=== PATIENT | female | born 1935 | race Caucasian/White ===

== ENCOUNTER 2024-03-30 19:30 | Inpatient (IN) ==
--- OUTSIDE RECORDS SUMMARY | 2024-03-30 19:37 | External Medical Summary | Summary of Care ---
Author Name Unknown Organization [facility] Address [address] [facility] [place] [address] Phone [phone] Care Team Providers Care Tie Mill Operator Name Role Phone Brody Marin PA-C Primary Care Provider Encounter Details Date Type Department Care Team (Late st Contact Info) Description 12/07/2023 Result Scan Unspecified Department <No scans attached> Allergies No known active allergiesdocumented as of this encounter (statuses as of 01/09/2024) Medications Medication Sig Dispensed Refills Start Date End Date Status ASPIRIN 81 MG PO TABS one daily 0 Act rosmery CALCIUM 600 600 MG PO TABS daily 0 Active GABAPENTIN 300 MG PO CAPS one daily at bedtime 0 Active EQL PAIN RELIEF EXTRA STRENGTH 500 MG PO CAPS 2 tablets every 4-6 hours as needed for back pain 0 Active Losartan Potassium 100 MG Tablet Take 1 Tablet by mouth in the morning. In the morning.. 0 02/09/2016 Active Vit-Fe Fumarate-FA (PNV PLUS MULTIVITAMIN) 27-1 MG TABS TAKE ONE TABLET BY MOUTH DAILY AT NOON 1 04/09/2016 Active nitroglycerin (NITROSTAT) 0.[address] ONE UNDER TONGUE NEEDED FOR CHEST PAIN 1 08/24/2016 Active amLODIPine (NORVASC) 2.5 MG TabletIndications:S/P AVR (aortic valve replacement),S/P CABG (coronary artery bypass graft),Systolic hypertension Take 1 Tab by mouth daily. 90 Tab 11 11/02/2016 Active glipiZIDE (GLUCOTROL) 10 MG Tablet Take 1 Tablet by mouth in the morning. 0 Active furosemide (LASIX) 20 MG Tablet Take 1 tablet every OTHER day. 30 Tab 5 02/18/2019 Active Atorvastatin Calcium 10 MG Oral Tablet (Lipitor) Take 1 Tablet by mouth in the morning. 0 08/29/2021 Active Metoprolol Succinate ER 25 MG Oral Tablet Extended Release 24 Hour (toPROL XL) Take 1 Tablet by mouth in the morning. 0 09/17/2021 Active documented as of this encounter (statuses as of 01/09/2024) Active Problems Problem Noted Date Diagnosed Date Chronic heart failure with preserved ejection fr action 12/21/2023 Dyslipidemia, goal LDL below 70 12/21/2023 S/P CABG x 3 12/21/2023 CAD (coronary artery disease) 12/24/2013 Aortic valve stenosis 12/24/2013 Postoperative anemia due to acute blood loss Thrombocytopenia 12/24/2013 HTN, goal below 140/80 12/24/2013 Diabetes mellitus type 2, controlled 12/24/2013 Left ventricular diastolic dysfunction, NYHA cla ss 1 12/24/2013 documented as of this encounter (statuses as of 01/09/2024) Immunizations Name Administration Dates Next Due Pneumococcal Conjugate Vacc, 13 Valent (Prevnar) 06/16/2017 Pneumococcal Polysaccharide PPV23 (Pneumovax) Season Influenza, Quad, PF, Adjuvanted, 65+ Yrs, IM (FLUAD) 07/07/2020 Seasonal Influenza, PF, 6 M & above, IM , (FluLaval or Fluzone) 08/20/2018,06/16/2017 documented as of this encounter Social History Tobacco Use Types Packs/Day Years Used Date Smoking Tobacco: Never Smokeless Tobacco: Never Alcohol Use Standard Drinks/Week Comments Not Asked 0 (1 standard drink = 0.6 oz pur e alcohol) Sex and Gender Information Value Date Recorded Sex Assigned at Not on file Gender Identity Not on file Sexual Orientation Not on file Job Start Date Occupation Industry Not on file Not on file Not on file documented as of this encounter Functional Status Functional Status Response Date of Assess ment Do you have serious difficul ty walking or climbing stairs? (5 years old or older) No 12/17/2013 documented as of this encounter Plan of Treatment Upcoming Encounters Date Type Department Care Team (Late st Contact Info) Description 12/26/2024 9:30 AM EDT Office Visit Cardiology [address] [place] [address] Aurea Corado PA-C [address] [place] [address] Health Maintenance Due Date Last Done Comments Depression Screening 1947 Diabetic Eye Exam 1953 Diabetic Foot Exam 1953 DTaP,Tdap,and Td Vaccines (1 - Tdap) 1954 Zoster Vaccines (1 of 2) 1985 DXA Scan 09/22/2018 09/22/2011 COVID-19 Vaccine (3 - season) 2023 01/05/2021, 12/15/2020 HbA1c 05/26/2023 11/23/2022, 09/05, 09/12/2018, Additional history exists Albumin/Creatinine Ratio 11/24/2023 023, 09/28/2021, 09/12/2018, Additional history exists Influenza Vaccine (FLU shot) (Season Ended) 2024 07/07/2020, 08/20/2018, 06/16/2017 Pneumococcal Vaccine: 65+ Years Completed 12/20/2022, 06/16/2017, 04/17/2014 GARDASIL-HPV IMMUNIZATION SERIES Aged Out No longer eligible based on patient's age to complete this topic Hepatitis B Aged Out No longer eligi ble based on patient's age to complete this topic MENINGOCOCCAL (MENACTRA/MENVEO) Aged Out No longer eligible based on patient's age to complete this topic documented as of this encounter Medical Devices Implanted Type Area Test Puller Device Identifier Shelf Expiration Date Model / Serial / Lot Valve Aor Tamayo Ii 23mm T505 - [id number] Implanted:Qty : 1 on 12/17/2013 at OR [facility] [place] Tissue - Non Human N/A: Heart [employer] : CARDIAC SURGERY 10/27/2016 23-T505 / [id number] / Marker Coronary [facility] - [id number] Implanted:Qty : 2 on 12/17/2013 at OR [facility] N/A: Heart [employer] 10/04/2016 [facility] / / [id number] Sut Steel 6 M654g - [id number] Implanted:Qty : 6 on 12/17/2013 at OR [facility] N/A: Chest JNJ : [employer] 10/04/2018 [id number] / / [id number] documented as of this encounter Procedures Procedure Name Priority Date/Time Associated Diagnosis Comments EKG SCANNED RESULT 12/07/2023 documented in this encounter Results * EKG SCANNED RESULT (12/07/2023) 12/07/2023 No Physician Data Unknown EKG documented in this encounter Advance Directives Latest Code Status on File Code Status Date Activated Date Inactivated Comments Full Code 12/17/2013 1:45 PM 12/24/2013 3:32 PM This order reflects the patients wishes and were consensually agreed upon. Care Teams Tie Mill Operator Relationship Specialty Start Date End Date Brody Marin PA-C [address] [place] [id number] PCP - General Physician Software Engineer Sales 10/19/21 documented as of this encounter
--- OUTSIDE RECORDS SUMMARY | 2024-03-30 19:37 | External Medical Summary | Summary of Care ---
Author Name Unknown Organization [facility] Address [address] [facility] [address] Phone [phone] Care Team Providers Care Supervisor Sewer System Name Role Phone Brody Marin PA-C Primary Care Provider Encounter Details Date Type Department Care Team (Late st Contact Info) Description 11/04/2023 Result Scan Unspecified Department <No scans attached> [...] 12/26/2024 9:30 AM EDT Office Visit Cardiology [address] [place] [address] Aurea Corado PA-C [address] [place] [address] Health Maintenance Due Date Last Done Comments [...] this encounter Medical Devices Implanted Type Area Glass Or Mirror Inspector Device Identifier Shelf Expiration Date Model / Serial / Lot Valve Aor Tamayo Ii 23mm T505 - [id number] Implanted:Qty : 1 on 12/17/2013 at OR [facility] [place] Tissue - Non Human N/A: Heart [employer] : CARDIAC SURGERY 10/27/2016 23-T505 / [id number] / Marker Coronary [facility] - [id number] Implanted:Qty : 2 on 12/17/2013 at OR [facility] [place] [facility] N/A: Heart [employer] 10/04/2016 [facility] / / [id number] Sut Steel 6 M654g - [id number] Implanted:Qty : 6 on 12/17/2013 at OR [facility] [place] N/A: Chest JNLore : [employer] 10/04/2018 M654G / / [id number] documented as of this encounter Procedures Procedure Name Priority Date/Time Associated Diagnosis Comments ECHOCARDIOLOGY SCANNED RESULT 11/04/2023 documented in this encounter Results * ECHOCARDIOLOGY SCANNED RESULT (11/04/2023) 11/04/2023 No Physician Data Unknown ECHOCARDIOLOGY documented in this encounter Advance Directives Latest Code Status on File Code Status Date Activated Date Inactivated Comments Full Code 12/17/2013 1:45 PM 12/24/2013 3:32 PM This order reflects the patients wishes and were consensually agreed upon. Care Teams Supervisor Sewer System Relationship Specialty Start Date End Date Brody Marin PA-C [address] [place] [id number] PCP - General Physician Bariatric Coordinator 10/19/21 documented as of this encounter
--- OUTSIDE RECORDS SUMMARY | 2024-03-30 19:37 | External Medical Summary | Summary of Care ---
Author Name Unknown Organization [facility] [address] [facility] [address] Phone [phone] Care Team Providers Care Cook Candy Name Role Phone Brody Marin PA-C Primary Care Provider Reason for Visit * Reason Comments Follow Up Yearly follow up. Fl utter a couple weeks ago but drank more water and it subsided. Edema under control with diuretic. Denies chest pain, SOB and dizziness. Encounter Details Date Type Department Care Team (Late st Contact Info) Description 12/21/2023 1:00 PM EDT Office Visit Cardiology [address] [place] [phone] Aurea Corado PA-C [address] [place] [phone] S/P AVR (aortic valve replacement)*; Coronary artery disease involving [place] coronary artery of [place] heart without angina pectoris; S/P CABG x 3; HTN, goal below 140/80; Dyslipidemia, goal LDL below 70; Chronic heart failure with preserved ejection fraction (HCC) Allergies No known active allergiesdocumented as of this encounter (statuses as of 12/21/2023) Medications Medication Sig Dispensed Refills Start Date End Date Status ASPIRIN 81 MG PO TABS one daily 0 Active CALCIUM 600 600 MG PO TABS daily [...] 1 08/24/2016 Active amLODIPine (NORVASC) 2.5 MG TabletIndications:S /P AVR (aortic valve replacement),S/P CABG (coronary artery [...] mouth in the morning. 0 09/17/2021 Active Januvia 50 MG Oral Tablet Take 1 Tablet by mouth in the morning. 0 Active Jardiance 25 MG Oral Tablet Take 1 Tablet by mouth in the morning. 0 10/14/2021 12/21/2023 Discontinued (Patient preference/d iscontinuati on) Potassium Chloride ER 10 MEQ Oral Capsule Extended Release TAKE 1 CAPSULE BY MOUTH ONCE A DAY WHEN TAKING THE SECOND LASIX DOSE 0 09/14/2021 12/21/2023 Discontinued (Medication List Clean Up) documented as of this encounter (statuses as of 12/21/2023) Active Problems Problem Noted Date Diagnosed Date [...] as of this encounter (statuses as of 12/21/2023) Immunizations Name Administration Dates Next Due Pneumococcal [...] Never Alcohol Use Standard Drinks/Week Comments Not Currently 0 (1 standard drink = 0.6 oz pur e alcohol) Sex and Gender Information Value Date Recorded Sex Assigned at Not on file Gender Identity Not on file Sexual Orientation Not on file Job Start Date Occupation Industry Not on file Not on file Not on file documented as of this encounter Last Filed Vital Signs Vital Sign Reading Time Taken Comments Blood Pressure 128/66 12/21/2023 1:05 PM EDT Pulse 72 12/21/2023 1:05 PM EDT Temperature - - Respiratory Rate 16 12/21/2023 1:05 PM EDT Oxygen Saturation - - Inhaled Oxygen Concentration - - Weight - - Height - - Body Mass Index - - documented in this encounter Functional Status Functional Status Response Date of Assess ment Do you have serious difficul ty walking or climbing stairs? (5 years old or older) No 12/17/2013 documented as of this encounter Progress Notes * Aurea Corado PA-C - 12/21/2023 1:12 PM EDT Images from the original note were not included. 12/21/2023 Cardiology F/U: SUBJECTIVE: Paloma Skinner is a 88 year old female who presents today with her daughter for routine cardiology follow-up. Last clinic evaluation approximately [address] Epps. History includes: 1. Status post cardiac surgery December 2013 for severe calcific aortic disease and diffuse coronary atherosclerosis, receiving a 23 mm Tamayo bioprosthesis and coronary bypass grafting with a GARCIA graft to LAD, saphenous vein graft to the right coronary artery and saphenous vein graft to the obtuse marginal. 2. Mixed cardiomyopathy with congestive heart failure at initial presentation with return to near normal LV function post recovery. EF 50% echocardiogram 10/29/2015, stable per November 2023 3. Nonspecific intraventricular conduction delay. 4. History of iron-deficiency anemia. 5. Hypertension. 6. Bilateral carotid artery disease 7. Chronic renal insufficiency class 3 8. Labile hypertension Elan hospitalized at [facility] in November 2023 with complaints of worsening shortness of breath. She was found to have acute on chronic heart failure with preserved ejection fraction with mild pulmonaryedema on chest x-ray and small right pleural effusion. She was treated with IV Lasix initially with significant improvement. Echo revealed preserved LV systolic function with mild LVH and grade 2 diastolic dysfunction. Bioprosthetic aortic valve with normal gradients. During admission she had several episodes of nonsustained atrial tachycardia. Ongoingbeta-carlin recommended. No medication changes were made on discharge. She presents today feeling well. She saw her PCP last week who made no medication changes. She is taking furosemide 20 mg every other day. She has been weighing herself several times per week and this is stable. She notes great improvement in her shortness of breath since hospital discharge. No worsening lower extremity edema. No recent chest pain. Tolerating medications. She voices no acute cardiac concerns today. Patient and daughter questioned whether or not they need to take potassium supplementation. She hasnot been taking her potassium at home. Per review of labs from [facility], her potassium was on the upper limit of normal around 5.0. Review of Systems: See HPI for pertinent positives. All others negative, other than those noted in HPI. Patient Active Problem List Diagnosis Code CAD (coronary artery disease) I25.10 Aortic valve stenosis I35.0 Postoperative anemia due to acute blood loss D62 Thrombocytopenia ([facility]) D69.6 HTN, goal below 140/80 I10 Diabetes mellitus type 2, controlled ([facility]) E11.9 Left ventricular diastolic dysfunction, NYHA class 1 I51.89 Review of patient's allergies indicates: No Known Allergies Current Outpatient Medications Medication Sig Dispense Refill ASPIRIN 81 MG PO TABS one daily CALCIUM 600 600 MG PO TABS daily GABAPENTIN 300 MG PO CAPS one daily at bedtime EQL PAIN RELIEF EXTRA STRENGTH 500 MG PO CAPS 2 tablets every 4-6 hours as needed for back pain Losartan Potassium 100 MG Tablet Take 1 Tablet by mouth in the morning. In the morning.. 0 Vit-Fe Fumarate-FA (PNV PLUS MULTIVITAMIN) 27-1 MG TABS TAKE ONE TABLET BY MOUTH DAILY AT NOON 1 amLODIPine (NORVASC) 2.5 MG Tablet Take 1 Tab by mouth daily. 90 Tab 11 glipiZIDE (GLUCOTROL) 10 MG Tablet Take 1 Tablet by mouth in the morning. furosemide (LASIX) 20 MG Tablet Take 1 tablet every OTHER day. 30 Tab 5 Atorvastatin Calcium 10 MG Oral Tablet (Lipitor) Take 1 Tablet by mouth in the morning. Metoprolol Succinate ER 25 MG Oral Tablet Extended Release 24 Hour (toPROL XL) Take 1 Tablet by mouth in the morning. Potassium Chloride ER 10 MEQ Oral Capsule Extended Release TAKE 1 CAPSULE BY MOUTH ONCE A DAY WHEN TAKING THE SECOND LASIX DOSE nitroglycerin (NITROSTAT) 0.[address] ONE UNDER TONGUE NEEDED FOR CHEST PAIN (Patient not taking: No sig reported) 1 Januvia 50 MG Oral Tablet Take 1 Tablet by mouth in the morning. No current facility-administered medications for this visit. OBJECTIVE/PHYSICAL EXAMINATION: BP 128/66 | Pulse 72 | Resp 16 No weight performed today. General: no acute distress and stated age Head: normocephalic, no masses, lesions, tenderness or abnormalities Eyes: conjunctiva are pink and non-injected, sclera clear Throat: clear Nares: without discharge Neck: supple, no adenopathy, , normal jugular venous pulse, no hepatojugular reflux, there are bilateral carotid artery bruits Chest: normal shape and normal respiratory effort Lungs: clear to auscultation and percussion Cardiac Exam: - regular rate & rhythm, is a grade 2/6 systolic murmur with crisp valve closure sounds Pulses: 2(+) throughout Abdomen: abdomen soft, non-tender, no abnormal masses, no hepatosplenomegaly, no abdominal bruit, no femoral bruit Musculoskeletal: no gait disturbance, no joint inflammation, no deforming arthritis Extremities 1+ edema, no cyanosis, pulses intact 2+/4 Neuro: grossly normal exam Data: Echocardiogram report reviewed from [facility] dated November 04, 2023: Echo report reviewed dated Jun 2023: Interpretation Summary The qualitative LV ejection fraction is 55-59% (normal). The LV wall thickness is mildly increased (concentric). The left atrium is moderately enlarged (42-48 ml/m^2). The left ventricular diastolic function is moderately abnormal (grade II). There is an aortic valve bioprosthetic present. The aortic valve prosthesis systolic gradients are normal for this type prosthesis. Significant aortic valve prosthesis regurgitation is absent. Mild mitral regurgitation is present. Compared to prior study of 06/10/2021, there is no significant change. EKG October 19, 2021, personally reviewed Sinus rhythm at 61 beats per minute with nonspecific interventricular conduction delay Q-waves anteroseptal No significant change from prior Echocardiogram June 10, 2021 The qualitative LV ejection fraction is 45-49% (mildly reduced). There is an aortic valve bioprosthetic present. The aortic valve prosthesis systolic gradients are normal for this type prosthesis. Significant aortic valve prosthesis regurgitation is absent The septal motion is abnormal consistent with the post-operative state. The left atrium is moderately enlarged (42-48 ml/m^2). Compared to previous echo dated 12/17/17, no significant change. Labs reviewed from [facility] ASSESSMENT: 88 year old female 1. Chronic stable ischemic heart disease status post coronary bypass December 2013 grafting with class1-2 functional capacity with age limitations and no anginal symptoms 2. Aortic valve replacement December 2013 - stable echo findins 3. Chronic hypertensive heart disease: Well controlled with minimal peripheral edema. 4. Recent admission for HFpEF - iproved with IV lasix -appears euvolemic on low dose furosemide -potassium upper limit of normal. Patient has not been taking, will remove from med list PLAN: Stable cardiac symptoms BP controlled Appears euvolemic Recent hosptial records reviewed. Stable echo findings. The patient is to continue all current medications as listed above. No changes were made at today'svisit. CHF tools discussed including daily weights, salt/sodium/fluid restriction, and use of diuretic protocol. Patient is being evaluated in the cardiology office for ongoing care/risk management for AVR; CAD. I spent a total of 30 minutes on the date of service in preparation, delivery, and documentation ofthe care provided to Paloma Skinner excluding any time spent in the performance of separately billed services. The patient agrees to the above plan and will call with additional questions or concerns. ER with all emergencies advised. Follow Up: Return in about 1 year (around 12/20/2024). Aurea Corado PA-C Department of Cardiology This chart was completed in part utilizing [employer] Speech Voice Recognition Software. Grammatical errors, random word insertions, prounoun errors, and incomplete sentences are an occasional consequence of this system due to software limitations, ambient noise, and hardware issues. Any formal questions or concerns about the content, text, or information contained within the body of this dictation should be directly addressed to the provider for clarification. documented in this encounter Nursing Notes * Pio Zuñiga LPN - 12/21/2023 1:04 PM EDT Patient identified by full name and date of Chief Complaint Patient presents with Follow Up Yearly follow up. Flutter a couple weeks ago but drank more water and it subsided. Edema under control with diuretic. Denies chest pain, SOB and dizziness. Examination Room: 4 Name: Paloma Skinner Date of : (1935). Reason for Visit: Year follow up Interim Hospitalization(s): [facility] 11/25 Problems/Concerns: See chief complaint Chest Pain/SOB: Denies [facility] Discussed: Not applicable My [facility] is a way you can talk to your provider online through e-mail. Would you like to sign up? I can activate it for you? DECLINES Patient was instructed to not get up on the exam table until directed and assisted by their provider; patient is to remain seated in the chair/ wheelchair/ exam table for fall prevention and safety reasons. Patient is aware to have assistance to step down off exam table with personnel. Patient voiced full comprehension of instructions. documented in this encounter Plan of Treatment Upcoming Encounters Date Type Department Care Team (Late st Contact Info) Description 12/26/2024 9:30 AM EDT Office Visit Cardiology [address] [place] [address] Aurea Corado PA-C [address] [facility] [place] [address] Health Maintenance Due Date Last Done Comments Depression Screening 1947 Diabetic Eye Exam 1953 Diabetic Foot Exam 1953 DTaP,Tdap,and Td Vaccines (1 - Tdap) 1954 Zoster Vaccines (1 of 2) 1985 DXA Scan 09/22/2018 09/22/2011 COVID-19 Vaccine (3 - 2022- season) 2023 01/05/2021, 12/15/2020 HbA1c 05/26/2023 11/23/2022, [...] this encounter Medical Devices Implanted Type Area Rayon Coner Device Identifier Shelf Expiration Date Model / Serial / Lot Valve Aor Tamayo Ii 23mm T505 - [id number] Implanted:Qty : 1 on 12/17/2013 at [place] [facility] [place] Tissue - Non Human N/A: Heart [employer] : CARDIAC SURGERY 10/27/2016 23-T505 / [id number] / Marker Coronary [facility] - [id number] Implanted:Qty : 2 on 12/17/2013 at OR [facility] [place] N/A: Heart [employer] 10/04/2016 [facility] / / [id number] Sut Steel 6 M654g - [id number] Implanted:Qty : 6 on 12/17/2013 at OR [facility] [place] N/A: Chest JNJ : [employer] 10/04/2018 M654G / / [id number] documented as of this encounter Visit Diagnoses Diagnosis S/P AVR (aortic valve replacement)- Primary Heart valve replaced by other means Coronary artery disease involving [place] coronary artery of [place] heart without angina pectoris S/P CABG x 3 Postsurgical aortocoronary bypass status HTN, goal below 140/80 Unspecified essential hypertension Dyslipidemia, goal LDL below 70 Other and unspecified hyperlipidemia Chronic heart failure with preserved ejection fraction (HCC) documented in this encounter Advance Directives Latest Code Status on File Code Status Date Activated Date Inactivated Comments Full Code 12/17/2013 1:45 PM 12/24/2013 3:32 PM This order reflects the patients wishes and were consensually agreed upon. Care Teams Cook Candy Relationship Specialty Start Date End Date Brody Marin PA-C [address] [place] [id number] PCP - General Physician Tool Polisher 10/19/21 documented as of this encounter"
--- NOTE | 2024-03-30 19:56 | Emergency Department Note ---
History of Present Illness General Chief complaint: Shortness of Breath/Dyspnea Stated complaint: SOB, Afib, Hyperglycemia Time Seen by Provider: 03/30/24 19:44 Source: patient, family (Daughter who showed up at the bedside), RN notes reviewed and old records reviewed (11/03/23-discharge summary when she was in the hospital for CHF) Mode of arrival: EMS Limitations: no limitations History of Present Illness This patient is a 88-year-old female who comes in after being short of breath this afternoon. Denies cough or fever no chest pain no fall or trauma she says she had a similar episode in November when she was admitted. She does have history of aortic valve replacement denies that she is on any blood thinners denies any palpitations lightheadedness or dizziness no abdominal pain. She was brought in by EMS. She does not wear home oxygen. Apparently she was 88% per EMS but here she is in the low to mid 90s. Home Medications Medication Instructions Recorded Confirmed Type amlodipine 2.5 mg tablet 2.5 mg PO PM 11/03/23 03/30/24 History aspirin 81 mg tablet,delayed 81 mg PO QAM 11/03/23 03/30/24 History release atorvastatin 10 mg tablet 10 mg PO HS 11/03/23 03/30/24 History calcium carbonate 600 mg-vitamin 1 cap PO QAM 11/03/23 03/30/24 History D3 5 mcg (200 unit) capsule (Calcium 600 + D(3)) furosemide 20 mg tablet 20 mg PO DAILY PRN Edema 11/03/23 03/30/24 History gabapentin 300 mg capsule 300 mg PO HS 11/03/23 03/30/24 History gabapentin 300 mg capsule 300 mg PO QDL PRN Pain 11/03/23 03/30/24 History glipizide 10 mg tablet 20 mg PO QAM 11/03/23 03/30/24 History metoprolol succinate 25 mg 25 mg PO QAM 11/03/23 03/30/24 History tablet,extended release 24 hr vitamin with calcium 1 tab PO MOWEFR 11/03/23 03/30/24 History no.72-iron 27 mg-folic acid 1 mg tablet (M- Plus) acetaminophen 325 mg tablet 325 - 650 mg PO Q6 PRN Fever Or 03/30/24 03/30/24 History (Tylenol) Pain sitagliptin phosphate 50 mg tablet 50 mg PO QAM 03/30/24 03/30/24 History (Januvia) sodium zirconium cyclosilicate 10 10 g PO UD 03/30/24 03/30/24 History gram oral powder packet (Lokelma) Allergies Allergy/AdvReac Type Severity Reaction Status Date / Time No Known Allergies Allergy Unverified 10/12/13 18:28 Past Med/Surg History Problem List (Updated 03/31/24 @ 01:44 by Maninder Gtz MD) Lab test negative for COVID-19 virus (Acute) Hypokalemia (Acute) Acute renal failure (Acute) CHF (congestive heart failure) (Acute) Bilateral lower extremity edema (Acute) SOB (shortness of breath) (Acute) Urinary incontinence Vulvar irritation HTN, goal below 150/[address] of the abdomen Dyslipidemia Hyperkalemia Labia irritation CAD (coronary artery disease) Diabetes mellitus, type II CKD (chronic kidney disease), stage III Diastolic dysfunction Acute heart failure with preserved ejection fraction (HFpEF) TRACIE (acute kidney injury) (Acute) Dependent edema (Acute) Bilateral hydronephrosis (Acute) UTI (urinary tract infection) (Acute) Elevated troponin (Acute) Dyspnea (Acute 10/12/13) Aortic stenosis (Acute 10/16/13) Hypertension (Chronic) Diabetes (Chronic) Surgical History History of coronary artery bypass graft History of aortic valve replacement Family History Other Diabetes Heart disease Social History Smoking Status: Never smoker Hx Alcohol Use: No Hx Substance Use: No Preferred Language: Japanese Communication Ability: Effective Current Living Situation: Family Feels Safe at Home: Yes Assistive Devices: Glasses and Walker Review of Systems A total of 10 systems reviewed and were otherwise negative Physical Exam Vital Signs Vital Signs - 24 hr 03/30/24 19:39 03/30/24 19:39 03/30/24 19:39 Temperature 36.4 C Temperature Source Oral Pulse Rate 63 Pulse Rate from SpO2 Sensor Respiratory Rate 20 Respiratory Effort / Characteristics Non-Labored Spontaneous Respiratory Depth Normal Respiratory Pattern Regular Blood Pressure 154/72 H Blood Pressure Mean 99 Pulse Oximetry 94 94 Oxygen Delivery Method Room Air Room Air Room Air Sepsis Recent Fever Within 48 Hours No Sepsis New/Unexplained Change in Mental Status No Sepsis Action Taken by Nursing No Action Required 03/30/24 19:45 03/30/24 19:52 03/30/24 20:33 Temperature Temperature Source Pulse Rate 62 66 55 L Pulse Rate from SpO2 Sensor 64 56 L Respiratory Rate 20 14 Respiratory Effort / Characteristics Respiratory Depth Respiratory Pattern Blood Pressure 154/72 H 141/55 H Blood Pressure Mean 99 83 Pulse Oximetry 93 94 Oxygen Delivery Method Room Air Room Air Sepsis Recent Fever Within 48 Hours Sepsis New/Unexplained Change in Mental Status Sepsis Action Taken by Nursing 03/30/24 21:06 03/30/24 21:30 03/30/24 22:00 Temperature Temperature Source Pulse Rate 71 57 L 63 Pulse Rate from SpO2 Sensor 78 58 L 54 L Respiratory Rate 18 18 16 Respiratory Effort / Characteristics Respiratory Depth Respiratory Pattern Blood Pressure 136/65 152/72 H 143/55 H Blood Pressure Mean 88 98 84 Pulse Oximetry 90 93 92 Oxygen Delivery Method Room Air Room Air Room Air Sepsis Recent Fever Within 48 Hours Sepsis New/Unexplained Change in Mental Status Sepsis Action Taken by Nursing 03/31/24 00:46 Temperature Temperature Source Pulse Rate 62 Pulse Rate from SpO2 Sensor Respiratory Rate Respiratory Effort / Characteristics Respiratory Depth Respiratory Pattern Blood Pressure Blood Pressure Mean Pulse Oximetry Oxygen Delivery Method Sepsis Recent Fever Within 48 Hours Sepsis New/Unexplained Change in Mental Status Sepsis Action Taken by Nursing General: Well developed well nourished older female who appears in no acute distress, breathing comfortably on room air. Normal speech HEENT: Normal cephalic atraumatic. Pupils are equal round and reactive to light. Extraocular movements are intact. Oropharynx is pink with moist mucous membranes. No swelling of the mouth lips or tongue. Neck: Supple with a midline trachea. No meningeal signs or stiffness, no JVD or bruits. No Stridor. Chest: Clear to auscultation bilaterally. No wheezes or rhonchi. No increased work of breathing. Heart: Regular rate and rhythm without murmurs or gallops. Abdomen: Soft nontender, nondistended without rebound guarding or rigidity. Extremities: She does have bilateral lower extremity edema greater on the right. She says normally the right is swollen greater than the left chronically. Spine/Back. Non tender to palpation. No CVA tenderness Skin: Good turgor without rashes. Neurologic exam: Cranial nerves two through 12 are intact. Motor and sensation are intact and symmetrical throughout. Course Administered Medications Insulin Aspart (Insulin Aspart Per Unit Charge) 0 units SC ACHS MINOO Stop: 04/29/24 21:49 Last Admin: 03/30/24 22:44 Dose: 9 units Documented By: [facility] Co-signed By: JOSÉ MIGUEL Discontinued Medications Furosemide (Furosemide Inj 20 Mg/2 Ml Vial) 20 mg IV ONE ONE Stop: 03/30/24 20:24 Last Admin: 03/30/24 20:28 Dose: Not Given Documented By: SELENE Furosemide (Furosemide 40 Mg/4 Ml Vial) 40 mg IV ONE STA Stop: 03/30/24 23:10 Last Admin: 03/30/24 23:35 Dose: 40 mg Documented By: GERARD Albumin Human (Albumin 25%) 12.5 gm in 50 mls @ 50 mls/hr IV ONE STA Stop: 03/31/24 00:08 Last Infusion: 03/31/24 00:33 Dose: Infused Documented By: Admin: 03/30/24 23:35 Dose: 50 mls/hr Documented By: HB Potassium Chloride (K Jamey / Wtr) 10 meq in 100 mls @ 100 mls/hr IV Q1H MINOO Stop: 03/31/24 01:14 Last Admin: 03/31/24 01:38 Dose: 100 mls/hr Documented By: Infusion: 03/31/24 01:35 Dose: Infused Documented By: Admin: 03/31/24 00:26 Dose: 100 mls/hr Documented By: GERARD Insulin Glargine (Lantus Per Unit Charge) 5 units SQ NOW STA Stop: 03/30/24 21:47 Last Admin: 03/30/24 22:44 Dose: 5 units Documented By: [facility] Co-signed By: JOSÉ MIGUEL Potassium Chloride (Potassium Chloride Pwd 20 Meq Pack) 40 meq PO NOW STA Stop: 03/30/24 21:44 Last Admin: 03/30/24 22:40 Dose: 40 meq Documented By: [facility] Potassium Chloride (Potassium Chloride Pwd 20 Meq Pack) 40 meq PO NOW STA Stop: 03/30/24 23:05 Last Admin: 03/30/24 23:35 Dose: 40 meq Documented By: GERARD Medical Decision Making Differential Diagnosis CHF, pneumonia, COPD, cardiac disease, arrhythmia, electrolyte or metabolic abnormality, infection Medical Records Attestation: I reviewed the patient's medical records. Home Medications Current Medication List: was personally reviewed by me Laboratory Data Attestation: I reviewed the patient's lab results. 03/30/24 19:49 03/30/24 19:49 Lab Results 03/30/24 03/30/24 03/30/24 Range/Units 19:49 21:00 22:39 WBC 8.96 (4.8-10.8) K/ul RBC 3.41 L (4.20-5.40) M/uL Hgb 9.0 L (12.0-16.0) g/dl Hct 28.2 L (37.0-47.0) % MCV 82.7 (80.0-100.0) fL MCH 26.4 (25.0-34.0) pg MCHC 31.9 L (32.0-36.0) g/dL RDW Std Deviation 46.1 (36.4-46.3) fL RDW Coeff of Siomara 15.2 H (11.5-14.5) % Plt Count 257 (130-400) K/uL MPV 8.8 L (9.4-12.4) fL Immature Gran % (Auto) 0.4 % Neut % (Auto) 73.4 % Lymph % (Auto) 16.6 % [place] % (Auto) 7.1 % Eos % (Auto) 2.1 % Baso % (Auto) 0.4 % Neut # (Auto) 6.56 H (1.40-6.50) K/uL Lymph # (Auto) 1.49 (1.20-3.40) K/uL [place] # (Auto) 0.64 H (0.11-0.59) K/uL Eos # (Auto) 0.19 (0.00-0.50) K/uL Baso # (Auto) 0.04 (0.00-0.20) K/uL Immature Gran # (Auto) 0.04 (0.01-0.20) K/uL PT 10.6 (9.0-12.0) Seconds INR 1.0 (0.9-1.1) APTT 30 (21-31) Seconds PTT Ratio 1.1 Sodium 132 L (136-145) mmol/L Potassium 2.7 L (3.5-5.1) mmol/L Chloride 98 (98-107) mmol/L Carbon Dioxide 24 (21-32) mmol/L Anion Gap 10 (3-11) BUN 67 H (6-23) mg/dl Creatinine 3.57 H (0.6-1.2) mg/dl Est Cr Clr Drug Dosing 10.6 ml/min Est GFR ( Amer) 12.5 ml/min Est GFR (Non-Af Amer) 10.8 ml/min BUN/Creatinine Ratio 18.8 (10-20) Glucose 310 H* (70-99(Fasting)) mg/dl POC Glucose 314 H* (70-99) mg/dl Calcium 8.4 L (8.6-10.3) mg/dl Magnesium 3.4 H (1.7-2.4) mg/dl Total Bilirubin 0.3 (0.2-1.0) mg/dl AST 10 L (13-39) U/L ALT 7 (7-52) U/L Alkaline Phosphatase 65 (34-104) U/L Troponin I High Sens 17.1 H (0-14) pg/ml B-Natriuretic Peptide 1385 H (0-100) pg/ml Total Protein 6.7 (6.0-8.3) gm/dl Albumin 2.8 L (3.4-5.0) gm/dl Globulin 3.9 (2.5-4.0) gm/dl Albumin/Globulin Ratio 0.7 L (0.9-2) Lipase 44 (11-82) U/L Adenovirus (PCR) Not Detected (NotDetected) B. pertussis DNA (PCR) Not Detected (NotDetected) B.parapertussis DNA PCR Not Detected (NotDetected) C. pneumoniae DNA (PCR) Not Detected (NotDetected) Coronavirus OC43 (PCR) Not Detected (NotDetected) Coronavirus HKU1 (PCR) Not Detected (NotDetected) Coronavirus 229E (PCR) Not Detected (NotDetected) SARS-CoV-2 (PCR) Not Detected (NotDetected) Coronavirus NL63 (PCR) Not Detected (NotDetected) Human Metapneumovir PCR Not Detected (NotDetected) Influenza Type A (PCR) Not Detected (NotDetected) Influenza Type B (PCR) Not Detected (NotDetected) M. pneumoniae (PCR) Not Detected (NotDetected) Parainfluenza 1 (PCR) Not Detected (NotDetected) Parainfluenza 2 (PCR) Not Detected (NotDetected) Parainfluenza 3 (PCR) Not Detected (NotDetected) Parainfluenza 4 (PCR) Not Detected (NotDetected) RSV (PCR) Not Detected (NotDetected) Entero/Rhino (PCR) Not Detected (NotDetected) 03/30/24 Range/Units 22:43 WBC (4.8-10.8) K/ul RBC (4.20-5.40) M/uL Hgb (12.0-16.0) g/dl Hct (37.0-47.0) % MCV (80.0-100.0) fL MCH (25.0-34.0) pg MCHC (32.0-36.0) g/dL RDW Std Deviation (36.4-46.3) fL RDW Coeff of Siomara (11.5-14.5) % Plt Count (130-400) K/uL MPV (9.4-12.4) fL Immature Gran % (Auto) % Neut % (Auto) % Lymph % (Auto) % King[place] % (Auto) % Eos % (Auto) % Baso % (Auto) % Neut # (Auto) (1.40-6.50) K/uL Lymph # (Auto) (1.20-3.40) K/uL King[place] # (Auto) (0.11-0.59) K/uL Eos # (Auto) (0.00-0.50) K/uL Baso # (Auto) (0.00-0.20) K/uL Immature Gran # (Auto) (0.01-0.20) K/uL PT (9.0-12.0) Seconds INR (0.9-1.1) APTT (21-31) Seconds PTT Ratio Sodium (136-145) mmol/L Potassium (3.5-5.1) mmol/L Chloride (98-107) mmol/L Carbon Dioxide (21-32) mmol/L Anion Gap (3-11) BUN (6-23) mg/dl Creatinine (0.6-1.2) mg/dl Est Cr Clr Drug Dosing ml/min Est GFR ( Amer) ml/min Est GFR (Non-Af Amer) ml/min BUN/Creatinine Ratio (10-20) Glucose (70-99(Fasting)) mg/dl POC Glucose (70-99) mg/dl Calcium (8.6-10.3) mg/dl Magnesium (1.7-2.4) mg/dl Total Bilirubin (0.2-1.0) mg/dl AST (13-39) U/L ALT (7-52) U/L Alkaline Phosphatase (34-104) U/L Troponin I High Sens 18.3 H (0-14) pg/ml B-Natriuretic Peptide (0-100) pg/ml Total Protein (6.0-8.3) gm/dl Albumin (3.4-5.0) gm/dl Globulin (2.5-4.0) gm/dl Albumin/Globulin Ratio (0.9-2) Lipase (11-82) U/L Adenovirus (PCR) (NotDetected) B. pertussis DNA (PCR) (NotDetected) B.parapertussis DNA PCR (NotDetected) C. pneumoniae DNA (PCR) (NotDetected) Coronavirus OC43 (PCR) (NotDetected) Coronavirus HKU1 (PCR) (NotDetected) Coronavirus 229E (PCR) (NotDetected) SARS-CoV-2 (PCR) (NotDetected) Coronavirus NL63 (PCR) (NotDetected) Human Metapneumovir PCR (NotDetected) Influenza Type A (PCR) (NotDetected) Influenza Type B (PCR) (NotDetected) M. pneumoniae (PCR) (NotDetected) Parainfluenza 1 (PCR) (NotDetected) Parainfluenza 2 (PCR) (NotDetected) Parainfluenza 3 (PCR) (NotDetected) Parainfluenza 4 (PCR) (NotDetected) RSV (PCR) (NotDetected) Entero/Rhino (PCR) (NotDetected) Imaging Data Attestation: I personally reviewed and interpreted this imaging study as follows: My Impression: Chest x-raythere is findings consistent with CHF with some pleural lesions in the bases right greater than left ECG Data Attestation: I personally reviewed and interpreted this ECG as follows: Indication: + SOB/dyspnea Rate (beats per minute): 62 Rhythm: + normal sinus and + other (Poor baseline) ECG Intervals/blocks: + Left bundle branch block ECG [place]: + Normal ECG ST segments: + Normal ST segments ECG Findings: + PVCs; no PACs Comparison ECG Date: from (01/06/2024) Change: no significant change MDM Narrative This patient comes in as described above. She was placed on a cardiac cath lab manager room B7. she was brought in by EMS. She did not require any medication on route. She says she is feeling better than she was. her O2 sat is in the low to mid 90s here without oxygen. She does seem to have some crackles when I listen to her bases of her lungs. Looking back through her chart, she does have a history of CHF. IV access was established, blood work was obtained, chest x- ray, EKG and multiple blood testing was obtained. I Also did a bio fire. She was reassessed frequently. Bio fire was negative. Chest x-ray does show pleural effusions with some congestive changes. EKG shows no ischemic changes. Troponin was mildly elevated at 17 when it was rechecked was 18.3 so it is not significant elevated she has baseline anemia with hemoglobin at 9. Her potassium is low at 2.7 but her kidney suggest renal failure with a elevated BUN and creatinine of 67 and 3.4. Her daughters did tell me she has been on medication to lower her potassium. I do think she needs to be admitted for further treatment evaluation with her kidney function being elevated this could be related to her kidneys as well as cardiac. I have consulted Dr. Farmer to see her in the ER and admit/observe her for these measures. Continuous cardiac monitoring: Orders placed in EMR for continuous cardiac monitoring: Upon my evaluation patient was noted to be normal sinus rhythm rate of 60 Impression & Plan CHF (congestive heart failure), SOB (shortness of breath), Bilateral lower extremity edema, Acute renal failure, Hypokalemia, Lab test negative for COVID- 19 virus Discharge Plan Visit Data Chief Complaint: Shortness of Breath/Dyspnea Stated Complaint: SOB, Afib, Hyperglycemia ED Provider: Maninder Gtz Discharge Problem: CHF (congestive heart failure), SOB (shortness of breath), Bilateral lower extremity edema, Acute renal failure, Hypokalemia, Lab test negative for COVID- 19 virus Forms Stand Alone Forms: My [facility] Prescriptions Prescriptions: No Action Lokelma 10 gram powder in packet 10 g PO UD Rx Instructions: as of today finding out it lowers potassium too much...plans to hold and only restart after doctors evaluation Januvia 50 mg tablet 50 mg PO QAM acetaminophen [Tylenol] 325 mg Tablet 325 - 650 mg PO Q6 PRN (Reason: Fever Or Pain) atorvastatin 10 mg tablet 10 mg PO HS glipizide 10 mg tablet 20 mg PO QAM amlodipine 2.5 mg tablet 2.5 mg PO PM metoprolol succinate 25 mg tablet extended release 24 hr 25 mg PO QAM M-Kevin Plus 27 mg iron- 1 mg tablet 1 tab PO MOWEFR aspirin 81 mg Tablet,Delayed Release (Dr/Ec) 81 mg PO QAM Calcium 600 + D(3) 600 mg-5 mcg (200 unit) Capsule 1 cap PO QAM gabapentin 300 mg capsule 300 mg PO QDL PRN (Reason: Pain) gabapentin 300 mg capsule 300 mg PO HS furosemide 20 mg tablet 20 mg PO DAILY PRN (Reason: Edema) Rx Instructions: Prescribed daily, pt states uses prn but hasn't been using Referrals Referrals: Brody Marin PATishaC [Primary Care Provider] - Discharge Problem: CHF (congestive heart failure) Qualifiers: Heart failure type: unspecified Heart failure chronicity: acute on chronic Q ualified Code(s): I50.9 - Heart failure, unspecified Acute renal failure Qualifiers: Acute renal failure type: unspecified Qualified Code(s): N17.9 - Acute kidney failure, unspecified
[2024-03-30 20:08] LABS: Basophils # (auto) 0.04 K/uL (0.00-0.20); Basophils % (auto) 0.4 %; Eosinophils # (auto) 0.19 K/uL (0.00-0.50); Eosinophils % (auto) 2.1 %; Hematocrit (blood only) 28.2 % (37.0-47.0); Immature Granulocytes # (auto) 0.04 K/uL (0.01-0.20); Immature Granulocytes % (auto) 0.4 %; Lymphocytes # (auto) 1.49 K/uL (1.20-3.40); Lymphocytes % (auto) 16.6 %; Mean Corpuscular Hemoglobin 26.4 pg (25.0-34.0); Mean Corpuscular Hgb Conc 31.9 g/dL (32.0-36.0); Mean Corpuscular Volume 82.7 fL (80.0-100.0); Mean Platelet Volume 8.8 fL (9.4-12.4); Monocytes # (auto) 0.64 K/uL (0.11-0.59); Monocytes % (auto) 7.1 %; Neutrophils # (auto) 6.56 K/uL (1.40-6.50); Neutrophils % (auto) 73.4 %; Platelet Count 257 K/uL (130-400); RDW Coefficient of Variation 15.2 % (11.5-14.5); RDW Standard Deviation 46.1 fL (36.4-46.3); Red Blood Count 3.41 M/uL (4.20-5.40); White Blood Count 8.96 K/ul (4.8-10.8)
[2024-03-30] MEDS: FUROSEMIDE INJ 20 MG/2 ML VIAL IV ONE (20:28)
[2024-03-30 20:33] LABS: Partial Thromboplastin Ratio 1.1; Partial Thromboplastin Time 30 Seconds (21-31); Prothrombin Time 10.6 Seconds (9.0-12.0)
[2024-03-30 20:35] LABS: Albumin Globulin Ratio 0.7 (0.9-2); Albumin Level 2.8 gm/dl (3.4-5.0); BUN Creatinine Ratio 18.8 (10-20); Bilirubin,Total 0.3 mg/dl (0.2-1.0); Calcium 8.4 mg/dl (8.6-10.3); Creatinine Clr Calc Pharmacy 10.6 ml/min; Est GFR (African American) 12.5 ml/min; Est GFR (Non-African American) 10.8 ml/min; Globulin 3.9 gm/dl (2.5-4.0); Potassium 2.7 mmol/L (3.5-5.1); Total Protein 6.7 gm/dl (6.0-8.3); Troponin I High Sensitivity 17.1 pg/ml (0-14)
[2024-03-30] MEDS ORDERED: DEXTROSE 50% 50 ML SYRINGE IV PRN (21:46)
[2024-03-30] MEDS ORDERED: GLUCOSE 40% GEL 15 GM TUBE PO PRN (21:46)
[2024-03-30] MEDS ORDERED: GLUCAGON FOR INJ 1 MG VIAL SQ PRN (21:46)
[2024-03-30] MEDS ORDERED: GLUCOSE 10 TAB/TUBE PO PRN (21:46)
[2024-03-30 22:02] LABS: Adenovirus PCR Not Detected (NotDetected); Bordetella parapertussis PCR Not Detected (NotDetected); Bordetella pertussis PCR Not Detected (NotDetected); Chlamydia pneumoniae PCR Not Detected (NotDetected); Coronavirus 229E PCR Not Detected (NotDetected); Coronavirus CoV-2 (COVID19)PCR Not Detected (NotDetected); Coronavirus HKU1 PCR Not Detected (NotDetected); Coronavirus NL63 PCR Not Detected (NotDetected); Coronavirus OC43PCR Not Detected (NotDetected); Human Metapneumovirus PCR Not Detected (NotDetected); Influenza A PCR Not Detected (NotDetected); Influenza B PCR Not Detected (NotDetected); Mycoplasma pneumoniae PCR Not Detected (NotDetected); Parainfluenza Virus 1 PCR Not Detected (NotDetected); Parainfluenza Virus 2 PCR Not Detected (NotDetected); Parainfluenza Virus 3 PCR Not Detected (NotDetected); Parainfluenza Virus 4 PCR Not Detected (NotDetected); Respiratory Syncytial VirusPCR Not Detected (NotDetected); Rhinovirus/Enterovirus PCR Not Detected (NotDetected)
[2024-03-30 22:14] LABS: Magnesium 3.4 mg/dl (1.7-2.4)
[2024-03-30] MEDS: POTASSIUM CHLORIDE PWD 20 MEQ PACK PO STA ×2 (22:40→23:35)
[2024-03-30] MEDS: LANTUS PER UNIT CHARGE SQ STA (22:44)
[2024-03-30] MEDS: INSULIN ASPART PER UNIT CHARGE SC SCH (22:44)
[2024-03-30] MEDS: ALBUMIN 25% 12.5 GM/50 ML VIAL IV STA (23:35)
[2024-03-30] MEDS: FUROSEMIDE 40 MG/4 ML VIAL IV STA (23:35)
[2024-03-31] MEDS: POTASSIUM CHLORIDE / WTR 10 MEQ/100 ML PLCT IV SCH (00:26)
--- NOTE | 2024-03-31 02:02 | History & Physical Report ---
Date of Service March 31, 2024 Assessment & Plan (1) CHF (congestive heart failure): Plan: Decompensated heart failure History of diastolic dysfunction ? Secondary to new onset A-fib ? Cardiorenal syndrome, progressive kidney dysfunction rule out obstructive ur opathy given history bilateral hydronephrosis Troponin elevation secondary to illness CAD status post CABG valvular heart disease (history of bioprosthetic AVR, mild MR) hypertension, slightly elevated hyperlipidemia, on statin Rx Marked hyperglycemia, DM2 on oral medications, suboptimal control as of recent hemoglobin A1c of 8.8 last November 2023 Hypokalemia secondary to Lokelma Rx prescribed by leather staker and glipizide chronic anemia, hemoglobin at baseline Admit to PCU Lasix albumin 1 dose for now Strict I/Os, daily weights, CHF education TTE Re: New onset A-fib IV heparin for thromboembolic prophylaxis Cardiology consult Re: decompensated heart failure, new onset A-fib Baseline UA, renal ultrasound, nephrology consult Re: Worsening kidney dysfunction Replace potassium, hold Lokelma for now, obtain outpatient [facility] records (Dr. Ford) Basal bolus insulin, ISS BG goal 1 10-1 40, carb count coverage, update hemoglobin A1c DVT prophylaxis. IV heparin DNR Patient daughter requesting updates providers. Ms. Jessica Ahumada, contact #[phone]. Text document was generated using [employer] voice recognition software. It may contain grammatical or spelling errors. Kindly contact undersigned for clarification of any documentation item in question. History of Present Illness Chief Complaint: Worsening shortness of breath Primary Care Provider: Brody Marin PA-C History obtained from patient, family, and records. Medical history significant for chronic diastolic heart failure (EF 55%, TTE 2023), CAD status post CABG, valvular heart disease (history of bioprosthetic AVR, mild MR), hypertension, hyperlipidemia, CRI (baseline creatinine 1.6), history of bilateral hydronephrosis as per records, chronic anemia (baseline hemoglobin 8-9), DM2 on oral medications. Last confinement November 2023 for CHF and bilateral hydronephrosis. Hyperkalemia and kidney dysfunction also noted during confinement. Patient discharged home with Kent catheter. Kent catheter shortly removed on outpatient urology visit. Patient noted to have increased leg swelling the last week as per family. Compliant with home medications. Denies OTC NSAID intake. Increasing shortness of breath noted yesterday without cough or chest pain symptoms. Patient brought to ER for evaluation. Patient noted to be in A-fib upon arrival at the ER. BSG 300s at the ER. IV Lasix administered at the ER. Medical History as above Surgical History : CABG, BTL, bioprosthetic AVR Family History : Heart disease, DM Personal/Social history : Non-smoker, no EtOH intake, retired [employer] Allergies Allergy/AdvReac Type Severity Reaction Status Date / Time No Known Allergies Allergy Unverified 10/12/13 18:28 Home Medications Medication Instructions Recorded Confirmed Type amlodipine 2.5 mg tablet 2.5 mg PO PM 11/03/23 03/30/24 History aspirin 81 mg tablet,delayed 81 mg PO QAM 11/03/23 03/30/24 History release atorvastatin 10 mg tablet 10 mg PO HS 11/03/23 03/30/24 History calcium carbonate 600 mg-vitamin 1 cap PO QAM 11/03/23 03/30/24 History D3 5 mcg (200 unit) capsule (Calcium 600 + D(3)) furosemide 20 mg tablet 20 mg PO DAILY PRN Edema 11/03/23 03/30/24 History gabapentin 300 mg capsule 300 mg PO HS 11/03/23 03/30/24 History gabapentin 300 mg capsule 300 mg PO QDL PRN Pain 11/03/23 03/30/24 History glipizide 10 mg tablet 20 mg PO QAM 11/03/23 03/30/24 History metoprolol succinate 25 mg 25 mg PO QAM 11/03/23 03/30/24 History tablet,extended release 24 hr vitamin with calcium 1 tab PO MOWEFR 11/03/23 03/30/24 History no.72-iron 27 mg-folic acid 1 mg tablet (M- Plus) acetaminophen 325 mg tablet 325 - 650 mg PO Q6 PRN Fever Or 03/30/24 03/30/24 History (Tylenol) Pain sitagliptin phosphate 50 mg tablet 50 mg PO QAM 03/30/24 03/30/24 History (Januvia) sodium zirconium cyclosilicate 10 10 g PO UD 03/30/24 03/30/24 History gram oral powder packet (Lokelma) Past Med/Surg History Problem List (Updated 03/31/24 @ 01:44 by Maninder Gtz MD) Lab test negative for COVID-19 virus (Acute) Hypokalemia (Acute) Acute renal failure (Acute) CHF (congestive heart failure) (Acute) Bilateral lower extremity edema (Acute) SOB (shortness of breath) (Acute) Urinary incontinence Vulvar irritation HTN, goal below 150/[address] of the abdomen Dyslipidemia Hyperkalemia Labia irritation CAD (coronary artery disease) Diabetes mellitus, type II CKD (chronic kidney disease), stage III Diastolic dysfunction Acute heart failure with preserved ejection fraction (HFpEF) TRACIE (acute kidney injury) (Acute) Dependent edema (Acute) Bilateral hydronephrosis (Acute) UTI (urinary tract infection) (Acute) Elevated troponin (Acute) Dyspnea (Acute 10/12/13) Aortic stenosis (Acute 10/16/13) Hypertension (Chronic) Diabetes (Chronic) Surgical History History of coronary artery bypass graft History of aortic valve replacement Family History Other Diabetes Heart disease Social History Smoking Status: Never smoker Second Hand Exposure: No; Do You Dip or Chew Tobacco: No; Tobacco Cessation Education Requested by Patient: No Hx Alcohol Use: No Hx Substance Use: No Preferred Language: [place] Communication Ability: Effective Vice President Payer Required: No Beliefs That Will Affect Care: None Current Living Situation: Family Current Living Situation Comment: pt daughter Nadia lives with her. Feels Safe at Home: Yes Safety Concerns: Feels Safe At This Time Assistive Devices: Denture - Upper, Glasses and Walker Review of Systems Review of Systems: As per HPI, all other systems reviewed and negative Physical Exam Physical Exam: GENERAL: Comfortable, pleasant, slightly anxious, no respiratory distress SKIN: Pallor, warm HEENT: Bespectacled, pale palpebral conjunctivae, no ptosis, dry buccal mucosa NECK : Supple, no tenderness CHEST : Decreased breath sounds, no tenderness HEART : Irregular, systolic murmur ABDOMEN: Some distention, nontender EXTREMITIES : Bilateral LE swelling (right greater than left), without tenderness, no other conspicuous deformities noted NEUROLOGIC : Coherent, no facial asymmetry, no other gross focality Results & Data Results & Data Vital Signs (Past 12 Hours) Vital Signs Temp Pulse Resp BP Pulse Ox O2 Del Method 03/31/24 00:46 62 03/30/24 22:00 63 16 143/55 H 92 Room Air 03/30/24 21:30 57 L 18 152/72 H 93 Room Air 03/30/24 21:06 71 18 136/65 90 Room Air 03/30/24 20:33 55 L 14 141/55 H 94 Room Air 03/30/24 19:52 66 03/30/24 19:45 62 20 154/72 H 93 Room Air 03/30/24 19:39 94 Room Air 03/30/24 19:39 36.4 C 63 20 154/72 H 94 Room Air 03/30/24 19:39 Room Air Laboratory Results Laboratory Results WBC 8.96 K/ul (4.8-10.8) 03/30/24 19:49 RBC 3.41 M/uL (4.20-5.40) L 03/30/24 19:49 Hgb 9.0 g/dl (12.0-16.0) L 03/30/24 19:49 Hct 28.2 % (37.0-47.0) L 03/30/24 19:49 MCV 82.7 fL (80.0-100.0) 03/30/24 19:49 MCH 26.4 pg (25.0-34.0) 03/30/24 19:49 MCHC 31.9 g/dL (32.0-36.0) L 03/30/24 19:49 RDW Std Deviation 46.1 fL (36.4-46.3) 03/30/24 19:49 RDW Coeff of Siomara 15.2 % (11.5-14.5) H 03/30/24 19:49 Plt Count 257 K/uL (130-400) 03/30/24 19:49 MPV 8.8 fL (9.4-12.4) L 03/30/24 19:49 Immature Gran % (Auto) 0.4 % 03/30/24 19:49 Neut % (Auto) 73.4 % 03/30/24 19:49 Lymph % (Auto) 16.6 % 03/30/24 19:49 [place] % (Auto) 7.1 % 03/30/24 19:49 Eos % (Auto) 2.1 % 03/30/24 19:49 Baso % (Auto) 0.4 % 03/30/24 19:49 Neut # (Auto) 6.56 K/uL (1.40-6.50) H 03/30/24 19:49 Lymph # (Auto) 1.49 K/uL (1.20-3.40) 03/30/24 19:49 [place] # (Auto) 0.64 K/uL (0.11-0.59) H 03/30/24 19:49 Eos # (Auto) 0.19 K/uL (0.00-0.50) 03/30/24 19:49 Baso # (Auto) 0.04 K/uL (0.00-0.20) 03/30/24 19:49 Immature Gran # (Auto) 0.04 K/uL (0.01-0.20) 03/30/24 19:49 PT 10.6 Seconds (9.0-12.0) 03/30/24 19:49 INR 1.0 (0.9-1.1) 03/30/24 19:49 APTT 30 Seconds (21-31) 03/30/24 19:49 PTT Ratio 1.1 03/30/24 19:49 Sodium 132 mmol/L (136-145) L 03/30/24 19:49 Potassium 2.7 mmol/L (3.5-5.1) L 03/30/24 19:49 Chloride 98 mmol/L (98-107) 03/30/24 19:49 Carbon Dioxide 24 mmol/L (21-32) 03/30/24 19:49 Anion Gap 10 (3-11) 03/30/24 19:49 BUN 67 mg/dl (6-23) H 03/30/24 19:49 Creatinine 3.57 mg/dl (0.6-1.2) H 03/30/24 19:49 Est Cr Clr Drug Dosing 10.6 ml/min 03/30/24 19:49 Est GFR ( Amer) 12.5 ml/min 03/30/24 19:49 Est GFR (Non-Af Amer) 10.8 ml/min 03/30/24 19:49 BUN/Creatinine Ratio 18.8 (10-20) 03/30/24 19:49 Glucose 310 mg/dl (70-99(Fasting)) H* 03/30/24 19:49 POC Glucose 314 mg/dl (70-99) H* 03/30/24 22:39 Calcium 8.4 mg/dl (8.6-10.3) L 03/30/24 19:49 Magnesium 3.4 mg/dl (1.7-2.4) H 03/30/24 19:49 Total Bilirubin 0.3 mg/dl (0.2-1.0) 03/30/24 19:49 AST 10 U/L (13-39) L 03/30/24 19:49 ALT 7 U/L (7-52) 03/30/24 19:49 Alkaline Phosphatase 65 U/L (34-104) 03/30/24 19:49 Troponin I High Sens 18.3 pg/ml (0-14) H 03/30/24 22:43 B-Natriuretic Peptide 1385 pg/ml (0-100) H 03/30/24 19:49 Total Protein 6.7 gm/dl (6.0-8.3) 03/30/24 19:49 Albumin 2.8 gm/dl (3.4-5.0) L 03/30/24 19:49 Globulin 3.9 gm/dl (2.5-4.0) 03/30/24 19:49 Albumin/Globulin Ratio 0.7 (0.9-2) L 03/30/24 19:49 Lipase 44 U/L (11-82) 03/30/24 19:49 Adenovirus (PCR) Not Detected (NotDetected) 03/30/24 21:00 B. pertussis DNA (PCR) Not Detected (NotDetected) 03/30/24 21:00 B.parapertussis DNA PCR Not Detected (NotDetected) 03/30/24 21:00 C. pneumoniae DNA (PCR) Not Detected (NotDetected) 03/30/24 21:00 Coronavirus OC43 (PCR) Not Detected (NotDetected) 03/30/24 21:00 Coronavirus HKU1 (PCR) Not Detected (NotDetected) 03/30/24 21:00 Coronavirus 229E (PCR) Not Detected (NotDetected) 03/30/24 21:00 SARS-CoV-2 (PCR) Not Detected (NotDetected) 03/30/24 21:00 Coronavirus NL63 (PCR) Not Detected (NotDetected) 03/30/24 21:00 Human Metapneumovir PCR Not Detected (NotDetected) 03/30/24 21:00 Influenza Type A (PCR) Not Detected (NotDetected) 03/30/24 21:00 Influenza Type B (PCR) Not Detected (NotDetected) 03/30/24 21:00 M. pneumoniae (PCR) Not Detected (NotDetected) 03/30/24 21:00 Parainfluenza 1 (PCR) Not Detected (NotDetected) 03/30/24 21:00 Parainfluenza 2 (PCR) Not Detected (NotDetected) 03/30/24 21:00 Parainfluenza 3 (PCR) Not Detected (NotDetected) 03/30/24 21:00 Parainfluenza 4 (PCR) Not Detected (NotDetected) 03/30/24 21:00 RSV (PCR) Not Detected (NotDetected) 03/30/24 21:00 Entero/Rhino (PCR) Not Detected (NotDetected) 03/30/24 21:00 Diagnostic Findings Chest x-ray as per my interpretation cardiomegaly, congestion, atelectasis EKG as per my interpretation : Rate 60, A-fib, normal axis, LBBB (1) CHF (congestive heart failure) Heart failure chronicity: acute on chronic Heart failure type: unspecified Qualified Code(s): I50.9 - Heart failure, unspecified
[2024-03-31] MEDS ORDERED: Heparin IV Adult Wt-Based Standard *NO* INITIAL Bolus Protocol IV STA (02:24)
[2024-03-31] MEDS: HEPARIN SODIUM/DEXTROSE 25,000 UNITS/500 ML BAG IV SCH (03:19)
[2024-03-31 04:05] LABS: BUN Creatinine Ratio 18.4 (10-20); Calcium 8.1 mg/dl (8.6-10.3); Creatinine Clr Calc Pharmacy 10.6 ml/min; Est GFR (African American) 12.4 ml/min; Est GFR (Non-African American) 10.7 ml/min; Magnesium 3.3 mg/dl (1.7-2.4); Potassium 4.4 mmol/L (3.5-5.1)
[2024-03-31 04:20] LABS: Troponin I High Sensitivity 15.9 pg/ml (0-14)
[2024-03-31 04:31] LABS: Partial Thromboplastin Time 28 Seconds (21-31)
[2024-03-31 04:32] LABS: Basophils # (auto) 0.04 K/uL (0.00-0.20); Basophils % (auto) 0.4 %; Eosinophils # (auto) 0.23 K/uL (0.00-0.50); Eosinophils % (auto) 2.5 %; Hematocrit (blood only) 27.7 % (37.0-47.0); Hemoglobin 8.9 g/dl (12.0-16.0); Immature Granulocytes # (auto) 0.04 K/uL (0.01-0.20); Immature Granulocytes % (auto) 0.4 %; Lymphocytes # (auto) 1.14 K/uL (1.20-3.40); Lymphocytes % (auto) 12.3 %; Mean Corpuscular Hemoglobin 26.4 pg (25.0-34.0); Mean Corpuscular Hgb Conc 32.1 g/dL (32.0-36.0); Mean Corpuscular Volume 82.2 fL (80.0-100.0); Mean Platelet Volume 8.4 fL (9.4-12.4); Monocytes # (auto) 0.66 K/uL (0.11-0.59); Monocytes % (auto) 7.1 %; Neutrophils # (auto) 7.18 K/uL (1.40-6.50); Neutrophils % (auto) 77.3 %; Platelet Count 245 K/uL (130-400); RDW Coefficient of Variation 15.4 % (11.5-14.5); Red Blood Count 3.37 M/uL (4.20-5.40); White Blood Count 9.29 K/ul (4.8-10.8)
[2024-03-31] MEDS: LANTUS PER UNIT CHARGE SQ SCH (08:07)
[2024-03-31] MEDS: METOPROLOL SUCC 25MG EXT REL TAB PO SCH (08:08)
[2024-03-31] MEDS: ACETAMINOPHEN 325 MG TAB PO PRN (08:08)
[2024-03-31] MEDS: ASPIRIN 81 MG ECTAB PO SCH (08:08)
--- NOTE | 2024-03-31 08:17 | XRay Report ---
XR chest 1V portable HISTORY: 88 years-old Female Chest pain, nonspecific COMPARISON: 11/03/2023 TECHNIQUE: AP view of the chest FINDINGS: Cardiac silhouette is enlarged. Median sternotomy. Pulmonary vascular congestion with interstitial co arsening. Layering pleural effusions with bibasilar consolidation. No pneumothorax. Bones appear elvin sly intact. IMPRESSION: 1. Cardiomegaly with pulmonary edema. 2. Layering pleural effusions with bibasilar consolidation. ACT 112: Negative or not required by law. The above report was generated using voice recognition software. It may contain grammatical, syntax o r spelling errors. Electronically signed by: Gerry Rg M.D. 03/31/2024 8:15 AM
--- NOTE | 2024-03-31 08:26 | Cardiology Consultation ---
Date of Consultation March 31, 2024 Assessment & Plan (1) Acute renal failure: (2) Hypokalemia: (3) Acute heart failure with preserved ejection fraction (HFpEF): (4) History of aortic valve replacement: Plan Patient admitted after several days of weakness and SOB. Found to have ARF with creatinine of 3.6 and hypokalemia with potassium of 2.7. She has evidence of volume overload on exam as well, consistent with acute on chronic HFpEF. Treated with IV lasix in the ER. Renal function remains stable (creatinine of 3.6 this morning) Small b/l pleural effusions noted on chest xray. Currently patient is resting comfortably in bed without orthopnea, SOB or hypoxia. Will hold off on further diuretics until evaluation by nephrology. She does have edema but reports this has been a chronic issue. Nephrology consulted. Appreciate advise. hold ARB. Potassium improved this morning. In regards to questionable atrial fibrillation. Per my review, initial EKG appers to be possibly sinus wiht PAC's (low voltage P wave and long first degree AV block). Per review of telemetry, no definitively atrial fibrillation noted. She has frequent PAC's. Her HR has remained stable during admission in the 50-60's. I'm not certain she needs IV heparin if no definitive atrial fibrillation but will await further evaluation/discussion with attending senior bookkeeper. Continue metoprolol succinate 25 mg daily Continue ASA and statin Continue amlodipine for hypertension Case discussed with Dr. Daugherty I spent a total of 60 minutes on the date of service in preparation, delivery, and documentation of the care provided to this patient, excluding any time spent in the performance of separately billed services. Aurea Corado PA-C Department of Cardiology, [facility] This chart was completed in part utilizing Speech Voice Recognition Software. Grammatical errors, random word insertions, pronoun errors, and incomplete sentences are an occasional consequence of this system due to software limitations, ambient noise, and hardware issues. Any formal questions or concern s about the content, text, or information contained within the body of this dictation should be directly addressed to the provider for clarification. Supervising Physician Co-Signing Physician Notes I have reviewed the advanced practitioner's documentation on the date of service referenced in note, and I agree with, and take responsibility for the plan of care. 88-year-old with known history of heart failure with preserved ejection fraction prior aortic valve replacement presents with hypokalemia and acute renal failure concern for atrial fibrillation on EKG present EKG reviewed has a sinus rhythm PACs present no evidence of A-fib Not need anticoagulation at this time Volume overloaded diuretics are being managed by nephrology Please call with questions we will sign off I spent a total of [20] minutes coordinating, documenting, and providing care for this patient excluding time spent in the performance of separately billed services or time spent by another provider. History of Present Illness Reason for Consultation: SOB; CHF Requesting Physician: Dr. Hercules Attending Physician: Dr. Daugherty History of Present Illness Patient is an 88 year old Female known to [facility] cardiology, Dr. Epps. Admitted to [facility] with several days of worsening shortness of breath and weakness . History includes: 1. Status post cardiac surgery December 2013 for severe calcific aortic disease and diffuse coronary atherosclerosis, receiving a 23 mm Tamayo bioprosthesis and coronary bypass grafting with a GARCIA graft to LAD, saphenous vein graft to the right coronary artery and saphenous vein graft to the obtuse marginal. 2. Mixed cardiomyopathy with congestive heart failure at initial presentation with return to near normal LV function post recovery. EF 50% echocardiogram 10/29/2015, stable per November 2023 3. intraventricular conduction delay/LBBB pattern 4. History of iron-deficiency anemia. 5. Hypertension. 6. Bilateral carotid artery disease 7. Chronic renal insufficiency class 3 8. Labile hypertension Upon admission, EKG demonstrated a slightly irregular rhythm. Possible afib, vs sinus with PAC's. She was started on IV heparin for stroke prophylaxis. She was treated with IV lasix x1 dose. Labs demonstrated TRACIE with creatinine of 3.6. Nephrology consulted. Potassium significantly low initially at 2.7. Now improved. Glucose also > 300 on arrival. Chest xray with mild pulm edema and small b/l pleural effusions. Currently, patient resting in bed, feeling better since admission. Oxygen saturations good on room air. She had minimal elevation in her HS troponin ranging 17 -18-15.9, and flat. No acute ischemic changes on EKG. Chronic LBBB pattern noted. She has reported increased edema over the last few weeks. Does not weigh herself daily. Allergies Allergy/AdvReac Type Severity Reaction Status Date / Time No Known Allergies Allergy Unverified 10/12/13 18:28 Home Medications Medication Instructions Recorded Confirmed Type amlodipine 2.5 mg tablet 2.5 mg PO PM 11/03/23 03/30/24 History aspirin 81 mg tablet,delayed 81 mg PO QAM 11/03/23 03/30/24 History release atorvastatin 10 mg tablet 10 mg PO HS 11/03/23 03/30/24 History calcium carbonate 600 mg-vitamin 1 cap PO QAM 11/03/23 03/30/24 History D3 5 mcg (200 unit) capsule (Calcium 600 + D(3)) furosemide 20 mg tablet 20 mg PO DAILY PRN Edema 11/03/23 03/30/24 History gabapentin 300 mg capsule 300 mg PO HS 11/03/23 03/30/24 History gabapentin 300 mg capsule 300 mg PO QDL PRN Pain 11/03/23 03/30/24 History glipizide 10 mg tablet 20 mg PO QAM 11/03/23 03/30/24 History metoprolol succinate 25 mg 25 mg PO QAM 11/03/23 03/30/24 History tablet,extended release 24 hr vitamin with calcium 1 tab PO MOWEFR 11/03/23 03/30/24 History no.72-iron 27 mg-folic acid 1 mg tablet (M- Plus) acetaminophen 325 mg tablet 325 - 650 mg PO Q6 PRN Fever Or 03/30/24 03/30/24 History (Tylenol) Pain sitagliptin phosphate 50 mg tablet 50 mg PO QAM 03/30/24 03/30/24 History (Januvia) sodium zirconium cyclosilicate 10 10 g PO UD 03/30/24 03/30/24 History gram oral powder packet (Lokelma) Patient History Surgical History History of coronary artery bypass graft History of aortic valve replacement Family History Other Diabetes Heart disease Social History Smoking Status: Never smoker Second Hand Exposure: No; Do You Dip or Chew Tobacco: No; Tobacco Cessation Education Requested by Patient: No Hx Alcohol Use: No Hx Substance Use: No Preferred Language: Lithuanian Communication Ability: Effective Inventory Checker Required: No Beliefs That Will Affect Care: None Current Living Situation: Family Current Living Situation Comment: pt daughter Nadia lives with her. Feels Safe at Home: Yes Safety Concerns: Feels Safe At This Time Assistive Devices: Denture - Upper, Glasses and Walker Review of Systems Review of Systems: All systems reviewed & are unremarkable except as noted in HPI & below Physical Exam Constitutional: WD/WN, vitals as above well developed; no acute distress Neck: trachea midline, no thyromegaly Respiratory: no labored breathing Auscultation: + diminished lung sounds (bases b/l); no crackles and no rales Cardiovascular: Rate/Rhythm: regular rate and regular rhythm Heart Sounds: + murmur (II/ systolic murmur LSB) Results & Data Vital Signs (Past 12 Hours) Vital Signs Temp Pulse Pulse Resp BP BP Pulse Ox 03/31/24 05:53 03/31/24 05:52 67 03/31/24 05:30 36.7 C 67 20 125/85 92 03/31/24 05:28 36.7 C 66 22 125/85 94 03/31/24 04:06 65 26 H 141/59 H 91 03/31/24 03:03 62 25 H 132/55 L 93 03/31/24 01:30 64 23 141/64 H 95 03/31/24 00:46 62 03/31/24 00:03 64 25 H 137/56 L 94 03/30/24 23:00 66 20 147/69 H 92 03/30/24 22:00 63 16 143/55 H 92 03/30/24 21:30 57 L 18 152/72 H 93 03/30/24 21:06 71 18 136/65 90 03/30/24 20:33 55 L 14 141/55 H 94 O2 Del Method 03/31/24 05:53 Room Air 03/31/24 05:52 03/31/24 05:30 Room Air 03/31/24 05:28 Room Air 03/31/24 04:06 03/31/24 03:03 03/31/24 01:30 03/31/24 00:46 03/31/24 00:03 03/30/24 23:00 03/30/24 22:00 Room Air 03/30/24 21:30 Room Air 03/30/24 21:06 Room Air 03/30/24 20:33 Room Air Laboratory Results Cardiac Enzymes 03/30/24 03/30/24 03/31/24 Range/Units 19:49 22:43 03:15 AST 10 L (13-39) U/L Troponin I High Sens 17.1 H 18.3 H 15.9 H (0-14) pg/ml B-Natriuretic Peptide 1385 H (0-100) pg/ml Coagulation 03/30/24 03/31/24 Range/Units 19:49 03:15 PT 10.6 (9.0-12.0) Seconds APTT 30 28 (21-31) Seconds B-Natriuretic Peptide 1385 H (0-100) pg/ml CBC 03/30/24 03/31/24 Range/Units 19:49 04:00 WBC 8.96 9.29 (4.8-10.8) K/ul RBC 3.41 L 3.37 L (4.20-5.40) M/uL Hgb 9.0 L 8.9 L (12.0-16.0) g/dl Hct 28.2 L 27.7 L (37.0-47.0) % Plt Count 257 245 (130-400) K/uL Neut # (Auto) 6.56 H 7.18 H (1.40-6.50) K/uL Lymph # (Auto) 1.49 1.14 L (1.20-3.40) K/uL Prentiss # (Auto) 0.64 H 0.66 H (0.11-0.59) K/uL Eos # (Auto) 0.19 0.23 (0.00-0.50) K/uL Baso # (Auto) 0.04 0.04 (0.00-0.20) K/uL Comprehensive Metabolic Panel 03/30/24 03/31/24 Range/Units 19:49 03:15 Sodium 132 L 133 L (136-145) mmol/L Potassium 2.7 L 4.4 D (3.5-5.1) mmol/L Chloride 98 101 (98-107) mmol/L Carbon Dioxide 24 25 (21-32) mmol/L BUN 67 H 66 H (6-23) mg/dl Creatinine 3.57 H 3.59 H (0.6-1.2) mg/dl Glucose 310 H* 180 H (70-99(Fasting)) mg/dl Calcium 8.4 L 8.1 L (8.6-10.3) mg/dl AST 10 L (13-39) U/L ALT 7 (7-52) U/L Alkaline Phosphatase 65 (34-104) U/L Total Protein 6.7 (6.0-8.3) gm/dl Albumin 2.8 L (3.4-5.0) gm/dl Intake and Output 03/30/24 03/31/24 03/31/24 22:59 06:59 14:59 Intake Total 250 / 250 326.167 / 326.167 Balance 250 / 250 326.167 / 326.167 Intake: IV 250 / 250 86.167 / 86.167 Albumin 25% 12.5 gm In 50 ml @ 50 / 50 50 mls/hr IV [facility] Rx#: [id number] Heparin Sodium/Dextrose 25,000 86.167 / 86.167 units In 500 ml @ 1,100 UNITS/ HR 22 mls/hr IV .[id number] [facility] Rx #:[id number] Potassium Chloride / Wtr 10 meq 200 / 200 In 100 ml @ 100 mls/hr IV Q1H [facility] Rx#:[id number] Oral 240 / 240 Other: Weight 72.4 kg 66.8 kg Weight Measurement Method Built in [facility] Diagnostic Findings Telemetry reviewed: Currently NSR with PAC's. Per review of trend, HR's have been well controlled. No definitive atrial fibrillation noted, but difficult to decipher P waves at times EKG reviewed on arrival: Probable NSR with low voltage P waves and long 1st degree AV block LBBB No significant change from previous LBBB/conduction delay has been present in outpatient EKG's for years. Repeat EKG this morning: NSR, LBBB Chest xray: IMPRESSION: 1. Cardiomegaly with pulmonary edema. 2. Layering pleural effusions with bibasilar consolidation. Echocardiogram results pending Medications Administered Current Inpatient Medications Acetaminophen (Acetaminophen 325 Mg Tab) 650 mg PO QID PRN PRN Reason: pain/fever Stop: 04/30/24 02:26 Last Admin: 03/31/24 08:08 Dose: 650 mg Amlodipine Besylate (Amlodipine Besylate 5 Mg Tab) 2.5 mg PO PM MINOO Stop: 04/30/24 20:59 Aspirin (Aspirin 81 Mg Ectab) 81 mg PO QAM [facility] Stop: 04/30/24 08:59 Last Admin: 03/31/24 08:08 Dose: 81 mg Atorvastatin Calcium (Atorvastatin 10 Mg Tab) 10 mg PO HS [facility] Stop: 04/30/24 20:59 Dextrose (Dextrose 50% 50 Ml Syringe) 25 - 50 ml IV UD PRN; Protocol PRN Reason: Hypoglycemia Protocol Stop: 04/29/24 21:45 Furosemide (Furosemide 40 Mg/4 Ml Vial) 100 mg IV BID [facility] Stop: 04/30/24 11:44 Gabapentin (Gabapentin 100 Mg Cap) 200 mg PO HS [facility] Stop: 04/30/24 20:59 Glucagon (Glucagon For Inj 1 Mg Vial) 1 mg SQ UD PRN; Protocol PRN Reason: Hypoglycemia Protocol Stop: 04/29/24 21:45 Glucose (Glucose 40% Gel 15 Gm Tube) 15 - 30 gm PO UD PRN; Protocol PRN Reason: Hypoglycemia Protocol Stop: 04/29/24 21:45 Glucose (Glucose 10 Tab/Tube) 4 - 8 tab PO UD PRN; Protocol PRN Reason: Hypoglycemia Treatment Stop: 04/29/24 21:45 Heparin Sodium/Dextrose (Heparin Sodium/Dextrose) 25,000 units in 500 mls @ 22 mls/hr IV .[id number] [facility]; Protocol Stop: 04/30/24 02:44 Last Titration: 03/31/24 07:14 Dose: 1,100 units/hr, 22 mls/hr Promethazine HCl 6.25 mg/ (Sodium Chloride) 50.25 mls @ 201 mls/hr IV Q6H PRN PRN Reason: Nausea And Vomiting Stop: 04/30/24 02:26 Last Admin: 03/31/24 11:43 Dose: 201 mls/hr Insulin Aspart (Insulin Aspart Per Unit Charge) 0 units SC ACHS [facility] Stop: 04/29/24 21:49 Last Admin: 03/31/24 11:40 Dose: 4 units Insulin Glargine (Lantus Per Unit Charge) 5 units SQ DAILY [facility] Stop: 04/30/24 08:59 Last Admin: 03/31/24 08:07 Dose: 5 units Metoprolol Succinate (Metoprolol Succ 25mg Ext Rel Tab) 25 mg PO QAM [facility] Stop: 04/30/24 08:59 Last Admin: 07/28/24 08:08 Dose: 25 mg Miscellaneous (Carbohydrates For Hypoglycemia ) 15 - 30 gm PO UD PRN PRN Reason: Hypoglycemia Protocol Stop: 04/29/24 21:45 Prenat Multivit/[place]/Iron/Folic Ac ( Vitamin 1 Tab) 1 tab PO MOWEFR MINOO Stop: 05/01/24 08:59 Tramadol HCl (Tramadol Hcl 50 Mg Tablet) 25 mg PO Q4H PRN PRN Reason: Pain Stop: 04/30/24 02:26 Last Admin: 03/31/24 11:41 Dose: 25 mg (1) Acute renal failure Acute renal failure type: unspecified Qualified Code(s): N17.9 - Acute kidney failure, unspecified
[2024-03-31 10:09] LABS: Estimated Average Glucose 206 mg/dl; Hemoglobin A1C 8.8 % (4.5-5.6)
[2024-03-31 10:15] LABS: ANTI-Xa, UFH(UnfractionatedHep 0.28 IU/ml (0.3-0.7)
[2024-03-31] MEDS: traMADol HCL 50 MG TABLET PO PRN (11:41)
[2024-03-31] MEDS: PROMETHAZINE HCL 6.25 MG in SODIUM CHLORIDE 0.9% 50 ML IV PRN (11:43)
--- NOTE | 2024-03-31 11:43 | Nephrology Consultation ---
Date of Consultation March 31, 2024 Assessment & Plan (1) Acute renal failure: Patient with the acute renal failure on CKD. Creatinine of 3.6 from a baseline of mid twos. Etiology is likely cardiorenal syndrome. Patient is an uric. She had hypokalemia likely due to outpatient use of Lokelma. I discussed dialysis modalities with the patient. I also discussed the option of conservative management. It might be a challenge for patient to do in center hemodialysis due to chronic hip pain and back pain. I think she will be a good candidate for PD. Patient would like to think about it and discussed with the daughter who will be the main support partner. For now we will continue to monitor renal function with daily BMP, monitor input output and avoid nephrotoxins such as contrast. Renally dose antibiotics and other medications for current GFR (2) CHF (congestive heart failure): Patient with CHF acute on chronic. Acute trigger was likely A-fib with RVR. Patient has now converted to sinus rhythm. Chest x-ray showed cardiomegaly and pulmonary edema. Patient is currently anuric. Will try IV Lasix 100 mg twice daily and monitor. History of Present Illness Reason for Consultation: ARF Requesting Physician: Amol King MD Attending Physician: Amol King MD History of Present Illness Patient is 88-year-old female with PMH aortic stenosis s/p bioprosthetic valve replacement in 2013, CAD s/p CABG in 2013, diastolic dysfunction, DM II, HTN, HLD, bilateral carotid artery disease, CKD III-IV Baseline creatinine in the mid twos was admitted with shortness of breath. She was found to have A-fib with RVR and acute renal failure with creatinine of 3.6. Patient is anuric. She is on heparin drip and also received rate control agents. She is now converted to sinus rhythm. She reports improvement in her breathing. Chest x-ray showed cardiomegaly and pulmonary edema. She has leg swelling. She complains of back pain and right hip pain which is chronic. Patient lives with the daughter near [place]. Allergies Allergy/AdvReac Type Severity Reaction Status Date / Time No Known Allergies Allergy Unverified 10/12/13 18:28 Home Medications Medication Instructions Recorded Confirmed Type amlodipine 2.5 mg tablet 2.5 mg PO PM 11/03/23 03/30/24 History aspirin 81 mg tablet,delayed 81 mg PO QAM 11/03/23 03/30/24 History release atorvastatin 10 mg tablet 10 mg PO HS 11/03/23 03/30/24 History calcium carbonate 600 mg-vitamin 1 cap PO QAM 11/03/23 03/30/24 History D3 5 mcg (200 unit) capsule (Calcium 600 + D(3)) furosemide 20 mg tablet 20 mg PO DAILY PRN Edema 11/03/23 03/30/24 History gabapentin 300 mg capsule 300 mg PO HS 11/03/23 03/30/24 History gabapentin 300 mg capsule 300 mg PO QDL PRN Pain 11/03/23 03/30/24 History glipizide 10 mg tablet 20 mg PO QAM 11/03/23 03/30/24 History metoprolol succinate 25 mg 25 mg PO QAM 11/03/23 03/30/24 History tablet,extended release 24 hr vitamin with calcium 1 tab PO MOWEFR 11/03/23 03/30/24 History no.72-iron 27 mg-folic acid 1 mg tablet (M-Kevin Plus) acetaminophen 325 mg tablet 325 - 650 mg PO Q6 PRN Fever Or 03/30/24 03/30/24 History (Tylenol) Pain sitagliptin phosphate 50 mg tablet 50 mg PO QAM 03/30/24 03/30/24 History (Januvia) sodium zirconium cyclosilicate 10 10 g PO UD 03/30/24 03/30/24 History gram oral powder packet (Lokelma) Patient History Surgical History History of coronary artery bypass graft History of aortic valve replacement Family History Other Diabetes Heart disease Social History Smoking Status: Never smoker Second Hand Exposure: No; Do You Dip or Chew Tobacco: No; Tobacco Cessation Education Requested by Patient: No Hx Alcohol Use: No Hx Substance Use: No Preferred Language: Yoruba Communication Ability: Effective Carpenter Railcar Required: No Beliefs That Will Affect Care: None Current Living Situation: Family Current Living Situation Comment: pt daughter Nadia lives with her. Feels Safe at Home: Yes Safety Concerns: Feels Safe At This Time Assistive Devices: Denture - Upper, Glasses and Walker Review of Systems 2 Review of Systems: All other systems were reviewed and negative except as noted in HPI Physical Exam 2 Physical Exam: General exam: Appears comfortable, no acute distress HEENT: Pupils are equal and reactive to light Neck: No JVD, neck is supple trachea is midline Respiratory system: Clear breath sounds bilaterally. Gastrointestinal: Abdomen is soft, non distended, non tender, bowel sounds are present CVS: Regular rate and rhythm. No murmurs, rubs or gallops Musculoskeletal: No joint or muscle tenderness Extremities: Non tender, 1+ edema, peripheral pulses are present Neuro: Oriented, no tremors, no focal neurological deficits Skin: No rashes Results & Data Vital Signs (Past 12 Hours) Vital Signs Temp Pulse Pulse Resp BP BP Pulse Ox 03/31/24 10:35 03/31/24 10:00 62 20 95 03/31/24 08:18 67 23 94 03/31/24 08:00 36.7 C 03/31/24 07:32 142/49 H 03/31/24 07:30 67 24 93 03/31/24 05:53 03/31/24 05:52 67 03/31/24 05:30 36.7 C 67 20 125/85 92 03/31/24 05:28 36.7 C 66 22 125/85 94 03/31/24 04:06 65 26 H 141/59 H 91 03/31/24 03:03 62 25 H 132/55 L 93 03/31/24 01:30 64 23 141/64 H 95 03/31/24 00:46 62 03/31/24 00:03 64 25 H 137/56 L 94 O2 Del Method 03/31/24 10:35 Room Air 03/31/24 10:00 03/31/24 08:18 03/31/24 08:00 03/31/24 07:32 03/31/24 07:30 03/31/24 05:53 Room Air 03/31/24 05:52 03/31/24 05:30 Room Air 03/31/24 05:28 Room Air 03/31/24 04:06 03/31/24 03:03 03/31/24 01:30 03/31/24 00:46 03/31/24 00:03 Laboratory Results 03/31/24 03:15 03/30/24 03/31/24 19:49 04:00 WBC 8.96 9.29 RBC 3.41 L 3.37 L MCV 82.7 82.2 MCH 26.4 26.4 MCHC 31.9 L 32.1 RDW Std Deviation 46.1 46.0 RDW Coeff of Siomara 15.2 H 15.4 H Plt Count 257 245 MPV 8.8 L 8.4 L Albumin 2.8 L (1) Acute renal failure Acute renal failure type: unspecified Qualified Code(s): N17.9 - Acute kidney failure, unspecified (2) CHF (congestive heart failure) Heart failure chronicity: acute on chronic Heart failure type: unspecified Qualified Code(s): I50.9 - Heart failure, unspecified
[2024-03-31] MEDS: FUROSEMIDE 40 MG/4 ML VIAL IV SCH (12:18)
[2024-03-31 12:28] LABS: Appearance Urine Cloudy (Clear); Bacteria Urine Automated 1+ (None Seen); Bilirubin Urine Negative (Negative); Blood Urine 2+ (Negative); Color Urine Yellow; Epithelial Cell Urine Auto 0-2 /hpf (0-2); Glucose Urine UA Negative (Negative); Ketones Urine Negative (Negative); Leukocyte Esterase Urine 3+ (Negative); Nitrite Urine Negative (Negative); Protein Urine 2+ (Negative); RBC Urine Automated >20 /hpf (0-2); Specific Gravity Urine 1.013 (1.000-1.030); Urobilinogen Urine Negative (Negative); WBC Urine Automated >50 /hpf (0-5); pH Urine 5.5 (4.5-7.5)
--- NOTE | 2024-03-31 15:27 | Hospitalist Progress Note ---
Date of Service March 31, 2024 Assessment & Plan (1) CHF (congestive heart failure): Plan: Decompensated heart failure History of diastolic dysfunction ? Secondary to new onset A-fib -- Lasix 100 mg IV twice daily ordered Heparin continued Nephrology service consulted Cardiology service also on board Acute renal failure --Renal ultrasound unrevealing Continue to monitor closely while on Lasix Troponin elevation secondary to illness -IV likely secondary to demand ischemia CAD status post CABG valvular heart disease (history of bioprosthetic AVR, mild MR) hypertension, slightly elevated hyperlipidemia, on statin Rx Marked hyperglycemia, DM2 on oral medications, suboptimal control as of recent hemoglobin A1c of 8.8 last November 2023 Hypokalemia secondary to Lokelma Rx prescribed by pit supervisor and glipizide chronic anemia, hemoglobin at baseline DVT prophylaxis. IV heparin DNR Admission and Anticipated Discharge Date Admission Date: March 31, 2024 Subjective Follow-up for acute CHF, atrial fibrillation, new onset, etc. Seen resting in bed, comfortable, not in distress States she feels better today compared to yesterday Denies shortness of breath, chest pain, palpitations, dizziness No other new symptoms Review of Systems Review of Systems: all noted and negative except for above Physical Exam Physical Exam: General- oriented x 3, not in distress, speaks in sentences with no effort or accessory muscle use Eyes- anicteric Neck- no JVD Lungs- clear breath sounds bilaterally, no rales/wheezes Heart- normal rate, regular rhythm; no murmurs Abdomen- normal bowel sounds, nondistended, soft, nontender Extremities- no pretibial edema, no calf tenderness Neuro- alert, oriented x 3; no gross focal neurologic deficits Skin- warm & dry Results & Data Results & Data Vital Signs (Past 12 Hours) Vital Signs Temp Pulse Pulse Resp BP BP Pulse Ox 03/31/24 15:01 36.8 C 03/31/24 14:43 136/48 L 03/31/24 14:42 62 14 95 03/31/24 14:00 61 21 96 03/31/24 12:10 36.6 C 03/31/24 12:00 60 14 96 03/31/24 11:15 126/47 L 03/31/24 10:35 03/31/24 10:00 62 20 95 03/31/24 08:18 67 23 94 03/31/24 08:00 36.7 C 07/28/24 07:32 142/49 H 03/31/24 07:30 67 24 93 03/31/24 05:53 03/31/24 05:52 67 03/31/24 05:30 36.7 C 67 20 125/85 92 03/31/24 05:28 36.7 C 66 22 125/85 94 03/31/24 04:06 65 26 H 141/59 H 91 O2 Del Method 03/31/24 15:01 03/31/24 14:43 03/31/24 14:42 03/31/24 14:00 03/31/24 12:10 03/31/24 12:00 03/31/24 11:15 03/31/24 10:35 Room Air 03/31/24 10:00 03/31/24 08:18 03/31/24 08:00 03/31/24 07:32 03/31/24 07:30 03/31/24 05:53 Room Air 03/31/24 05:52 03/31/24 05:30 Room Air 03/31/24 05:28 Room Air 03/31/24 04:06 all noted and reviewed including below (1) CHF (congestive heart failure) Heart failure chronicity: acute on chronic Heart failure type: unspecified Qualified Code(s): I50.9 - Heart failure, unspecified
[2024-03-31] MEDS: amLODIPine BESYLATE 5 MG TAB PO SCH (21:02)
[2024-03-31] MEDS: ATORVASTATIN 10 MG TAB PO SCH (21:02)
[2024-03-31] MEDS: GABAPENTIN 100 MG CAP PO SCH (21:03)
--- NOTE | 2024-03-31 21:08 | Electrocardiogram Report ---
Test Reason : Blood Pressure : / mmHG Vent. Rate : 062 BPM Atrial Rate : 000 BPM P-R Int : 000 ms QRS Dur : 148 ms QT Int : 512 ms P-R-T Axes : 000 038 198 degrees QTc Int : 519 ms Sinus rhythm with sinus arrhythmia and PACs Left bundle branch block Abnormal ECG When compared with ECG of 06-NOV-2023 06:12, Premature atrial complexes are now Present Confirmed by Karthik Herrera ([id number]) on 03/31/2024 9:08:03 PM Referred By: REFERRED SELF Confirmed By:Karthik Herrera
--- NOTE | 2024-03-31 21:37 | Electrocardiogram Report ---
Test Reason : Blood Pressure : / mmHG Vent. Rate : 062 BPM Atrial Rate : 062 BPM P-R Int : 176 ms QRS Dur : 134 ms QT Int : 532 ms P-R-T Axes : -06 004 145 degrees QTc Int : 539 ms Normal sinus rhythm Left bundle branch block Abnormal ECG When compared with ECG of 31-MAR-2024 09:53, Premature atrial complexes are no longer Present Confirmed by Karthik Herrera ([id number]) on 03/31/2024 9:36:56 PM Referred By: REFERRED SELF Confirmed By:Karthik Herrera
--- NOTE | 2024-04-01 07:04 | Ultrasound Report ---
RENAL ULTRASOUND HISTORY: Acute on chronic kidney disease. COMPARISON: Abdomen and pelvis CT 11/03/2023. FINDINGS: Right kidney: 11.6 cm. Severe hydronephrosis, unchanged. Marked cortical thinning again noted. Left kidney: 10.6 cm. Moderate hydronephrosis, unchanged. Mild cortical thinning. Bladder: Bladder wall thickening again noted. The ureteral jets were not identified. IMPRESSION: 1. No significant change in the severe right and moderate left hydronephrosis. 2. Persistent bladder wall thickening. ACT 112: Negative or not required by law. Electronically signed by: Willis Patel M.D. 04/01/2024 7:01 AM
[2024-04-01] MEDS: CARBOHYDRATES FOR HYPOGLYCEMIA PO PRN (08:03)
[2024-04-01] MEDS: PRENATAL VITAMIN 1 TAB PO SCH (08:54)
--- NOTE | 2024-04-01 09:15 | Nephrology Progress Note ---
Date of Service April 01, 2024 Assessment & Plan (1) Acute renal failure: Plan: Patient with nonoliguric stage 2 acute renal failure on CKD (based on anuria) attributed to cardiorenal syndrome. Creatinine of 3.6 on 03/31 presentation from a baseline of mid twos. Anuria has resolved w/ blanchard placement; hx of urinary retention at 11/2023 admission as well. She had hypokalemia likely due to outpatient use of Lokelma. -renal failure therapies including dialysis (possibly PD) and conservative mgt have been reviewed w/ pt; concern that in center HD might be a challenge due to chronic hip pain and back pain. Lives w/ her daughter who could be PD director critical care if needed, at least potentially. -continue to monitor renal function with daily BMP, monitor input output and avoid nephrotoxins such as contrast. Renally dose antibiotics and other medications for current GFR UA 2+ protein/blood; also w/ bacteria, LE, WBC >> f/u pending cx; no blood cxs collected >>recommend blood cx prior to starting abtx if started >f/u pending labs this am; no current need for emergent HD >>adjust lasix dosing based on labs (2) CHF (congestive heart failure): Plan: Patient with HF acute on chronic. Acute trigger was likely A-fib with RVR. Patient has now converted to sinus rhythm. admission hest x-ray showed cardiomegaly and pulmonary edema. anuria responded to IV Lasix 100 mg twice daily and monitor. Admission and Anticipated Discharge Date Admission Date: March 31, 2024 Subjective 1L UOP charted past 24 hrs; needed some 02 yesterday but off since late PM; sob much improved; feels edema a bit better too. ate breakfast this am w/o issues; ambulates w/ walker at baseline; doesnt mention hip/back pain today Review of Systems Review of Systems: All systems reviewed & are unremarkable except as noted in Subjective Physical Exam Constitutional: well developed, well nourished, + frail appearing (cannnot herman n forward in bed w/o asst) and cooperative; no acute distress Eyes: EOM intact bilaterally ENMT: Ears: no external ear abnormality Nose: no external nose abnormality Mouth: + dry oral mucous membranes Neck: no nuchal rigidity Respiratory: normal respiratory effort Auscultation: + diminished lung sounds, + crackles (late insp) and + wheezes (occasional insp) Cardiovascular: Rate/Rhythm: + irregularly irregular Extremities: + edema (trace dependent and pretib) Gastrointestinal (Abdomen): Inspection/Auscultation: normal bowel sounds Percussion/Palpation: abdomen soft; abdomen nontender Musculoskeletal: Extremities: strength 5/5 throughout Skin: no rashes, warm and dry Neurologic: reid, fluent speech, no tremor Psychiatric: Orientation: alert and oriented x 3 Speech: normal rate/rhythm /volume of speech Results & Data Vital Signs (Past 12 Hours) Vital Signs Temp Pulse Pulse Resp BP Pulse Ox O2 Del Method 04/01/24 07:45 Room Air 04/01/24 07:45 59 L 04/01/24 07:26 36.2 C L 69 18 115/64 96 Room Air 04/01/24 03:50 36.6 C 60 16 114/54 L 94 Room Air 04/01/24 00:00 63 03/31/24 23:48 36.8 C 60 14 128/46 L 94 Room Air Laboratory Results 04/01 labs pending (1) Acute renal failure Acute renal failure type: unspecified Qualified Code(s): N17.9 - Acute kidney failure, unspecified (2) CHF (congestive heart failure) Heart failure chronicity: acute on chronic Heart failure type: unspecified Qualified Code(s): I50.9 - Heart failure, unspecified
[2024-04-01 10:53] LABS: Basophils # (auto) 0.04 K/uL (0.00-0.20); Basophils % (auto) 0.4 %; Eosinophils # (auto) 0.06 K/uL (0.00-0.50); Eosinophils % (auto) 0.5 %; Hematocrit (blood only) 27.4 % (37.0-47.0); Hemoglobin 8.7 g/dl (12.0-16.0); Immature Granulocytes # (auto) 0.04 K/uL (0.01-0.20); Immature Granulocytes % (auto) 0.4 %; Lymphocytes % (auto) 8.9 %; Mean Corpuscular Hemoglobin 26.9 pg (25.0-34.0); Mean Corpuscular Hgb Conc 31.8 g/dL (32.0-36.0); Mean Corpuscular Volume 84.8 fL (80.0-100.0); Mean Platelet Volume 8.6 fL (9.4-12.4); Monocytes # (auto) 0.78 K/uL (0.11-0.59); Monocytes % (auto) 6.9 %; Neutrophils # (auto) 9.36 K/uL (1.40-6.50); Neutrophils % (auto) 82.9 %; Platelet Count 286 K/uL (130-400); RDW Coefficient of Variation 15.6 % (11.5-14.5); RDW Standard Deviation 47.9 fL (36.4-46.3); Red Blood Count 3.23 M/uL (4.20-5.40); White Blood Count 11.28 K/ul (4.8-10.8)
[2024-04-01 11:09] LABS: BUN Creatinine Ratio 18.4 (10-20); Calcium 8.4 mg/dl (8.6-10.3); Creatinine Clr Calc Pharmacy 11.4 ml/min; Est GFR (African American) 12.6 ml/min; Est GFR (Non-African American) 10.9 ml/min; Potassium 4.3 mmol/L (3.5-5.1)
--- NOTE | 2024-04-01 19:37 | Hospitalist Progress Note ---
Date of Service April 01, 2024 delayed entry date of service noted above Assessment & Plan (1) CHF (congestive heart failure): Plan: Decompensated heart failure History of diastolic dysfunction -- Lasix 100 mg IV twice daily ordered Heparin continued Nephrology service consulted Cardiology service also on board Acute renal failure --Renal ultrasound unrevealing Continue to monitor closely while on Lasix Troponin elevation secondary to illness -IV likely secondary to demand ischemia ? 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 Seen resting in bed, comfortable, States she continues to feel improved Breathing is improving, no chest pain, dizziness No other new symptoms Review of Systems Review of Systems: all noted and negative except for above Physical Exam Physical Exam: General- oriented x 3, not in distress, speaks in sentences with no effort or accessory muscle use Eyes- anicteric Neck- no JVD Lungs-mild rales at the bases Heart- normal rate, regular rhythm; no murmurs Abdomen- normal bowel sounds, nondistended, soft, nontender Extremities- no pretibial edema, no calf tenderness Neuro- alert, oriented x 3; no gross focal neurologic deficits Skin- warm & dry Results & Data Results & Data Vital Signs (Past 12 Hours) Vital Signs Temp Pulse Pulse Resp BP Pulse Ox O2 Del Method 04/01/24 19:10 37.0 C 61 18 120/57 L 97 Room Air 04/01/24 16:13 36.6 C 61 17 122/62 97 Room Air 04/01/24 15:49 63 04/01/24 11:03 36.5 C 59 L 17 127/62 97 Room Air 04/01/24 08:54 66 04/01/24 07:45 Room Air 04/01/24 07:45 59 L all noted and reviewed including below (1) CHF (congestive heart failure) Heart failure chronicity: acute on chronic Heart failure type: unspecified Qualified Code(s): I50.9 - Heart failure, unspecified
[2024-04-02 06:31] LABS: Basophils # (auto) 0.04 K/uL (0.00-0.20); Basophils % (auto) 0.4 %; Eosinophils # (auto) 0.21 K/uL (0.00-0.50); Eosinophils % (auto) 2.3 %; Hematocrit (blood only) 25.9 % (37.0-47.0); Hemoglobin 8.3 g/dl (12.0-16.0); Immature Granulocytes # (auto) 0.05 K/uL (0.01-0.20); Immature Granulocytes % (auto) 0.6 %; Lymphocytes # (auto) 1.37 K/uL (1.20-3.40); Lymphocytes % (auto) 15.3 %; Mean Corpuscular Hemoglobin 26.9 pg (25.0-34.0); Mean Corpuscular Volume 83.8 fL (80.0-100.0); Mean Platelet Volume 8.3 fL (9.4-12.4); Monocytes # (auto) 0.74 K/uL (0.11-0.59); Monocytes % (auto) 8.2 %; Neutrophils # (auto) 6.57 K/uL (1.40-6.50); Neutrophils % (auto) 73.2 %; Platelet Count 232 K/uL (130-400); RDW Coefficient of Variation 15.7 % (11.5-14.5); Red Blood Count 3.09 M/uL (4.20-5.40); White Blood Count 8.98 K/ul (4.8-10.8)
[2024-04-02 06:54] LABS: BUN Creatinine Ratio 20.8 (10-20); Calcium 7.9 mg/dl (8.6-10.3); Creatinine Clr Calc Pharmacy 12.1 ml/min; Est GFR (African American) 13.9 ml/min; Potassium 3.9 mmol/L (3.5-5.1)
--- NOTE | 2024-04-02 10:18 | Nephrology Progress Note ---
Date of Service April 02, 2024 Assessment & Plan (1) Acute renal failure: Plan: Patient with nonoliguric stage 3 acute renal failure on CKD (based on anuria) attributed to cardiorenal syndrome. Creatinine of 3.6 on 03/31 presentation from a baseline of 1.3 OP spring 2023 on 2 checks after november admission here. She followed previously in CKD clinic w/ us but was lost to care, ? d/t pandemic; CKD attributed to HTN, advancing age. Anuria has resolved w/ blanchard placement; hx of urinary retention at 11/2023 admission as well. She had hypokalemia likely due to outpatient use of Lokelma. -renal failure therapies including dialysis (possibly PD) and conservative mgt were 03/31 reviewed w/ pt; concern that in center HD might be a challenge due to chronic hip pain and back pain. Lives w/ her daughter who could be PD critical care nurse practitioner if needed, at least potentially. >>creatinine slightly improved, volume status ok today as are chemistries UA 2+ protein/blood; also w/ bacteria, LE, WBC >> no UTI however >no current need for emergent HD >>>>will adjust lasix dose to 60 mg IV tid and keep purewick for now -continue to monitor renal function with daily BMP, monitor input output and avoid nephrotoxins such as contrast. Renally dose antibiotics and other medications for current GFR (2) CHF (congestive heart failure): Plan: Patient with HF acute on chronic. Acute trigger was likely A-fib with RVR. Patient has now converted to sinus rhythm. admission chest x-ray showed cardiomegaly and pulmonary edema. anuria responded to IV Lasix aggressively dosed Admission and Anticipated Discharge Date Admission Date: March 31, 2024 Subjective no interval events. not very hungry but tolreating po. no sob; no n/v; tolerating purewick. ongoing R hip pain.seen on late am rounds today Review of Systems 2 Review of Systems: All systems reviewed & are unremarkable except as noted in Subjective Physical Exam 2 Constitutional: well developed, well nourished, + frail appearing (cannnot lean forward in bed w/o asst) and cooperative; no acute distress Eyes: EOM intact bilaterally ENMT: Ears: no external ear abnormality Nose: no external nose abnormality Mouth: + dry oral mucous membranes Neck: no nuchal rigidity Respiratory: normal respiratory effort Auscultation: + diminished lung sounds and + crackles (late insp) Cardiovascular: Rate/Rhythm: regular rate and regular rhythm Extremities: + edema (at most trace dependent ) Gastrointestinal (Abdomen): Inspection/Auscultation: normal bowel sounds P ercussion/Palpation: abdomen soft; abdomen nontender Musculoskeletal: Extremities: strength 5/5 throughout Skin: no rashes, warm and dry Psychiatric: Orientation: alert and oriented x 3 Speech: normal rate/rhythm/volume of speech Results & Data Vital Signs (Past 12 Hours) Vital Signs Temp Pulse Pulse Resp BP Pulse Ox O2 Del Method 04/02/24 07:51 Room Air 04/02/24 07:51 79 04/02/24 07:26 37.4 C 64 16 121/57 L 96 Room Air 04/02/24 02:46 36.5 C 80 18 122/69 96 Room Air 04/01/24 22:53 36.5 C 72 16 118/60 98 Room Air Laboratory Results 04/02/24 06:05 04/02/24 06:05 (1) Acute renal failure Acute renal failure type: unspecified Qualified Code(s): N17.9 - Acute kidney failure, unspecified (2) CHF (congestive heart failure) Heart failure chronicity: acute on chronic Heart failure type: unspecified Qualified Code(s): I50.9 - Heart failure, unspecified
[2024-04-02] MEDS: FUROSEMIDE 40 MG/4 ML VIAL IV SCH (14:53)
[2024-04-02] MEDS: HEPARIN SOD 5,000 UNIT/0.5 ML VIAL SQ SCH (21:28)
[2024-04-03 06:33] LABS: Basophils # (auto) 0.04 K/uL (0.00-0.20); Basophils % (auto) 0.5 %; Eosinophils # (auto) 0.24 K/uL (0.00-0.50); Eosinophils % (auto) 2.7 %; Hematocrit (blood only) 27.1 % (37.0-47.0); Hemoglobin 8.2 g/dl (12.0-16.0); Immature Granulocytes # (auto) 0.03 K/uL (0.01-0.20); Immature Granulocytes % (auto) 0.3 %; Lymphocytes # (auto) 1.98 K/uL (1.20-3.40); Lymphocytes % (auto) 22.5 %; Mean Corpuscular Hemoglobin 25.6 pg (25.0-34.0); Mean Corpuscular Hgb Conc 30.3 g/dL (32.0-36.0); Mean Corpuscular Volume 84.7 fL (80.0-100.0); Mean Platelet Volume 8.6 fL (9.4-12.4); Monocytes # (auto) 0.75 K/uL (0.11-0.59); Monocytes % (auto) 8.5 %; Neutrophils # (auto) 5.76 K/uL (1.40-6.50); Neutrophils % (auto) 65.5 %; Platelet Count 255 K/uL (130-400); RDW Coefficient of Variation 15.7 % (11.5-14.5); RDW Standard Deviation 48.8 fL (36.4-46.3)
[2024-04-03 06:54] LABS: BUN Creatinine Ratio 21.8 (10-20); Calcium 8.1 mg/dl (8.6-10.3); Creatinine Clr Calc Pharmacy 13.1 ml/min; Est GFR (African American) 15.2 ml/min; Est GFR (Non-African American) 13.2 ml/min; Potassium 3.9 mmol/L (3.5-5.1)
[2024-04-03 07:11] LABS: Folate (Folic Acid),Ser orPlas > 22.30 ng/ml (>5.38)
[2024-04-03 07:12] LABS: Vitamin B12 248 pg/ml (180-914)
[2024-04-03] MEDS: CYANOCOBALAMIN (B-12) 500 MCG TABLET PO SCH (09:23)
--- NOTE | 2024-04-03 10:14 | Nephrology Progress Note ---
Date of Service April 03, 2024 Assessment & Plan (1) Acute renal failure: Plan: Patient with nonoliguric stage 3 acute renal failure on CKD (based on anuria) attributed to cardiorenal syndrome. Creatinine of 3.6 on 03/31 presentation from a baseline of 1.3 OP spring 2023 on 2 checks after november admission here. She followed previously in CKD clinic w/ us but was lost to care, ? d/t pandemic; CKD attributed to HTN, advancing age. Anuria has resolved w/ blanchard placement; hx of urinary retention at 11/2023 admission as well. She had hypokalemia on presentation as well likely due to outpatient use of Lokelma. UA 2+ protein/blood; also w/ bacteria, LE, WBC >> no UTI however >>>>>>>creatinine further improved, volume status ok today on exam as are chemistries >no current need for emergent dialysis >>>>will continue lasix 60 mg IV tid and keep purewick for now -continue to monitor renal function with daily BMP, monitor input output and avoid nephrotoxins such as contrast. Renally dose antibiotics and other medications for current GFR >>>>ordered repeat CXR 2 view for today to help assess when we can change to po; asked RN to give pain med before transfer >>awaiting PT/OT eval currently; pt hoping for d/c home w/ daughter as previously -renal failure therapies including dialysis (possibly PD) and conservative mgt were 03/31 reviewed w/ pt; concern that in center HD might be a challenge due to chronic hip pain and back pain. Lives w/ her daughter who could be PD personal care aid if needed, at least potentially. (2) CHF (congestive heart failure): Plan: Patient with HF acute on chronic. Acute trigger was likely A-fib with RVR. Patient converted to sinus rhythm. admission chest x-ray showed cardiomegaly and pulmonary edema. anuria responded to IV Lasix aggressively dosed >cont lasix >f/u repeat cxr >>pt taking minimal po but will start 1.5L FR >>stopped amlodipine / not needed for BP control Admission and Anticipated Discharge Date Admission Date: March 31, 2024 Subjective no acute interval events. tells me has slept in recliner x years prior to admission d/t pain /inability to get in/out of bed. no sob or cough today; feels may be breathing a bit better; no nedema or n/v Review of Systems 2 Review of Systems: All systems reviewed & are unremarkable except as noted in Subjective Physical Exam 2 Constitutional: well developed, well nourished, + frail appearing (cannnot lean forward in bed w/o asst) and cooperative; no acute distress Eyes: EOM intact bilaterally ENMT: Ears: no external ear abnormality Nose: no external nose abnormality Mouth: + dry oral mucous membranes Neck: no nuchal rigidity Respiratory: normal respiratory effort Auscultation: + diminished lung sounds (post rocha BL) and + crackles (fine, diffuse at base) Cardiovascular: Rate/Rhythm: regular rate and regular rhythm Extremities: + edema (at most trace dependent ) Gastrointestinal (Abdomen): Inspection/Auscultation: normal bowel sounds P ercussion/Palpation: abdomen soft; abdomen nontender Musculoskeletal: Extremities: strength 5/5 throughout Skin: no rashes, warm and dry Psychiatric: Orientation: alert and oriented x 3 Speech: normal rate/rhythm/volume of speech Results & Data Vital Signs (Past 12 Hours) Vital Signs Temp Pulse Pulse Resp BP Pulse Ox O2 Del Method 04/03/24 07:34 36.6 C 71 16 113/58 L 96 Room Air 04/03/24 02:41 36.9 C 70 18 102/43 L 95 Room Air 04/02/24 23:04 62 04/02/24 22:57 36.6 C 73 16 112/49 L 96 Room Air Laboratory Results 04/03/24 05:31 04/03/24 05:31 (1) Acute renal failure Acute renal failure type: unspecified Qualified Code(s): N17.9 - Acute kidney failure, unspecified (2) CHF (congestive heart failure) Heart failure chronicity: acute on chronic Heart failure type: unspecified Qualified Code(s): I50.9 - Heart failure, unspecified
--- NOTE | 2024-04-03 11:55 | XRay Report ---
XR chest 2V PA/lateral HISTORY: 88 years-old Female f/u vasc congestion/ pl effusions acute shortness breath COMPARISON: 03/30/2024 TECHNIQUE: AP and lateral views of the chest FINDINGS: Cardiac silhouette is enlarged. Median sternotomy with cardiac valvular prosthesis. Atherosclerosis o f the aorta. No pneumothorax. Pulmonary vascular congestion with interstitial coarsening redemonstrat ed. Layering pleural effusions with unchanged bibasilar densities. Bones appear grossly intact. IMPRESSION: 1. Cardiomegaly with unchanged pulmonary edema. 2. Stable layering pleural effusions with bibasilar densities. ACT 112: Negative or not required by law. The above report was generated using voice recognition software. It may contain grammatical, syntax o r spelling errors. Electronically signed by: Gerry Rg M.D. 04/03/2024 11:54 AM
--- NOTE | 2024-04-03 14:45 | Hospitalist Progress Note ---
Date of Service April 03, 2024 Assessment & Plan (1) CHF (congestive heart failure): Plan: Acute on chronic diastolic heart failure History of diastolic dysfunction Patient presents with increasing lower extremity swelling and shortness of breath Checks x-ray revealed cardiomegaly with pulmonary edema along with layering pleural effusion BNP elevated to 1385 Currently on IV Lasix of 40 mg 3 times a day Continue strict input and output monitoring Daily weights Acute renal failure Possible cardiorenal syndrome Creatinine of 3.57 on admission; baseline around 1.6 Nephrology on board; Continue on IV Lasix as above CAD status post CABG valvular heart disease (history of bioprosthetic AVR, mild MR) hypertension- on amlodipine, metoprolol. continue hyperlipidemia- on Lipitor, continue DM2 - on oral medications, suboptimal control as of recent hemoglobin A1c of 8.8 last November 2023 - ISS Hypokalemia - resolved chronic anemia - hemoglobin at baseline DVT prophylaxis Heparin SC DNR Time spent evaluating patient, direct bedside care, chart review, placing orders, interpretation of diagnostic studies, discussion with consultants, patient, and family members, as well as other required patient management activities is 50 minutes Please note the above document was generated using voice recognition software. It may contain grammatical, syntax or spelling errors. Any formal questions or concerns about the content, text or information contained within the body of this dictation should be directly addressed to the provider for clarification Admission and Anticipated Discharge Date Admission Date: March 31, 2024 Subjective Patient sitting up on a chair at the side of the bed; comfortable. Her daughters and her sister are also at bedside She reports that she is feeling slightly better compared to admission. Reports that her shortness of breath has improved Review of Systems Review of Systems: All systems reviewed & are unremarkable except as noted in Subjective Physical Exam Physical Exam: General- oriented x 3, not in distress, speaks in sentences with no effort or accessory muscle use Eyes- anicteric Neck- no JVD Lungs-Bilateral crackles at bases. Heart- normal rate, regular rhythm; no murmurs Abdomen- normal bowel sounds, nondistended, soft, nontender Extremities- no pretibial edema, no calf tenderness Neuro- alert, oriented x 3; no gross focal neurologic deficits Skin- warm & dry Results & Data Results & Data Vital Signs (Past 12 Hours) Vital Signs Temp Pulse Resp BP Pulse Ox O2 Del Method 04/03/24 12:10 36.5 C 69 16 131/67 95 Room Air 04/03/24 07:34 36.6 C 71 16 113/58 L 96 Room Air (1) CHF (congestive heart failure) Heart failure chronicity: acute on chronic Heart failure type: unspecified Qualified Code(s): I50.9 - Heart failure, unspecified
[2024-04-03] MEDS ORDERED: POLYETHYLENE (MIRALAX) 17 GM PACK PO PRN (20:59)
[2024-04-04 08:19] LABS: Basophils # (auto) 0.05 K/uL (0.00-0.20); Basophils % (auto) 0.5 %; Eosinophils # (auto) 0.11 K/uL (0.00-0.50); Eosinophils % (auto) 1.2 %; Hematocrit (blood only) 26.6 % (37.0-47.0); Hemoglobin 8.5 g/dl (12.0-16.0); Immature Granulocytes # (auto) 0.05 K/uL (0.01-0.20); Immature Granulocytes % (auto) 0.5 %; Lymphocytes # (auto) 1.33 K/uL (1.20-3.40); Lymphocytes % (auto) 14.5 %; Mean Corpuscular Hemoglobin 26.6 pg (25.0-34.0); Mean Corpuscular Volume 83.1 fL (80.0-100.0); Mean Platelet Volume 8.4 fL (9.4-12.4); Monocytes # (auto) 0.78 K/uL (0.11-0.59); Monocytes % (auto) 8.5 %; Neutrophils # (auto) 6.84 K/uL (1.40-6.50); Neutrophils % (auto) 74.8 %; Platelet Count 263 K/uL (130-400); RDW Coefficient of Variation 15.6 % (11.5-14.5); RDW Standard Deviation 47.6 fL (36.4-46.3); White Blood Count 9.16 K/ul (4.8-10.8)
[2024-04-04 08:42] LABS: BUN Creatinine Ratio 23.3 (10-20); Calcium 8.1 mg/dl (8.6-10.3); Creatinine Clr Calc Pharmacy 14.6 ml/min; Est GFR (African American) 19.3 ml/min; Est GFR (Non-African American) 16.7 ml/min; Potassium 3.8 mmol/L (3.5-5.1)
--- NOTE | 2024-04-04 09:28 | Hospitalist Progress Note ---
Date of Service April 04, 2024 Assessment & Plan (1) CHF (congestive heart failure): Plan: Acute on chronic diastolic heart failure History of diastolic dysfunction Patient presents with increasing lower extremity swelling and shortness of breath Checks x-ray revealed cardiomegaly with pulmonary edema along with layering pleural effusion BNP elevated to 1385 Currently on IV Lasix of 40 mg 3 times a day. 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 continue hyperlipidemia- on Lipitor, continue DM2 - on oral medications, suboptimal control as of recent hemoglobin A1c of 8.8 last November 2023 - ISS Hypokalemia - resolved chronic anemia - hemoglobin at baseline DVT prophylaxis Heparin SC DNR Time spent evaluating patient, direct bedside care, chart review, placing orders, interpretation of diagnostic studies, discussion with consultants, p atient, and family members, as well as other required patient management activities is 50 minutes Please note the above document was generated using voice recognition software. It may contain grammatical, syntax or spelling errors. Any formal questions or concerns about the content, text or information contained within the body of this dictation should be directly addressed to the provider for clarification Admission and Anticipated Discharge Date Admission Date: March 31, 2024 Subjective Patient continues to report improvement in her shortness of breath She is saturating well in room air; vital signs stable Physical Exam Physical Exam: General- oriented x 3, not in distress, speaks in sentences with no effort or accessory muscle use Eyes- anicteric Neck- no JVD Lungs-Bilateral crackles at bases. Heart- normal rate, regular rhythm; no murmurs Abdomen- normal bowel sounds, nondistended, soft, nontender Extremities- no pretibial edema, no calf tenderness Neuro- alert, oriented x 3; no gross focal neurologic deficits Skin- warm & dry Results & Data Results & Data Vital Signs (Past 12 Hours) Vital Signs Temp Pulse Pulse Resp BP Pulse Ox O2 Del Method 04/04/24 08:00 Room Air 04/04/24 07:32 80 04/04/24 07:02 36.8 C 66 18 118/64 97 Room Air 04/04/24 02:50 36.8 C 82 16 114/68 95 Room Air 04/03/24 23:03 36.3 C L 75 14 134/66 94 Room Air (1) CHF (congestive heart failure) Heart failure chronicity: acute on chronic Heart failure type: unspecified Qualified Code(s): I50.9 - Heart failure, unspecified
--- NOTE | 2024-04-04 12:17 | Nephrology Progress Note ---
Date of Service April 04, 2024 Assessment & Plan (1) Acute renal failure: Plan: Patient with nonoliguric stage 3 acute renal failure on CKD (based on anuria) attributed to cardiorenal syndrome. Creatinine of 3.6 on 03/31 presentation from a baseline of 1.3 OP spring 2023 on 2 checks after november admission here. She followed previously in CKD clinic w/ us but was lost to care, ? d/t pandemic; CKD attributed to HTN, advancing age. Anuria has resolved w/ diuretic trial; hx of urinary retention at 11/2023 admission as well. She had hypokalemia on presentation as well likely due to outpatient use of Lokelma. UA 2+ protein/blood; also w/ bacteria, LE, WBC >> no UTI however >>>>>>>today creatinine further improved w/ acceptable chemistries; remains volume overloaded on exam >> favor continued aggressive diuresis, anticipate at least 2-3 days more IV diuretics given CXR 04/03 >no current need for emergent dialysis >>>>will continue lasix 60 mg IV and increase to qid and keep purewick for now >start K 10 mEq bid -continue to monitor renal function with daily BMP, monitor input output and avoid nephrotoxins such as contrast. Renally dose antibiotics and other medications for current GFR >>PT recommends short term rehab; pt hoping for d/c home w/ daughter as previously -renal failure therapies including dialysis (possibly PD) and conservative mgt were 03/31 reviewed w/ pt; concern that in center HD might be a challenge due to chronic hip pain and back pain. Lives w/ her daughter who could be PD healthcare economics manager if needed, at least potentially. (2) CHF (congestive heart failure): Plan: Patient with HF acute on chronic. Acute trigger was likely A-fib with RVR. Patient converted to sinus rhythm. admission chest x-ray showed cardiomegaly and pulmonary edema. anuria responded to IV Lasix aggressively dosed >cont lasix >>pt taking minimal po but will start 1.5L FR >>no other antihypertensives at this time except low dose metoprolol Admission and Anticipated Discharge Date Admission Date: March 31, 2024 Subjective feels ok; walked 30 feet w/ PT; still considerable back, hip pain (chronic); no marked sob; purewick works ok Review of Systems 2 Review of Systems: All systems reviewed & are unremarkable except as noted in Subjective Physical Exam 2 Constitutional: well developed, well nourished, + frail appearing (cannnot lean forward in bed w/o asst) and cooperative; no acute distress Eyes: EOM intact bilaterally ENMT: Ears: no external ear abnormality Nose: no external nose abnormality Mouth: + dry oral mucous membranes Neck: no nuchal rigidity Respiratory: normal respiratory effort Auscultation: + diminished lung sounds (post rocha BL) and + crackles (fine, diffuse at base) Cardiovascular: Rate/Rhythm: regular rate, regular rhythm and + irregularly irregular Extremities: + edema (at most trace dependent ) Gastrointestinal (Abdomen): Inspection/Auscultation: normal bowel sounds P ercussion/Palpation: abdomen soft; abdomen nontender Musculoskeletal: Extremities: strength 5/5 throughout Skin: no rashes, warm and dry Psychiatric: Orientation: alert and oriented x 3 Speech: normal rate/rhythm/volume of speech Results & Data Vital Signs (Past 12 Hours) Vital Signs Temp Pulse Pulse Resp BP Pulse Ox O2 Del Method 04/04/24 08:00 Room Air 04/04/24 07:32 80 04/04/24 07:02 36.8 C 66 18 118/64 97 Room Air 04/04/24 02:50 36.8 C 82 16 114/68 95 Room Air Laboratory Results 04/04/24 08:02 04/04/24 08:02 Diagnostic Findings CXR 04/03 2 v (images personally reviewed; agree w/ report) 1. Cardiomegaly with unchanged pulmonary edema. 2. Stable layering pleural effusions with bibasilar densities. (1) Acute renal failure Acute renal failure type: unspecified Qualified Code(s): N17.9 - Acute kidney failure, unspecified (2) CHF (congestive heart failure) Heart failure chronicity: acute on chronic Heart failure type: unspecified Qualified Code(s): I50.9 - Heart failure, unspecified
[2024-04-04] MEDS ORDERED: PHARMACY GLYCEMIC MGMT CONSULT PRN (12:21)
[2024-04-04] MEDS: LANTUS PER UNIT CHARGE SQ SCH ×2 (12:51→17:32)
--- NOTE | 2024-04-04 13:54 | Pharmacy Report ---
Pharmacy Glycemic Short Note 2 - Date of Service April 04, 2024 - Glycemic Short BSG Results (Last 24 hours): 04/03/24 04/03/24 04/04/24 16:33 20:24 07:04 Glucose POC Glucose 237 H 219 H 208 H 04/04/24 04/04/24 08:02 12:10 Glucose 187 H POC Glucose 332 H* OUTPATIENT ANTIDIABETIC REGIMEN: * Glipizide 20 mg PO daily * Sitagliptin 50 mg PO daily HbA1c: 8.8% (03/31/24) ASSESSMENT: * JACKI is an 88 year old female who originally presented to ED on 03/30/24 w/ SOB * Patient with history of poorly controlled T2DM (on orals as outpatient) * Pharmacy consulted for glycemic management on 04/04/24 due to labile blood sugars (332 mg/dL at time of consult) * Earlier this admission, patient experienced hypoglycemia with only 5 units of basal insulin * Despite current hyperglycemia, will be conservative with initial insulin dosing * current Novolog parameters are quite loose - will tighten * low-dose basal scale this evening PLAN FOR INPATIENT GLYCEMIC CONTROL: * Hold outpatient oral diabetes medications * Basal insulin * Lantus 0-3 units SC w/ dinner (see EHR for details) * Reassess in AM * Bolus insulin * NovoLog per scale ACHS or Q6hrs while NPO * Goal Range: Low 120 mg/dL - High 150 mg/dL * Correction Factor: 45 mg/dL/unit * Nutritional / Prandial insulin per carb ratio of 1 unit per 15 grams CHO consumed
[2024-04-04] MEDS: FUROSEMIDE 40 MG/4 ML VIAL IV SCH (20:36)
[2024-04-04] MEDS: POTASSIUM CHLORIDE 10 MEQ TABCR PO SCH (20:39)
[2024-04-05 05:06] LABS: Basophils # (auto) 0.04 K/uL (0.00-0.20); Basophils % (auto) 0.5 %; Eosinophils # (auto) 0.19 K/uL (0.00-0.50); Eosinophils % (auto) 2.4 %; Hematocrit (blood only) 26.3 % (37.0-47.0); Hemoglobin 8.3 g/dl (12.0-16.0); Immature Granulocytes # (auto) 0.04 K/uL (0.01-0.20); Immature Granulocytes % (auto) 0.5 %; Lymphocytes # (auto) 1.94 K/uL (1.20-3.40); Lymphocytes % (auto) 24.2 %; Mean Corpuscular Hemoglobin 26.3 pg (25.0-34.0); Mean Corpuscular Hgb Conc 31.6 g/dL (32.0-36.0); Mean Corpuscular Volume 83.2 fL (80.0-100.0); Mean Platelet Volume 8.4 fL (9.4-12.4); Monocytes # (auto) 0.71 K/uL (0.11-0.59); Monocytes % (auto) 8.9 %; Neutrophils # (auto) 5.09 K/uL (1.40-6.50); Neutrophils % (auto) 63.5 %; Platelet Count 236 K/uL (130-400); RDW Coefficient of Variation 15.3 % (11.5-14.5); Red Blood Count 3.16 M/uL (4.20-5.40); White Blood Count 8.01 K/ul (4.8-10.8)
[2024-04-05 05:22] LABS: BUN Creatinine Ratio 22.8 (10-20); Creatinine Clr Calc Pharmacy 13.6 ml/min; Est GFR (African American) 17.8 ml/min; Est GFR (Non-African American) 15.3 ml/min; Potassium 3.8 mmol/L (3.5-5.1)
[2024-04-05] MEDS ORDERED: LANTUS PER UNIT CHARGE SQ SCH (09:00)
[2024-04-05] MEDS: LANTUS PER UNIT CHARGE SC SCH (12:58)
[2024-04-05] MEDS: MAGNESIUM HYDROXIDE SUSP 30 ML UDC PO ONE (12:58)
[2024-04-05] MEDS: POLYETHYLENE (MIRALAX) 17 GM PACK PO SCH (12:58)
--- NOTE | 2024-04-05 14:17 | Hospitalist Progress Note ---
Date of Service April 05, 2024 Assessment & Plan (1) CHF (congestive heart failure): Plan: Acute on chronic diastolic heart failure History of diastolic dysfunction Patient presents with increasing lower extremity swelling and shortness of breath Checks x-ray revealed cardiomegaly with pulmonary edema along with layering pleural effusion BNP elevated to 1385 Currently on IV Lasix of 60 mg 3 times a day. -5.7 L since admission Continue strict input and output monitoring Daily weights Acute renal failure On CKD Possible cardiorenal syndrome Creatinine of 3.57 on admission; baseline around 1.6 Creatinine improved to 2.67 Nephrology on board; Continue on IV Lasix as above CAD status post CABG valvular heart disease (history of bioprosthetic AVR, mild MR) hypertension- on amlodipine, metoprolol. continue hyperlipidemia- on Lipitor, continue DM2 - on oral medications, suboptimal control as of recent hemoglobin A1c of 8.8 last November 2023 - ISS Hypokalemia - resolved chronic anemia - hemoglobin at baseline DVT prophylaxis Heparin SC DNR Discussed plan of care with daughter at bedside. She is agreeable with the plan Time spent evaluating patient, direct bedside care, chart review, placing orders, interpretation of diagnostic studies, discussion with consultants, patient, and family members, as well as other required patient management activities is 50 minutes Please note the above document was generated using voice recognition software. It may contain grammatical, syntax or spelling errors. Any formal questions or concerns about the content, text or information contained within the body of this dictation should be directly addressed to the provider for clarification Admission and Anticipated Discharge Date Admission Date: March 31, 2024 Subjective Patient sitting up on the chair at the side of the bed eating her lunch. She is comfortable; not in distress Vital signs stable Physical Exam Physical Exam: General- oriented x 3, not in distress, speaks in sentences with no effort or accessory muscle use Eyes- anicteric Neck- no JVD Lungs-Bilateral crackles at bases. Heart- normal rate, regular rhythm; no murmurs Abdomen- normal bowel sounds, nondistended, soft, nontender Extremities- no pretibial edema, no calf tenderness Neuro- alert, oriented x 3; no gross focal neurologic deficits Skin- warm & dry Results & Data Results & Data Vital Signs (Past 12 Hours) Vital Signs Temp Pulse Pulse Resp BP Pulse Ox O2 Del Method 04/05/24 11:47 73 04/05/24 11:33 36.8 C 73 18 117/61 95 Room Air 04/05/24 07:36 37.1 C 70 18 135/66 97 Room Air 04/05/24 02:49 36.7 C 66 16 113/67 93 Room Air (1) CHF (congestive heart failure) Heart failure chronicity: acute on chronic Heart failure type: unspecified Qualified Code(s): I50.9 - Heart failure, unspecified
--- NOTE | 2024-04-05 18:56 | Nephrology Progress Note ---
Date of Service April 05, 2024 Assessment & Plan (1) Acute renal failure: Plan: Patient with nonoliguric stage 3 acute renal failure on CKD (based on anuria) attributed to cardiorenal syndrome. Creatinine of 3.6 on 03/31 presentation from a baseline of 1.3 OP spring 2023 on 2 checks after november admission here. She followed previously in CKD clinic w/ us but was lost to care, ? d/t pandemic; CKD attributed to HTN, advancing age. Anuria has resolved w/ diuretic trial; hx of urinary retention at 11/2023 admission as well. She had hypokalemia on presentation as well likely due to outpatient use of Lokelma. UA 2+ protein/blood; also w/ bacteria, LE, WBC >> no UTI however >>>>>>>today creatinine stable after initial improvement w/ acceptable chemistries; remains volume overloaded on exam >> favor continued aggressive diuresis, anticipate at least 2-3 days more IV diuretics given CXR 04/03 >no current need for emergent dialysis >>>>will lower frequency of lasix 60 mg IV back to tid and keep purewick for now >increase K 10 mEq bid > tid -continue to monitor renal function with daily BMP, monitor input output and avoid nephrotoxins such as contrast. Renally dose antibiotics and other medications for current GFR >>PT recommends short term rehab; pt hoping for d/c home w/ daughter as previously -renal failure therapies including dialysis (possibly PD) and conservative mgt were 03/31 reviewed w/ pt; concern that in center HD might be a challenge due to chronic hip pain and back pain. Lives w/ her daughter who could be PD hospice care consultant if needed, at least potentially. (2) CHF (congestive heart failure): Plan: Patient with HF acute on chronic. Acute trigger was likely A-fib with RVR. Patient converted to sinus rhythm. admission chest x-ray showed cardiomegaly and pulmonary edema. anuria responded to IV Lasix aggressively dosed >cont lasix >>pt taking minimal po but will start 1.5L FR >>no other antihypertensives at this time except low dose metoprolol Admission and Anticipated Discharge Date Admission Date: March 31, 2024 Subjective seen on late AM rounds; daughter at bedside; pt feels a bit improved breathing cisneros Review of Systems 2 Review of Systems: All systems reviewed & are unremarkable except as noted in Subjective Physical Exam 2 Constitutional: well developed, + thin, + frail appearing (cannnot lean forward in chair w/o asst) and cooperative; no acute distress Eyes: EOM intact bilaterally ENMT: Ears: no external ear abnormality Nose: no external nose abnormality Mouth: + dry oral mucous membranes Neck: no nuchal rigidity Respiratory: normal respiratory effort Auscultation: + diminished lung sounds (post rocha BL) and + crackles (fine, diffuse at base) Cardiovascular: Rate/Rhythm: regular rate, regular rhythm and + irregularly irregular Extremities: + edema (at most trace dependent ) Gastrointestinal (Abdomen): Inspection/Auscultation: normal bowel sounds P ercussion/Palpation: abdomen soft; abdomen nontender Musculoskeletal: Extremities: strength 5/5 throughout Skin: no rashes, warm and dry Psychiatric: Orientation: alert and oriented x 3 Speech: normal rate/rhythm/volume of speech Results & Data Vital Signs (Past 12 Hours) Vital Signs Temp Pulse Pulse Resp BP Pulse Ox O2 Del Method 04/05/24 15:35 36.6 C 70 18 129/64 96 Room Air 04/05/24 11:47 73 04/05/24 11:33 36.8 C 73 18 117/61 95 Room Air 04/05/24 07:36 37.1 C 70 18 135/66 97 Room Air Laboratory Results 04/05/24 04:44 04/05/24 04:44 (1) Acute renal failure Acute renal failure type: unspecified Qualified Code(s): N17.9 - Acute kidney failure, unspecified (2) CHF (congestive heart failure) Heart failure chronicity: acute on chronic Heart failure type: unspecified Qualified Code(s): I50.9 - Heart failure, unspecified
[2024-04-05] MEDS: POTASSIUM CHLORIDE 10 MEQ TABCR PO SCH (20:37)
[2024-04-05] MEDS: FUROSEMIDE 40 MG/4 ML VIAL IV SCH (20:38)
[2024-04-05] MEDS ORDERED: Nursing to Pharmacy Communication SCH (21:00)
[2024-04-06 07:00] LABS: BUN Creatinine Ratio 23.3 (10-20); Calcium 8.2 mg/dl (8.6-10.3); Creatinine Clr Calc Pharmacy 14.1 ml/min; Est GFR (African American) 18.5 ml/min; Potassium 4.5 mmol/L (3.5-5.1)
[2024-04-06] MEDS: LANTUS PER UNIT CHARGE SC SCH (08:22)
--- NOTE | 2024-04-06 09:45 | Hospitalist Progress Note ---
Date of Service April 06, 2024 Assessment & Plan (1) CHF (congestive heart failure): Plan: Acute on chronic diastolic heart failure History of diastolic dysfunction Patient presents with increasing lower extremity swelling and shortness of breath Checks x-ray revealed cardiomegaly with pulmonary edema along with layering pleural effusion BNP elevated to 1385 Currently on IV Lasix of 60 mg 3 times a day. -7.2 L since admission Continue strict input and output monitoring Daily weights Acute renal failure On CKD Possible cardiorenal syndrome Creatinine of 3.57 on admission; baseline around 1.6 Creatinine improved to 2.58 Nephrology on board; Continue on IV Lasix as above CAD status post CABG valvular heart disease (history of bioprosthetic AVR, mild MR) hypertension- on amlodipine, metoprolol. continue hyperlipidemia- on Lipitor, continue DM2 - on oral medications, suboptimal control as of recent hemoglobin A1c of 8.8 last November 2023 - ISS Hypokalemia - resolved chronic anemia - hemoglobin at baseline DVT prophylaxis Heparin SC DNR Time spent evaluating patient, direct bedside care, chart review, placing orders, interpretation of diagnostic studies, discussion with consultants, patient, and family members, as well as other required patient management activities is 50 minutes Please note the above document was generated using voice recognition software. It may contain grammatical, syntax or spelling errors. Any formal questions or concerns about the content, text or information contained within the body of this dictation should be directly addressed to the provider for clarification Admission and Anticipated Discharge Date Admission Date: March 31, 2024 Subjective Patient seen and examined at bedside. Comfortable; not in distress. Denies fever, chills, chest pain, shortness of breath, abdominal pain or urinary symptoms. No significant overnight events Review of Systems Review of Systems: All systems reviewed & are unremarkable except as noted in Subjective Physical Exam Physical Exam: General- oriented x 3, not in distress, speaks in sentences with no effort or a ccessory muscle use Eyes- anicteric Neck- no JVD Lungs-Bilateral crackles at bases. Heart- normal rate, regular rhythm; no murmurs Abdomen- normal bowel sounds, nondistended, soft, nontender Extremities- no pretibial edema, no calf tenderness Neuro- alert, oriented x 3; no gross focal neurologic deficits Skin- warm & dry Results & Data Results & Data Vital Signs (Past 12 Hours) Vital Signs Temp Pulse Pulse Resp BP Pulse Ox O2 Del Method 04/06/24 07:55 36.8 C 79 18 118/62 94 Room Air 04/06/24 07:25 77 04/06/24 04:00 36.8 C 75 17 128/63 93 Room Air 04/06/24 00:36 76 04/06/24 00:08 37.2 C 80 18 112/63 92 Room Air (1) CHF (congestive heart failure) Heart failure chronicity: acute on chronic Heart failure type: unspecified Qualified Code(s): I50.9 - Heart failure, unspecified
--- NOTE | 2024-04-06 12:03 | Nephrology Progress Note ---
Date of Service April 06, 2024 Assessment & Plan Admission and Anticipated Discharge Date Admission Date: March 31, 2024 Subjective Assessment & Plan (1) Acute renal failure: Plan: Patient with nonoliguric acute renal failure on CKD 3 (based on anuria) attributed to cardiorenal syndrome. Creatinine of 3.6 on 03/31 presentation from a baseline of 1.3 spring 2023. CKD attributed to HTN, advancing age and now Obstructive uropathy also. Anuria has resolved w/ diuretic trial. h/o of urinary retention at 11/2023 admission as well. On Purewick now She had hypokalemia on presentation as well likely due to outpatient use of Lokelma. About 2300 ml urine with lasix 60 iv tid. Creat still improving but slowly. Continue Current lasix iv. do CXR tomorrow 04/07 for f/u. 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 Acute trigger was likely A-fib with RVR. Pa tient converted to sinus rhythm. Admission chest x-ray showed cardiomegaly and pulmonary edema. has responded to IV Lasix. Good urine and creat improving. cont iv lasix pt taking minimal po but will start 1.5L FR no other antihypertensives at this time except low dose metoprolol but BP is good Subjective seen on late AM rounds; daughter at bedside; pt feels a bit improved breathing cisneros Review of Systems Review of Systems: All systems reviewed & are unremarkable except as noted in Subjective Physical Exam Constitutional: well developed, + thin, + frail appearing (cannnot lean forward in chair w/o asst) and cooperative; no acute distress Eyes: EOM intact bilaterally ENMT: Ears: no external ear abnormality Nose: no external nose abnormality Mouth: + dry oral mucous membranes Neck: no nuchal rigidity Respiratory: normal respiratory effort Auscultation: + diminished lung sounds (post rocha BL) and + crackles (fine, diffuse at base) Cardiovascular: Rate/Rhythm: regular rate, regular rhythm and + irregularly irregular Extremities: + edema (at most trace dependent ) Gastrointestinal (Abdomen): Inspection/Auscultation: normal bowel sounds Percussion/Palpation: abdomen soft; abdomen nontender Musculoskeletal: Extremities: strength 5/5 throughout Skin: no rashes, warm and dry Psychiatric: Orientation: alert and oriented x 3 Speech: normal rate/rhythm/volume of speech Results & Data Vital Signs (Past 12 Hours) Vital Signs Temp Pulse Pulse Resp BP BP Pulse Ox 04/06/24 10:52 36.6 C 72 15 120/66 97 04/06/24 07:55 36.8 C 79 18 118/62 94 04/06/24 07:25 77 04/06/24 04:00 36.8 C 75 17 128/63 93 04/06/24 00:36 76 04/06/24 00:08 37.2 C 80 18 112/63 92 O2 Del Method 04/06/24 10:52 Room Air 04/06/24 07:55 Room Air 04/06/24 07:25 04/06/24 04:00 Room Air 04/06/24 00:36 04/06/24 00:08 Room Air
--- NOTE | 2024-04-06 14:45 | Pharmacy Report ---
Pharmacy Glycemic Short Note 2 - Date of Service April 06, 2024 - Glycemic Short BSG Results (Last 24 hours): 04/05/24 04/05/24 04/06/24 16:24 20:26 05:49 Glucose 191 H POC Glucose 247 H 159 H 04/06/24 04/06/24 07:21 11:17 Glucose POC Glucose 202 H 218 H OUTPATIENT ANTIDIABETIC REGIMEN: * Glipizide 20 mg PO daily * Sitagliptin 50 mg PO daily HbA1c: 8.8% (03/31/24) ASSESSMENT: 04/06: * Paloma received a total of 20 units of SC insulin yesterday with poor glycemic control * BSGs: 154, 244, 247, 159 mg/dL * 3 units Lantus + 17 units Novolog * Fasting BSG = 202 mg/dL. Will increase Lantus to 5 units daily. Patient experienced hypoglycemia earlier this admission after receiving Lantus 5 units. However, given that yesterday's regimen was 85% bolus and 15 % basal, I do feel the need to increase basal. * Will also tighten correctional and carbohydrate coverage 04/04: * JACKI is an 88 year old female who originally presented to ED on 03/30/24 w/ SOB * Patient with history of poorly controlled T2DM (on orals as outpatient) * Pharmacy consulted for glycemic management on 04/04/24 due to labile blood sugars (332 mg/dL at time of consult) * Earlier this admission, patient experienced hypoglycemia with only 5 units of basal insulin * Despite current hyperglycemia, will be conservative with initial insulin dosing * current Novolog parameters are quite loose - will tighten * low-dose basal scale this evening PLAN FOR INPATIENT GLYCEMIC CONTROL: * Hold outpatient oral diabetes medications * Basal insulin * Lantus 5 units SC qAM * Bolus insulin * NovoLog per scale ACHS or Q6hrs while NPO * Goal Range: Low 120 mg/dL - High 150 mg/dL * Correction Factor: 30 mg/dL/unit * Nutritional / Prandial insulin per carb ratio of 1 unit per 10 grams CHO consumed
[2024-04-07 05:28] LABS: BUN Creatinine Ratio 24.7 (10-20); Calcium 8.3 mg/dl (8.6-10.3); Creatinine Clr Calc Pharmacy 13.8 ml/min; Est GFR (African American) 18.1 ml/min; Est GFR (Non-African American) 15.6 ml/min; Potassium 4.5 mmol/L (3.5-5.1)
[2024-04-07] MEDS: POTASSIUM CHLORIDE 10 MEQ TABCR PO SCH (08:29)
[2024-04-07] MEDS: LANTUS PER UNIT CHARGE SC SCH ×2 (08:36→21:38)
--- NOTE | 2024-04-07 09:47 | Hospitalist Progress Note ---
Date of Service April 07, 2024 Assessment & Plan (1) CHF (congestive heart failure): Plan: Acute on chronic diastolic heart failure History of diastolic dysfunction Patient presents with increasing lower extremity swelling and shortness of breath Checks x-ray revealed cardiomegaly with pulmonary edema along with layering pleural effusion BNP elevated to 1385 Repeat chest x-ray on April 07, 2024 reviewed personally; improvement in pulmonary edema; left-sided pleural effusion persistent Currently on IV Lasix of 60 mg 3 times a day. -8.5 L since admission Continue strict input and output monitoring Daily weights Acute renal failure On CKD Possible cardiorenal syndrome Creatinine of 3.57 on admission; baseline around 1.6 Creatinine improved to 2.5- 2.6; stable Nephrology on board; Continue on IV Lasix as above CAD status post CABG valvular heart disease (history of bioprosthetic AVR, mild MR) hypertension- on amlodipine, metoprolol. continue hyperlipidemia- on Lipitor, continue DM2 - on oral medications, suboptimal control as of recent hemoglobin A1c of 8.8 last November 2023 -Given her progression of CKD; will need to decrease the dose of glipizide at the time of discharge and continue Januvia. Hypokalemia - resolved chronic anemia - hemoglobin at baseline DVT prophylaxis Heparin SC DNR DispositionPT OT recommends rehab; discussed with patient's daughter at bedside. They are agreeable for transition to rehab after discharge. Case management on board; appreciate recommendation Time spent evaluating patient, direct bedside care, chart review, placing orders, interpretation of diagnostic studies, discussion with consultants, patient, and family members, as well as other required patient management activities is 50 minutes Please note the above document was generated using voice recognition software. It may contain grammatical, syntax or spelling errors. Any formal questions or concerns about the content, text or information contained within the body of this dictation should be directly addressed to the provider for clarification Admission and Anticipated Discharge Date Admission Date: March 31, 2024 Subjective Patient seen and examined at bedside Continues to report improvement in the symptoms Vital signs are stable No significant events overnight Review of Systems Review of Systems: All systems reviewed & are unremarkable except as noted in Subjective Physical Exam Physical Exam: General- oriented x 3, not in distress, speaks in sentences with no effort or accessory muscle use Eyes- anicteric Neck- no JVD Lungs-Bilateral crackles at bases, improved Heart- normal rate, regular rhythm; no murmurs Abdomen- normal bowel sounds, nondistended, soft, nontender Extremities- no pretibial edema, no calf tenderness Neuro- alert, oriented x 3; no gross focal neurologic deficits Skin- warm & dry Results & Data Results & Data Vital Signs (Past 12 Hours) Vital Signs Temp Pulse Pulse Resp BP Pulse Ox O2 Del Method 04/07/24 08:01 36.7 C 83 18 118/64 98 Room Air 04/07/24 07:05 66 04/07/24 02:39 36.6 C 86 18 117/65 92 Room Air 04/07/24 00:00 83 04/06/24 22:29 36.7 C 60 18 124/62 94 Room Air (1) CHF (congestive heart failure) Heart failure chronicity: acute on chronic Heart failure type: unspecified Qualified Code(s): I50.9 - Heart failure, unspecified
--- NOTE | 2024-04-07 10:13 | XRay Report ---
XR chest 2V PA/lateral HISTORY: Congestive heart failure. Shortness of breath. COMPARISON: Chest 04/03/2024. FINDINGS: No pneumothorax. Small bilateral pleural effusions most pronounced on the right are again n oted. There is mild central pulmonary vascular congestion without overt edema. This has slightly impr jin. The heart remains mildly enlarged. There are poststernotomy changes and a cardiac valve prosthe sis again noted. Bibasilar linear densities favor atelectasis. The upper lung zones are clear. IMPRESSION: 1. Cardiomegaly with mild pulmonary vascular congestion. This has slightly improved. 2. Small bilateral pleural effusions and bibasilar densities persist. ACT 112: Negative or not required by law. Electronically signed by: Willis Patel M.D. 04/07/2024 10:11 AM
--- NOTE | 2024-04-07 12:47 | Nephrology Progress Note ---
Date of Service April 07, 2024 Assessment & Plan Admission and Anticipated Discharge Date Admission Date: March 31, 2024 Subjective Subjective Assessment & Plan (1) Acute renal failure: Plan: Patient with nonoliguric acute renal failure on CKD 3 (based on anuria) attributed to cardiorenal syndrome. Creatinine of 3.6 on 03/31 presentation from a baseline of 1.3 spring 2023. CKD attributed to HTN, advancing age and now Obstructive uropathy also. Anuria has resolved w/ diuretic trial. h/o of urinary retention at 11/2023 admission as well. On Purewick now About 2300 ml urine with lasix 60 iv tid. Creat now seems stable around 2.6 Continue Current lasix iv. 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 Acute trigger was likely A-fib with RVR. Patient converted to sinus rhythm. Admission chest x-ray showed cardiomegaly and pulmonary edema. has responded to IV Lasix. Good urine and creat improving. cont iv lasix pt taking minimal po but will start 1.5L FR no other antihypertensives at this time except low dose metoprolol but BP is good Subjective seen on late AM rounds; daughter at bedside; pt feels a bit improved breathing cisneros Review of Systems Review of Systems: All systems reviewed & are unremarkable except as noted in Subjective Physical Exam Constitutional: well developed, + thin, + frail appearing (cannnot lean forward in chair w/o asst) and cooperative; no acute distress Eyes: EOM intact bilaterally ENMT: Ears: no external ear abnormality Nose: no external nose abnormality Mouth: + dry oral mucous membranes Neck: no nuchal rigidity Respiratory: normal respiratory effort Auscultation: + diminished lung sounds (post rocha BL) and + crackles (fine, diffuse at base) Cardiovascular: Rate/Rhythm: regular rate, regular rhythm and + irregularly irregular Extremities: + edema (at most trace dependent ) Gastrointestinal (Abdomen): Inspection/Auscultation: normal bowel sounds Percussion/Palpation: abdomen soft; abdomen nontender Musculoskeletal: Extremities: strength 5/5 throughout Skin: no rashes, warm and dry Psychiatric: Orientation: alert and oriented x 3 Speech: normal rate/rhythm/volume of speech Results & Data Vital Signs (Past 12 Hours) Vital Signs Temp Pulse Pulse Resp BP Pulse Ox O2 Del Method 04/07/24 12:06 36.4 C L 58 L 18 124/57 L 95 Room Air 04/07/24 08:01 36.7 C 83 18 118/64 98 Room Air 04/07/24 07:05 66 04/07/24 02:39 36.6 C 86 18 117/65 92 Room Air
[2024-04-07] MEDS: bisacodyL 10 MG SUPP PR STA (13:38)
[2024-04-08 08:39] LABS: Calcium 8.3 mg/dl (8.6-10.3); Potassium 4.2 mmol/L (3.5-5.1)
[2024-04-08 08:45] LABS: BUN Creatinine Ratio 24.3 (10-20); Creatinine Clr Calc Pharmacy 13.4 ml/min; Est GFR (African American) 17.4 ml/min
--- NOTE | 2024-04-08 09:53 | Hospitalist Progress Note ---
Date of Service April 08, 2024 Assessment & Plan (1) CHF (congestive heart failure): Plan: Acute on chronic diastolic heart failure History of diastolic dysfunction Patient presents with increasing lower extremity swelling and shortness of breath Checks x-ray revealed cardiomegaly with pulmonary edema along with layering pleural effusion BNP elevated to 1385 Repeat chest x-ray on April 07, 2024 reviewed personally; improvement in pulmonary edema; left-sided pleural effusion persistent She was initially diuresed with IV Lasix 40 mg 3 times a day; reported improvement in her shortness of breath. Changed to p.o. torsemide 60 mg once a day. 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 continue hyperlipidemia- on Lipitor, continue DM2 - on oral medications, suboptimal control as of recent hemoglobin A1c of 8.8 last November 2023 -Given her progression of CKD; will need to decrease the dose of glipizide at the time of discharge and continue Januvia. Hypokalemia - resolved chronic anemia - hemoglobin at baseline DVT prophylaxis Heparin SC DNR DispositionPT OT recommends rehab; discussed with patient's daughter at bedside on 04/07/2024. They are agreeable for transition to rehab after discharge. Case management on board; appreciate recommendation Please note the above document was generated using voice recognition software. It may contain grammatical, syntax or spelling errors. Any formal questions or concerns about the content, text or information contained within the body of this dictation should be directly addressed to the provider for clarification Admission and Anticipated Discharge Date Admission Date: March 31, 2024 Subjective Patient seen and examined at bedside She is comfortable; not in distress She is saturating well on room air Review of Systems Review of Systems: All systems reviewed & are unremarkable except as noted in Subjective Physical Exam Physical Exam: General- oriented x 3, not in distress, speaks in sentences with no effort or accessory muscle use Eyes- anicteric Neck- no JVD Lungs-Bilateral crackles at bases, improved Heart- normal rate, regular rhythm; no murmurs Abdomen- normal bowel sounds, nondistended, soft, nontender Extremities- no pretibial edema, no calf tenderness Neuro- alert, oriented x 3; no gross focal neurologic deficits Skin- warm & dry Results & Data Results & Data Vital Signs (Past 12 Hours) Vital Signs Temp Pulse Pulse Resp BP BP Pulse Ox 04/08/24 07:44 36.6 C 95 H 18 113/62 93 04/08/24 07:32 85 04/08/24 04:17 36.5 C 93 H 16 101/63 94 04/08/24 00:00 82 04/07/24 23:56 36.7 C 58 L 16 114/55 L 95 O2 Del Method 04/08/24 07:44 Room Air 04/08/24 07:32 04/08/24 04:17 Room Air 04/08/24 00:00 04/07/24 23:56 Room Air (1) CHF (congestive heart failure) Heart failure chronicity: acute on chronic Heart failure type: unspecified Qualified Code(s): I50.9 - Heart failure, unspecified
--- NOTE | 2024-04-08 10:11 | Nephrology Progress Note ---
Date of Service April 08, 2024 Assessment & Plan Admission and Anticipated Discharge Date Admission Date: March 31, 2024 Subjective Assessment & Plan (1) Acute renal failure: Plan: Patient with nonoliguric acute renal failure on CKD 3 (based on anuria) attributed to cardiorenal syndrome. Creatinine of 3.6 on 03/31 presentation from a baseline of 1.3 spring 2023. CKD attributed to HTN, advancing age and now Obstructive uropathy also. Anuria has resolved w/ diuretic trial. h/o of urinary retention at 11/2023 admission as well. On Purewick now Creat now seems somewhat stable around 2.6---2.8. will start changing to Oral diuretics for outpt--Demadex 60 daily. stop iv lasix CXR 04/07 shows slight improvement She may very well have a much higher baseline creat going forward as the Hydronephrosis seems prominent and chronic. Also I am not seeing meaningful improvement in her status and unlikely to change. High risk of readmission f/u with her long time band leader-appt in early May (2) CHF (congestive heart failure): Plan: Patient with HF acute on chronic. Acute trigger was likely A-fib with RVR. Patient converted to sinus rhythm. Admission chest x-ray showed cardiomegaly and pulmonary edema. has responded to IV Lasix. pt taking minimal po but will start 1.5L FR no other antihypertensives at this time except low dose metoprolol but BP is good No HARRIET/ARB/ No need of Amlodipine for current BP Subjective seen on late AM rounds; daughter at bedside; pt feels a bit improved breathing cisneros Review of Systems Review of Systems: All systems reviewed & are unremarkable except as noted in Subjective Physical Exam Constitutional: well developed, + thin, + frail appearing (cannnot lean forward in chair w/o asst) and cooperative; no acute distress Eyes: EOM intact bilaterally ENMT: Ears: no external ear abnormality Nose: no external nose abnormality Mouth: + dry oral mucous membranes Neck: no nuchal rigidity Respiratory: normal respiratory effort Auscultation: + diminished lung sounds (post rocha BL) and + crackles (fine, diffuse at base) Cardiovascular: Rate/Rhythm: regular rate, regular rhythm and + irregularly irregular Extremities: + edema (at most trace dependent ) Gastrointestinal (Abdomen): Inspection/Auscultation: normal bowel sounds Percussion/Palpation: abdomen soft; abdomen nontender Musculoskeletal: Extremities: strength 5/5 throughout Skin: no rashes, warm and dry Psychiatric: Orientation: alert and oriented x 3 Speech: normal ra te/rhythm/volume of speech Results & Data Vital Signs (Past 12 Hours) Vital Signs Temp Pulse Pulse Resp BP BP Pulse Ox 04/08/24 07:44 36.6 C 95 H 18 113/62 93 04/08/24 07:32 85 04/08/24 04:17 36.5 C 93 H 16 101/63 94 04/08/24 00:00 82 04/07/24 23:56 36.7 C 58 L 16 114/55 L 95 O2 Del Method 04/08/24 07:44 Room Air 04/08/24 07:32 04/08/24 04:17 Room Air 04/08/24 00:00 04/07/24 23:56 Room Air
[2024-04-08] MEDS: TORSEMIDE 20 MG TAB PO SCH (11:11)
--- NOTE | 2024-04-08 12:11 | Pharmacy Report ---
Pharmacy Glycemic Short Note 2 - Date of Service April 08, 2024 - Glycemic Short BSG Results (Last 24 hours): 04/07/24 04/07/24 04/08/24 16:13 21:17 07:34 Glucose 110 H POC Glucose 145 H 89 04/08/24 04/08/24 07:53 11:38 Glucose POC Glucose 133 H 181 H OUTPATIENT ANTIDIABETIC REGIMEN: * Glipizide 20 mg PO daily * Sitagliptin 50 mg PO daily HbA1c: 8.8% (03/31/24) ASSESSMENT: 04/08: * Paloma received 31 units of insulin yesterday (10 were basal) * Fasting BSG within goal range, basal increased yesterday, continue * Novolog tightened yesterday, will continue for now and monitor for trends. * No glycemic stressors noted at this time. 04/06 * Paloma received a total of 20 units of SC insulin yesterday with poor glycemic control * BSGs: 154, 244, 247, 159 mg/dL * 3 units Lantus + 17 units Novolog * Fasting BSG = 202 mg/dL. Will increase Lantus to 5 units daily. Patient experienced hypoglycemia earlier this admission after receiving Lantus 5 units. However, given that yesterday's regimen was 85% bolus and 15 % basal, I do feel the need to increase basal. * Will also tighten correctional and carbohydrate coverage 04/04: * JACKI is an 88 year old female who originally presented to ED on 03/30/24 w/ SOB * Patient with history of poorly controlled T2DM (on orals as outpatient) * Pharmacy consulted for glycemic management on 04/04/24 due to labile blood sugars (332 mg/dL at time of consult) * Earlier this admission, patient experienced hypoglycemia with only 5 units of basal insulin * Despite current hyperglycemia, will be conservative with initial insulin dosing * current Novolog parameters are quite loose - will tighten * low-dose basal scale this evening PLAN FOR INPATIENT GLYCEMIC CONTROL: * Hold outpatient oral diabetes medications * Basal insulin * Lantus 10 units SC qAM * Bolus insulin * NovoLog per scale ACHS or Q6hrs while NPO * Goal Range: Low 120 mg/dL - High 150 mg/dL * Correction Factor: 25 mg/dL/unit * Nutritional / Prandial insulin per carb ratio of 1 unit per 7 grams CHO consumed
[2024-04-09 06:44] LABS: BUN Creatinine Ratio 23.4 (10-20); Calcium 8.5 mg/dl (8.6-10.3); Creatinine Clr Calc Pharmacy 11.7 ml/min; Est GFR (African American) 14.7 ml/min; Est GFR (Non-African American) 12.7 ml/min; Potassium 4.2 mmol/L (3.5-5.1)
--- NOTE | 2024-04-09 10:03 | Nephrology Progress Note ---
Date of Service April 09, 2024 Assessment & Plan Admission and Anticipated Discharge Date Admission Date: March 31, 2024 Subjective Assessment & Plan (1) Acute renal failure: Plan: Patient with nonoliguric acute renal failure on CKD 3 (based on anuria) attributed to cardiorenal syndrome. Creatinine of 3.6 on 03/31 presentation from a baseline of 1.3 spring 2023. CKD attributed to HTN, advancing age and now Obstructive uropathy also. Anuria has resolved w/ diuretic trial but now urine dropping again.. h/o of urinary retention at 11/2023 admission as well. On Purewick now Creat now worsening again with dropping urine output last few days. gone from 2300 ml to only 625 ml yesterday !! Stop Demadex 60 daily. But she already got the AM dose She now has another episode of ATN with dropping urine output despite diuretics. urine started dropping even with lasix 60 qid this is not good sign. Also I am not seeing meaningful improvement in her status and unlikely to change. High risk of readmission. Given her age and frailness will be a difficult candidate for dialysis if any. She has f/u with her long time public safety director-appt in early May--maybe defer to him but will almost certainloy have to make decision before that . I Will have discussion with family more definitely in 2 days if creat continues to rise No need of kcl--stop kcl. (2) CHF (congestive heart failure): Plan: Patient with HF acute on chronic. Acute trigger was likely A-fib with RVR. Patient converted to sinus rhythm. Admission chest x-ray showed cardiomegaly and pulmonary edema. has responded to IV Lasix. pt taking minimal po but will start 1.5L FR no other antihypertensives at this time except low dose metoprolol but BP is good No HARRIET/ARB/ No need of Amlodipine for current BP Subjective patient is weak. urine Output now dropping again with rising creat. No SOB Review of Systems Review of Systems: All systems reviewed & are unremarkable except as noted in Subjective Physical Exam Constitutional: well developed, + thin, + frail appearing (cannnot lean forward in chair w/o asst) and cooperative; no acute distress Eyes: EOM intact bilaterally ENMT: Ears: no external ear abnormality Nose: no external nose abnormality Mouth: + dry oral mucous membranes Neck: no nuchal rigidity Respiratory: normal respiratory effort Auscultation: + diminished lung sounds (post rocha BL) and + crackles (fine, diffuse at base) Cardiovascular: Rate/Rhythm: regular rate, regular rhythm and + irregularly irregular Extremities: + edema (at most trace dependent ) Gastrointestinal (Abdomen): Inspection/Auscultation: normal bowel sounds Percussion/Palpation: abdomen soft; abdomen nontender Musculoskeletal: Extremities: strength 5/5 throughout Skin: no rashes, warm and dry Psychiatric: Orientation: alert and oriented x 3 Speech: normal rate/rhythm/volume of speech Results & Data Vital Signs (Past 12 Hours) Vital Signs Temp Pulse Pulse Resp BP Pulse Ox O2 Del Method 04/09/24 07:44 89 04/09/24 07:20 36.4 C L 73 17 119/62 93 Room Air 04/09/24 04:01 36.8 C 75 18 110/58 L 93 Room Air 04/09/24 00:00 74 04/08/24 22:23 36.7 C 80 18 118/64 94 Room Air
--- NOTE | 2024-04-09 10:35 | Hospitalist Progress Note ---
Date of Service April 09, 2024 Assessment & Plan (1) CHF (congestive heart failure): Plan: Acute on chronic diastolic heart failure History of diastolic dysfunction Patient presents with increasing lower extremity swelling and shortness of breath Checks x-ray revealed cardiomegaly with pulmonary edema along with layering pleural effusion BNP elevated to 1385 Repeat chest x-ray on April 07, 2024 reviewed personally; improvement in pulmonary edema; left-sided pleural effusion persistent She was initially diuresed with IV Lasix 40 mg 3 times a day; reported improvement in her shortness of breath. Switch to oral torsemide starting 04/09/2024. However, her creatinine increased; diuretics currently on hold. Kent placed to monitor strict input and output. Acute renal failure On CKD Possible cardiorenal syndrome Creatinine of 3.57 on admission; baseline around 1.6 Creatinine improved to 2.5- 2.7;However increased to 3.12 on April 09, 2024 Diuretics currently on hold; Nephrology on board Monitor I/O. 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 Hold Amlodipine. hyperlipidemia- on Lipitor, continue DM2 - on oral medications, suboptimal control as of recent hemoglobin A1c of 8.8 last November 2023 -Given her progression of CKD; will need to decrease the dose of glipizide at the time of discharge and continue Januvia. Hypokalemia - resolved chronic anemia - hemoglobin at baseline DVT prophylaxis Heparin SC DNR DispositionPT OT recommends rehab; discussed with patient's daughter at bedside on 04/07/2024. They are agreeable for transition to rehab after discharge. Patient continues to be hospitalized due to TRACIE on CKD. She needs close monitoring of renal funtion for next few days. Please note the above document was generated using voice recognition software. It may contain grammatical, syntax or spelling errors. Any formal questions or concerns about the content, text or information contained within the body of this dictation should be directly addressed to the provider for clarification Admission and Anticipated Discharge Date Admission Date: March 31, 2024 Subjective Patient seen and examined at bedside She is comfortable; not in distress She denies any shortness of breath No significant events overnight Review of Systems Review of Systems: All systems reviewed & are unremarkable except as noted in Subjective Physical Exam Physical Exam: General- oriented x 3, not in distress, speaks in sentences with no effort or accessory muscle use Eyes- anicteric Neck- no JVD Lungs-Bilateral crackles at bases, improved Heart- normal rate, regular rhythm; no murmurs Abdomen- normal bowel sounds, nondistended, soft, nontender Extremities- no pretibial edema, no calf tenderness Neuro- alert, oriented x 3; no gross focal neurologic deficits Skin- warm & dry Results & Data Results & Data Vital Signs (Past 12 Hours) Vital Signs Temp Pulse Pulse Resp BP Pulse Ox O2 Del Method 04/09/24 07:44 89 04/09/24 07:20 36.4 C L 73 17 119/62 93 Room Air 04/09/24 04:01 36.8 C 75 18 110/58 L 93 Room Air 04/09/24 00:00 74 (1) CHF (congestive heart failure) Heart failure chronicity: acute on chronic Heart failure type: unspecified Qualified Code(s): I50.9 - Heart failure, unspecified
--- NOTE | 2024-04-09 13:54 | Pharmacy Report ---
Pharmacy Glycemic Short Note 2 - Date of Service April 09, 2024 - Glycemic Short BSG Results (Last 24 hours): 04/08/24 04/08/24 04/09/24 16:31 19:44 05:43 Glucose 126 H POC Glucose 79 154 H 04/09/24 04/09/24 07:18 11:04 Glucose POC Glucose 224 H 195 H OUTPATIENT ANTIDIABETIC REGIMEN: * Glipizide 20 mg PO daily * Sitagliptin 50 mg PO daily HbA1c: 8.8% (03/31/24) ASSESSMENT: 04/09: * Patient received total of 19 units of insulin, of which 10 units were basal * Fasting BSG 126 mg/dL, then recheck 224 mg/dL - unclear if possibly taken while eating * Plan to continue basal the same for now. BSGs trending down at dinner yesterday, will plan to loosen CF/CR at lunch time today 04/08: * Paloma received 31 units of insulin yesterday (10 were basal) * Fasting BSG within goal range, basal increased yesterday, continue * Novolog tightened yesterday, will continue for now and monitor for trends. * No glycemic stressors noted at this time. 04/06 * Paloma received a total of 20 units of SC insulin yesterday with poor glycemic control * BSGs: 154, 244, 247, 159 mg/dL * 3 units Lantus + 17 units Novolog * Fasting BSG = 202 mg/dL. Will increase Lantus to 5 units daily. Patient experienced hypoglycemia earlier this admission after receiving Lantus 5 units. However, given that yesterday's regimen was 85% bolus and 15 % basal, I do feel the need to increase basal. * Will also tighten correctional and carbohydrate coverage 04/04: * JACKI is an 88 year old female who originally presented to ED on 03/30/24 w/ SOB * Patient with history of poorly controlled T2DM (on orals as outpatient) * Pharmacy consulted for glycemic management on 04/04/24 due to labile blood sugars (332 mg/dL at time of consult) * Earlier this admission, patient experienced hypoglycemia with only 5 units of basal insulin * Despite current hyperglycemia, will be conservative with initial insulin dosing * current Novolog parameters are quite loose - will tighten * low-dose basal scale this evening PLAN FOR INPATIENT GLYCEMIC CONTROL: * Hold outpatient oral diabetes medications * Basal insulin * Lantus 10 units SC qAM * Bolus insulin * NovoLog per scale ACHS or Q6hrs while NPO * Goal Range: Low 120 mg/dL - High 150 mg/dL * Correction Factor: 35 mg/dL/unit * Nutritional / Prandial insulin per carb ratio of 1 unit per 8 grams CHO consumed
[2024-04-10 06:54] LABS: Calcium 8.6 mg/dl (8.6-10.3); Creatinine Clr Calc Pharmacy 10.9 ml/min; Est GFR (African American) 13.6 ml/min; Est GFR (Non-African American) 11.7 ml/min; Potassium 4.1 mmol/L (3.5-5.1)
[2024-04-10] MEDS ORDERED: PROMETHAZINE 6.25 MG/50.25 ML BAG IV PRN (07:10)
[2024-04-10] MEDS: INSULIN ASPART PER UNIT CHARGE SC SCH ×2 (08:57→12:33)
--- NOTE | 2024-04-10 09:39 | Nephrology Progress Note ---
Date of Service April 10, 2024 Assessment & Plan Admission and Anticipated Discharge Date Admission Date: March 31, 2024 Subjective Assessment & Plan (1) Acute renal failure: Plan: Patient with nonoliguric acute renal failure on CKD 3 (based on anuria) attributed to cardiorenal syndrome. Creatinine of 3.6 on 03/31 presentation from a baseline of 1.3 spring 2023. CKD attributed to HTN, advancing age and now Obstructive uropathy also. Anuria has resolved w/ diuretic trial but now urine dropping again.. h/o of urinary retention at 11/2023 admission as well. On Purewick now. Creat now worsening again with dropping urine output last few days. Now has blanchard. about 400 ml in last 5 hrss--so about 60--80 ml per hr. . No demadex today. She had yesterday She now has another episode of ATN with dropping urine output. urine started dropping even with lasix 60 qid this is not good sign. Also I am not seeing meaningful improvement in her status and unlikely to change. High risk of readmission. Given her age and frailness will be a difficult candidate for dialysis if any. I personally would not feel comfortable but She has f/u with her long time bead inspector-appt in early May--maybe defer to him but will almost certainly have to make decision before that . I discussed with her daughters as well as hospitalist and have updated the plan. (2) CHF (congestive heart failure): Plan: Patient with HF acute on chronic. Acute trigger was likely A-fib with RVR. Patient converted to sinus rhythm. Admission chest x-ray showed cardiomegaly and pulmonary edema. has responded to IV Lasix. pt taking minimal po but will start 1.5L FR no other antihypertensives at this time except low dose metoprolol but BP is good No HARRIET/ARB/ No need of Amlodipine for current BP Subjective patient is weak. urine Output now dropping again ??? with rising creat. Placed blanchard. Labs still getting worse. No SOB Review of Systems Review of Systems: All systems reviewed & are unremarkable except as noted in Subjective Physical Exam Constitutional: well developed, + thin, + frail appearing (cannnot lean forward in chair w/o asst) and cooperative; no acute distress Eyes: EOM intact bilaterally ENMT: Ears: no external ear abnormality Nose: no external nose abnormality Mouth: + dry oral mucous membranes Neck: no nuchal rigidity Respiratory: normal respiratory effort Auscultation: + diminished lung sounds (post rocha BL) and + crackles (fine, diffuse at base) Cardiovascular: Rate/Rhythm: regular rate, regular rhythm and + irregularly irregular Extremities: + edema (at most trace dependent ) Gastrointestinal (Abdomen): Inspection/Auscultation: normal bowel sounds Percussion/Palpation: abdomen soft; abdomen nontender Musculoskeletal: Extremities: gen weakness Skin: no rashes, warm and dry Psychiatric: Orientation: alert and oriented x 3 Speech: normal rate/rhythm/volume of speech Results & Data Vital Signs (Past 12 Hours) Vital Signs Temp Pulse Pulse Resp BP BP Pulse Ox 04/10/24 07:23 36.4 C L 77 19 135/70 94 04/10/24 04:01 36.6 C 80 18 118/58 L 93 04/09/24 23:06 79 04/09/24 22:20 36.6 C 84 18 124/55 L 93 O2 Del Method 04/10/24 07:23 Room Air 04/10/24 04:01 Room Air 04/09/24 23:06 04/09/24 22:20 Room Air
[2024-04-10] MEDS ORDERED: INSULIN ASPART PER UNIT CHARGE SC SCH (11:30)
[2024-04-10] MEDS: LIDOCAINE 5% 1 PATCH TD SCH (11:49)
--- NOTE | 2024-04-10 14:41 | Pharmacy Report ---
Pharmacy Glycemic Short Note 2 - Date of Service April 10, 2024 - Glycemic Short BSG Results (Last 24 hours): 04/09/24 04/09/24 04/10/24 16:04 19:52 05:44 Glucose 187 H POC Glucose 255 H 197 H 04/10/24 04/10/24 07:22 11:14 Glucose POC Glucose 235 H 285 H OUTPATIENT ANTIDIABETIC REGIMEN: * Glipizide 20 mg PO daily * Sitagliptin 50 mg PO daily HbA1c: 8.8% (03/31/24) ASSESSMENT: 04/10: * Paloma received 24 units of insulin yesterday (10 were basal) * Fasting BSG this AM elevated, concern for insulin accumulation due to serum creatinine continuing to rise, will continue current basal regimen and if still elevated tomorrow will increase * BSGs trend down in evening, will trial tighter breakfast coverage and looser coverage for other checks. BSG significantly elevated at lunch (not breakfast eaten per RN), do not want to overaggressively adjust at this time due to worsening renal function. If still trending high, will consider tighter parameters. * Goal range adjusted up due to concern for hypoglycemia associated with age and increasing serum creatinine. 04/09: * Patient received total of 19 units of insulin, of which 10 units were basal * Fasting BSG 126 mg/dL, then recheck 224 mg/dL - unclear if possibly taken while eating * Plan to continue basal the same for now. BSGs trending down at dinner yesterday, will plan to loosen CF/CR at lunch time today 04/08: * Paloma received 31 units of insulin yesterday (10 were basal) * Fasting BSG within goal range, basal increased yesterday, continue * Novolog tightened yesterday, will continue for now and monitor for trends. * No glycemic stressors noted at this time. 04/06 * Paloma received a total of 20 units of SC insulin yesterday with poor glycemic control * BSGs: 154, 244, 247, 159 mg/dL * 3 units Lantus + 17 units Novolog * Fasting BSG = 202 mg/dL. Will increase Lantus to 5 units daily. Patient experienced hypoglycemia earlier this admission after receiving Lantus 5 units. However, given that yesterday's regimen was 85% bolus and 15 % basal, I do feel the need to increase basal. * Will also tighten correctional and carbohydrate coverage 04/04: * JACKI is an 88 year old female who originally presented to ED on 03/30/24 w/ SOB * Patient with history of poorly controlled T2DM (on orals as outpatient) * Pharmacy consulted for glycemic management on 04/04/24 due to labile blood sugars (332 mg/dL at time of consult) * Earlier this admission, patient experienced hypoglycemia with only 5 units of basal insulin * Despite current hyperglycemia, will be conservative with initial insulin dosing * current Novolog parameters are quite loose - will tighten * low-dose basal scale this evening PLAN FOR INPATIENT GLYCEMIC CONTROL: * Hold outpatient oral diabetes medications * Basal insulin * Lantus 10 units SC qAM * Bolus insulin * NovoLog per scale QDB * Goal Range: Low 140 mg/dL - High 180 mg/dL * Correction Factor: 20 mg/dL/unit * Nutritional / Prandial insulin per carb ratio of 1 unit per 6 grams CHO consumed * Bolus insulin * NovoLog per scale ACHS or Q6hrs while NPO * Goal Range: Low 140 mg/dL - High 180 mg/dL * Correction Factor: 35 mg/dL/unit * Nutritional / Prandial insulin per carb ratio of 1 unit per 7 grams CHO consumed
--- NOTE | 2024-04-10 14:54 | Hospitalist Progress Note ---
Date of Service April 10, 2024 Assessment & Plan (1) CHF (congestive heart failure): Plan: Acute on chronic diastolic heart failure History of diastolic dysfunction Patient presented with increasing lower extremity swelling and shortness of breath Admitting Checks x-ray revealed cardiomegaly with pulmonary edema along with layering pleural effusion BNP elevated to 1385 Repeat chest x-ray on April 07, 2024 - improvement in pulmonary edema; left- sided pleural effusion persistent She was initially diuresed with IV Lasix 40 mg 3 times a day; reported improvement in her shortness of breath. Switch to oral torsemide starting 04/09/2024. However, her creatinine increased; diuretics currently on hold. Kent placed to monitor strict input and output. Acute renal failure On CKD Possible cardiorenal syndrome Creatinine of 3.57 on admission; baseline around 1.6 Creatinine improved to 2.5- 2.7;However now on increasing trend, currently 3.34. Diuretics currently on hold; Nephrology on board. Poor prognosis. Monitor I/O. Hypokalemia - resolved Poor appetite: since last few days per family. Pt w/ no BM last few days. increase bowel regimen. No abd pain, moving gas, trial lactulose 1 dose. Pt and her family agreeable for small dose remeron, started 04/10. monitor. Increase protein intake. Other chronic medical conditions: Continue with/resume home meds as and when able. 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 Hold Amlodipine. hyperlipidemia- on Lipitor, continue DM2 - on oral medications, suboptimal control as of recent hemoglobin A1c of 8.8 last November 2023 -Given her progression of CKD; will need to decrease the dose of glipizide at the time of discharge and continue Januvia. -f/u w/ pcp for halfway monitoring. Chronic anemia- hemoglobin at baseline DVT prophylaxis: Heparin SC DNR DispositionPT OT recommends rehab; Dtrs are agreeable for transition to rehab after discharge. Patient continues to be hospitalized due to TRACIE on CKD. She needs close monitoring of renal function for next few days. updated patient's family members at bedside, many family members present. Answered all the questions. They voiced understanding and were agreeable to plan of care. Main point of contact for them: Jessica, daughter, Nya daughter, Please note the above document was generated using voice recognition software. It may contain grammatical, syntax or spelling errors. Any formal questions or concerns about the content, text or information contained within the body of this dictation should be directly addressed to the provider for clarification Admission and Anticipated Discharge Date Admission Date: March 31, 2024 Subjective Patient seen and examined at bedside She is comfortable; not in distress At the time of exam but complained of chronic low back pain overnight and in the morning which was relieved with tramadol given in the morning. She denies any shortness of breath She reports eating Some which is closer to her baseline per her. Physical Exam Physical Exam: General- oriented x 3, not in distress, speaks in sentences with no effort or accessory muscle use Eyes- anicteric Neck- no JVD Lungs-Bilateral crackles at bases, improved Heart- normal rate, regular rhythm; no murmurs Abdomen- normal bowel sounds, nondistended, soft, nontender Extremities- no pretibial edema, no calf tenderness Neuro- alert, oriented x 3; no gross focal neurologic deficits Skin- warm & dry Results & Data Results & Data Vital Signs (Past 12 Hours) Vital Signs Temp Pulse Pulse Resp BP BP Pulse Ox 04/10/24 12:59 78 04/10/24 11:00 36.4 C L 81 17 125/76 95 04/10/24 07:23 36.4 C L 77 19 135/70 94 04/10/24 04:01 36.6 C 80 18 118/58 L 93 O2 Del Method 04/10/24 12:59 04/10/24 11:00 Room Air 04/10/24 07:23 Room Air 04/10/24 04:01 Room Air (1) CHF (congestive heart failure) Heart failure chronicity: acute on chronic Heart failure type: unspecified Qualified Code(s): I50.9 - Heart failure, unspecified
[2024-04-10] MEDS: LACTULOSE SYRUP 20 GM/30 ML UDC PO ONE (15:48)
[2024-04-10] MEDS: SOD PHOSPHATE/SOD BIPHOSPHATE ENEMA 132 ML BTL PR STA (15:53)
[2024-04-10] MEDS: MIRTAZAPINE TAB 15 MG TAB PO SCH (20:48)
[2024-04-10] MEDS: DOCUSATE SODIUM/SENNA 50/8.6MG TAB PO SCH (20:49)
[2024-04-11] MEDS: INSULIN ASPART PER UNIT CHARGE SC SCH (00:25)
[2024-04-11 02:59] LABS: Albumin Globulin Ratio 0.7 (0.9-2); Albumin Level 2.8 gm/dl (3.4-5.0); BUN Creatinine Ratio 29.2 (10-20); Bilirubin,Total 0.5 mg/dl (0.2-1.0); Calcium 8.8 mg/dl (8.6-10.3); Creatinine Clr Calc Pharmacy 10.6 ml/min; Est GFR (African American) 13.2 ml/min; Est GFR (Non-African American) 11.4 ml/min; Globulin 4.1 gm/dl (2.5-4.0); Total Protein 6.9 gm/dl (6.0-8.3)
--- NOTE | 2024-04-11 03:02 | CT Scan Report ---
Exam(s): CT HEAD Without Contrast EXAM: CT Head Without Intravenous Contrast CLINICAL HISTORY: Reason for exam: AMS. TECHNIQUE: Axial computed tomography images of the head/brain without intravenous contrast. Automated exposure control was utilized for the study. A dose lowering technique was utilized adhering to the principles of ALARA. COMPARISON: No relevant prior studies available. FINDINGS: Brain: Unremarkable. No hemorrhage. No significant white matter disease. No edema. Ventricles: Unremarkable. No ventriculomegaly. Bones/joints: Unremarkable. No acute fracture. Soft tissues: Unremarkable. Sinuses: Unremarkable as visualized. No acute sinusitis. Mastoid air cells: Unremarkable as visualized. No mastoid effusion. IMPRESSION: Normal head/brain CT. Electronically signed by: Weston Collins MD 04/11/24 03:01 AM
[2024-04-11 03:12] LABS: Base Excess ABG 10.8 mEq/L (-9-1.8); HCO3 ABG 35 mmol/L (19-24); Oxygen Saturation ABG 99.3 % (90-95); PCO2 ABG 44 mmHg (35-46); PO2 ABG 77 mmHg (80-95)
[2024-04-11 03:15] LABS: Allen Test Pos (Pos)
[2024-04-11 03:33] LABS: pH ABG 7.51 (7.35-7.45)
[2024-04-11 03:44] LABS: Basophils # (auto) 0.04 K/uL (0.00-0.20); Basophils % (auto) 0.4 %; Eosinophils % (auto) 2.2 %; Hematocrit (blood only) 27.4 % (37.0-47.0); Hemoglobin 8.5 g/dl (12.0-16.0); Immature Granulocytes # (auto) 0.03 K/uL (0.01-0.20); Immature Granulocytes % (auto) 0.3 %; Lymphocytes # (auto) 1.76 K/uL (1.20-3.40); Lymphocytes % (auto) 19.6 %; Mean Corpuscular Hemoglobin 26.2 pg (25.0-34.0); Mean Corpuscular Volume 84.3 fL (80.0-100.0); Mean Platelet Volume 8.7 fL (9.4-12.4); Monocytes # (auto) 0.68 K/uL (0.11-0.59); Monocytes % (auto) 7.6 %; Neutrophils # (auto) 6.28 K/uL (1.40-6.50); Neutrophils % (auto) 69.9 %; Platelet Count 337 K/uL (130-400); RDW Coefficient of Variation 15.3 % (11.5-14.5); RDW Standard Deviation 46.2 fL (36.4-46.3); Red Blood Count 3.25 M/uL (4.20-5.40); White Blood Count 8.99 K/ul (4.8-10.8)
[2024-04-11 03:57] LABS: Troponin I High Sensitivity 14.6 pg/ml (0-14)
[2024-04-11 06:49] LABS: Calcium 8.6 mg/dl (8.6-10.3); Est GFR (African American) 13.7 ml/min; Est GFR (Non-African American) 11.8 ml/min; Phosphorus 4.7 mg/dl (2.5-4.9); Potassium 4.1 mmol/L (3.5-5.1)
[2024-04-11] MEDS ORDERED: HYDROmorphone INJ 0.5 MG/0.5 ML SYR IV PRN (07:45)
[2024-04-11 08:36] VITALS: RESP 14
[2024-04-11] MEDS: ACETAMINOPHEN 1,000 MG/100 ML VIAL IV PRN (09:42)
--- NOTE | 2024-04-11 10:16 | Nephrology Progress Note ---
Date of Service April 11, 2024 Assessment & Plan Admission and Anticipated Discharge Date Admission Date: March 31, 2024 Subjective Assessment & Plan (1) Acute renal failure: Plan: Patient with nonoliguric acute renal failure on CKD 3 (based on anuria) attributed to cardiorenal syndrome. Creatinine of 3.6 on 03/31 presentation from a baseline of 1.3 spring 2023. CKD attributed to HTN, advancing age and now Obstructive uropathy also. Anuria has resolved w/ diuretic trial but now urine dropping again.. h/o of urinary retention at 11/2023 admission as well. On Purewick now. (2) CHF (congestive heart failure): Plan: Patient with HF acute on chronic. Acute trigger was likely A-fib with RVR. Patient converted to sinus rhythm. Admission chest x-ray showed cardiomegaly and pulmonary edema. has responded to IV Lasix. pt taking minimal po but will start 1.5L FR no other antihypertensives at this time except low dose metoprolol but BP is good She looks much worse today. lower BP. has look of imminent . explained the family about the situation. They understand the current situation and they have to come to terms with it. Also Discussed with Dr Good about comfort care now. Both me and Dr Good present during family meeting total time spent by phone, family discussion 75 mins. changed to comfort care now. No dialysis Subjective patient is very weak and now pretty much obtunded. urine Output 1100 ml. No SOB Review of Systems Review of Systems: All systems reviewed & are unremarkable except as noted in Subjective Physical Exam Constitutional: well developed, + thin, + frail appearing (cannnot lean forward in chair w/o asst) and cooperative; no acute distress Eyes: EOM intact bilaterally ENMT: Ears: no external ear abnormality Nose: no external nose abnormality Mouth: + dry oral mucous membranes Neck: no nuchal rigidity Respiratory: normal respiratory effort Auscultation: + diminished lung sounds (post rocha BL) and + crackles (fine, diffuse at base) Cardiovascular: Rate/Rhythm: regular rate, regular rhythm and + irregularly irregular Extremities: + edema (at most trace dependent ) Gastrointestinal (Abdomen): Inspection/Auscultation: normal bowel sounds Percussion/Palpation: abdomen soft; abdomen nontender Musculoskeletal: Extremities: gen weakness Skin: no rashes, warm and dry Psychiatric: Orientation: alert and oriented x 3 Speech: normal rate/rhythm/volume of speech Results & Data Vital Signs (Past 12 Hours) Vital Signs Temp Pulse Pulse Resp BP Pulse Ox O2 Del Method 04/11/24 07:24 Room Air 04/11/24 07:17 37.1 C 89 14 122/64 94 Nasal Cannula 04/11/24 03:58 36.9 C 71 16 136/66 94 Room Air 04/11/24 01:50 37.4 C 86 14 129/68 94 Room Air 04/10/24 22:45 36.5 C 67 18 131/65 95 Room Air 04/10/24 22:36 64 O2 Flow Rate 04/11/24 07:24 04/11/24 07:17 2 04/11/24 03:58 04/11/24 01:50 04/10/24 22:45 04/10/24 22:36
[2024-04-11] MEDS: bisacodyL 10 MG SUPP PR SCH (10:29)
[2024-04-11] MEDS: METOPROLOL TARTRATE 1 MG/ML VIAL IV SCH (10:29)
[2024-04-11] MEDS ORDERED: ONDANSETRON 4 MG OD TAB SL PRN (10:30)
[2024-04-11] MEDS ORDERED: haloperidoL 1 MG TAB PO PRN (10:30)
[2024-04-11] MEDS ORDERED: ONDANSETRON INJ 2 MG/ML 2 ML VIAL IV PRN (10:30)
[2024-04-11] MEDS ORDERED: MoRPHine SULFATE 10 MG/0.5 ML UDP PO PRN (10:30)
[2024-04-11] MEDS ORDERED: GLYCOPYRROLATE 0.2 MG/ML VIAL IV PRN (10:30)
[2024-04-11] MEDS ORDERED: LORazepam 0.5 MG TAB PO PRN (10:30)
--- NOTE | 2024-04-11 11:40 | Electrocardiogram Report ---
Test Reason : Blood Pressure : */* mmHG Vent. Rate : 66 BPM Atrial Rate : 65 BPM P-R Int : * ms QRS Dur : 132 ms QT Int : 480 ms P-R-T Axes : * -31 133 degrees QTcB Int : 503 ms Normal sinus rhythm Left axis deviation Left bundle branch block Abnormal ECG Confirmed by Joe Hutchins ([id number]) on 04/11/2024 11:39:41 AM Referred By: REFERRED SELF Confirmed By: Joe Hutchins
[2024-04-11] MEDS: MoRPHine SULFATE 2 MG/ML CARP IV PRN ×2 (11:57→17:11)
--- NOTE | 2024-04-11 12:56 | Hospitalist Progress Note ---
Date of Service April 11, 2024 Assessment & Plan (1) CHF (congestive heart failure): Plan: 88 yo F was being managed for the following: Acute on chronic diastolic heart failure iso History of diastolic dysfunction Acute renal failure On CKD, worsening Possible cardiorenal syndrome Hypokalemia - resolved Poor appetite Delirium Patient had overnight deterioration in mentation, ABG done with no CO2 retention, CT head with no acute finding. Patient was seen at bedside exam, was oriented x self, patient's family at bedside. Nephrology showing during family discussion. Given her worsening renal function, overall frailty including acute on chronic heart failure and now delirium and poor appetite, she has been progressively declining. Discussion was held in detail along with nephrology at bedside, the chances of having quality of life with dialysis is none to minimal. The family understands this and does not want to proceed with dialysis. Given her poor outcome the family reached to the consensus of comfort care measures. They are okay with giving her medications to make her comfortable even if it means she gets more drowsy. They do not want any further heart monitoring or labs or any other acute intervention. Hence the patient was converted to comfort care status and transferred to medical surgical mercedes. Total of 95 james gi is spent in reviewing chart/labs/discussing with the family/evaluating patient. Main point of contact for them: Jessica, daughter, Nya, daughter, Please note the above document was generated using voice recognition software. It may contain grammatical, syntax or spelling errors. Any formal questions or concerns about the content, text or information contained within the body of this dictation should be directly addressed to the provider for clarification Admission and Anticipated Discharge Date Admission Date: March 31, 2024 Subjective Patient was seen and examined at bedside. Patient's family members were present at bedside, patient does not look and appear good today. Overnight patient had altered mentation, ABG and CT head were done and fairly WNL. Patient oriented to self, able to have bilateral and symmetrically weak extremity movements noted at bedside exam. Patient denies being in pain, had been having poor appetite since last few days, appears she had better appetite last evening per dtr. No fever, blood pressure soft today. Physical Exam Physical Exam: General- appears lethargic, oriented to self, dry oral mucosa, 2L NC O2. Eyes- anicteric Neck- no JVD Lungs-Bilateral crackles at bases Heart- normal rate, regular rhythm; no murmurs Abdomen- normal bowel sounds, nondistended, soft, nontender Extremities- no pretibial edema, no calf tenderness Neuro- no gross focal neurologic deficits Skin- warm & dry Results & Data Results & Data Vital Signs (Past 12 Hours) Vital Signs Temp Pulse Pulse Resp BP Pulse Ox O2 Del Method 04/11/24 10:28 89/57 L 04/11/24 10:24 83 04/11/24 07:24 Room Air 04/11/24 07:17 37.1 C 89 14 122/64 94 Nasal Cannula 04/11/24 03:58 36.9 C 71 16 136/66 94 Room Air 04/11/24 01:50 37.4 C 86 14 129/68 94 Room Air O2 Flow Rate 04/11/24 10:28 04/11/24 10:24 04/11/24 07:24 04/11/24 07:17 2 04/11/24 03:58 04/11/24 01:50 (1) CHF (congestive heart failure) Heart failure chronicity: acute on chronic Heart failure type: unspecified Qualified Code(s): I50.9 - Heart failure, unspecified
--- NOTE | 2024-04-11 15:38 | Communication Note ---
Date of Service: April 11, 2024 Pall Med Brief Note Consult received/appreciated/chart reviewed Comfort measures underway and family meeting held with primary team and nephro patient has been moved to APPLICATIONS ENGINEER status and desires focus on symptom mgt. She has had a signif decline through this admission. I spoke with her daughter Jessica who reaffirmed the above and noted that while pt likely will not ask for medication, the family would like her treated if she appears or expresses discomfort i.e., moaning, grimacing etc. APPLICATIONS ENGINEER modified and non essential/non comfort meds/interventions d/c Dr Good updated Full consult note to follow TS 18min/No charge submitted/follow up family meeting tomorrow 0900 Thank you for allowing us to participate in the ongoing care of this patient. Please page with any additional concerns. Traci Trimble DNP Director, Palliative Medicine
[2024-04-12] MEDS: MoRPHine SULFATE 4 MG/ML 1 ML CARP\\VIAL IV PRN (09:24)
[2024-04-12] MEDS ORDERED: MoRPHine SULFATE 2 MG/ML CARP IV PRN (09:26)
--- NOTE | 2024-04-12 09:34 | Palliative Care Consultation ---
Date of Consultation April 12, 2024 Assessment & Plan (1) Dyspnea and respiratory abnormalities: Increasing dyspnea, distress and increased air hunger. Will initiate a scheduled low-dose morphine 2 mg IV every 4 hours and continue with the as needed dose of 2 mg IV every 30 minutes as needed as well as 3 mg IV every hour as needed for very severe breakthrough symptoms. (2) Agitation: I have asked nursing to give her dose of IV Ativan to see if it might help improve her agitation and restlessness. (3) Weakness generalized: (4) Need for comfort care: (5) Discussion about advance care planning held with family member: 35-minute [id number] advance care planning discussion was held with patient's 4 daughters at the bedside. Questions were answered with regards to changes expected during the dying process as well as physical symptoms that may be de monstrative of increasing distress. At their request, we specifically reviewed the changes we see when patients are actively dying. I advised Paloma is making the transition to active dying based on my evaluation today. All questions were answered to their apparent satisfaction. We talked about anticipated prognosis -I anticipate that she will in the next hours to days. Family aware. They reaffirm goal of comfort are expressed appreciation of the time spent in this explanation and discussion. They verbalized understanding with the plan of care as outlined above. (6) Palliative care by specialist: Discussed Palliative Medicine provides specialized medical care for patients with a serious illness. Plan As above Thank you for allowing us to participate in the ongoing care of this patient. Please page with any additional concerns. [facility] Director, Palliative Medicine History of Present Illness Reason for Consultation: Comfort care Attending Physician: Tiffany Good MD History of Present Illness Paloma is an 88-year-old female brought to the hospital by her family on 03/31/2024 for decreasing oral intake, progressive weakness, worsening dyspnea, increasing bilateral lower extremity edema for course of the week prior to admission. She remains compliant with home medications and denies any [id number] NSAID intake. She was brought to the emergency department for evaluation by her family and found to be in A-fib. Elevated troponin noted likely attributed to acute illness. She has decompensated heart failure with a history of progressively worsening diastolic dysfunction. 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 Cardiac history is complex and includes CAD status post CABG, valvular heart disease with a history of bioprosthetic AVR, mild MR on echo, heart retention, here for the, marked hyperglycemia, diabetes, hypokalemia, chronic anemia and hemoglobin currently at baseline. Unfortunately, through the course of this admission, Paloma has had worsening acute renal failure with nonoliguric renal failure on CKD 3. She is anuric at this time. Creatinine was 3.6 on admission. 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 She has been continuously declining through the course of this admission and family has transition patient to a comfort care plan. Paloma is seen today at bedside with her 4 daughters present. She is visibly distressed, with frowning and grimacing noted, intermittent moaning. At times she is somewhat restless in the bed and fidgeting. She is not awake or alert. She is unable to answer questions or provide HPI. The majority of the HPI was provided from chart review and the family. All four daughters report worsening symptoms overnight with increased distress. Her prn IV morphine is helping, but not lasting. Patient daughter requesting updates providers. Ms. Jessica Ahumada, contact #[phone]. Allergies Allergy/AdvReac Type Severity Reaction Status Date / Time No Known Allergies Allergy Unverified 10/12/13 18:28 Home Medications Medication Instructions Recorded Confirmed Type amlodipine 2.5 mg tablet 2.5 mg PO PM 11/03/23 03/30/24 History aspirin 81 mg tablet,delayed 81 mg PO QAM 11/03/23 03/30/24 History release atorvastatin 10 mg tablet 10 mg PO HS 11/03/23 03/30/24 History calcium carbonate 600 mg-vitamin 1 cap PO QAM 11/03/23 03/30/24 History D3 5 mcg (200 unit) capsule (Calcium 600 + D(3)) furosemide 20 mg tablet 20 mg PO DAILY PRN Edema 11/03/23 03/30/24 History gabapentin 300 mg capsule 300 mg PO HS 11/03/23 03/30/24 History gabapentin 300 mg capsule 300 mg PO QDL PRN Pain 11/03/23 03/30/24 History glipizide 10 mg tablet 20 mg PO QAM 11/03/23 03/30/24 History metoprolol succinate 25 mg 25 mg PO QAM 11/03/23 03/30/24 History tablet,extended release 24 hr vitamin with calcium 1 tab PO MOWEFR 11/03/23 03/30/24 History no.72-iron 27 mg-folic acid 1 mg tablet (M- Plus) acetaminophen 325 mg tablet 325 - 650 mg PO Q6 PRN Fever Or 03/30/24 03/30/24 History (Tylenol) Pain sitagliptin phosphate 50 mg tablet 50 mg PO QAM 03/30/24 03/30/24 History (Januvia) sodium zirconium cyclosilicate 10 10 g PO UD 03/30/24 03/30/24 History gram oral powder packet (Lokelma) Patient History Surgical History History of coronary artery bypass graft History of aortic valve replacement Family History Other Diabetes Heart disease Social History Smoking Status: Never smoker Second Hand Exposure: No; Do You Dip or Chew Tobacco: No; Tobacco Cessation Education Requested by Patient: No Hx Alcohol Use: No Hx Substance Use: No Preferred Language: Togolese Communication Ability: Effective Edging Machine Setter Required: No Beliefs That Will Affect Care: Mandaen and Spiritual Current Living Situation: Family Current Living Situation Comment: pt daughter Nadia lives with her. Feels Safe at Home: Yes Safety Concerns: Feels Safe At This Time Assistive Devices: Walker and Wheelchair Review of Systems Review of Systems: Unobtainable due to reduced consciousness Physical Exam Physical Exam: Frail, chronically ill elderly female, resting in bed, semireclined, unresponsive. Grimacing, moaning, with a furrowed brow noted. There is bitemporal wasting. Oral mucosa slightly dry. Neck is supple and without any gross JVD. There is no stridor. Increased respiratory effort with use of accessory muscles noted. Anterior lung exam is mildly diminished with a few basilar crackles. There are murmurs noted throughout the anterior chest exam. S1-S2. Abdomen is soft, nontender, bowel sounds are diminished. There is grimacing and moaning with palpation of her anterior chest wall and abdomen. Extremities with generalized weakness. Skin is pale but warm to touch. There is mild mottling changes to the lower extremities. There are mild dusky changes to the nailbeds bilaterally. She is unable to follow commands and cannot interact through this exam. Results & Data Laboratory Results 04/11/24 04/11/24 04/11/24 Range/Units 07:19 05:44 02:08 WBC 8.99 (4.8-10.8) K/ul RBC 3.25 L (4.20-5.40) M/uL Hgb 8.5 L (12.0-16.0) g/dl Hct 27.4 L (37.0-47.0) % MCV 84.3 (80.0-100.0) fL MCH 26.2 (25.0-34.0) pg MCHC 31.0 L (32.0-36.0) g/dL RDW Std Deviation 46.2 (36.4-46.3) fL RDW Coeff of Siomara 15.3 H (11.5-14.5) % Plt Count 337 (130-400) K/uL MPV 8.7 L (9.4-12.4) fL Immature Gran % (Auto) 0.3 % Neut % (Auto) 69.9 % Lymph % (Auto) 19.6 % [place] % (Auto) 7.6 % Eos % (Auto) 2.2 % Baso % (Auto) 0.4 % Neut # (Auto) 6.28 (1.40-6.50) K/uL Lymph # (Auto) 1.76 (1.20-3.40) K/uL [place] # (Auto) 0.68 H (0.11-0.59) K/uL Eos # (Auto) 0.20 (0.00-0.50) K/uL Baso # (Auto) 0.04 (0.00-0.20) K/uL Immature Gran # (Auto) 0.03 (0.01-0.20) K/uL ABG pH 7.51 H* (7.35-7.45) ABG pCO2 44 (35-46) mmHg ABG pO2 77 L (80-95) mmHg ABG HCO3 35 H (19-24) mmol/L ABG O2 Saturation 99.3 H (90-95) % ABG Base Excess 10.8 H (-9-1.8) mEq/L Sunny Test Pos (Pos) Oxygen Given ROOM AIR Sodium 139 140 (136-145) mmol/L Potassium 4.1 4.0 (3.5-5.1) mmol/L Chloride 95 L 95 L (98-107) mmol/L Carbon Dioxide 34 H 34 H (21-32) mmol/L Anion Gap 10 11 (3-11) BUN 96 H 100 H (6-23) mg/dl Creatinine 3.31 H 3.42 H (0.6-1.2) mg/dl Est Cr Clr Drug Dosing 11.0 10.6 ml/min Est GFR ( Amer) 13.7 13.2 ml/min Est GFR (Non-Af Amer) 11.8 11.4 ml/min BUN/Creatinine Ratio 29.0 H 29.2 H (10-20) Glucose 189 H 138 H (70-99(Fasting)) mg/dl POC Glucose 265 H (70-99) mg/dl Calcium 8.6 8.8 (8.6-10.3) mg/dl Phosphorus 4.7 (2.5-4.9) mg/dl Magnesium 2.0 2.0 (1.7-2.4) mg/dl Total Bilirubin 0.5 (0.2-1.0) mg/dl AST 11 L (13-39) U/L ALT 7 (7-52) U/L Alkaline Phosphatase 59 (34-104) U/L Troponin I High Sens 14.6 H (0-14) pg/ml Total Protein 6.9 (6.0-8.3) gm/dl Albumin 2.8 L (3.4-5.0) gm/dl Globulin 4.1 H (2.5-4.0) gm/dl Albumin/Globulin Ratio 0.7 L (0.9-2) 04/10/24 04/10/24 04/10/24 Range/Units 23:42 19:52 16:10 WBC (4.8-10.8) K/ul RBC (4.20-5.40) M/uL Hgb (12.0-16.0) g/dl Hct (37.0-47.0) % MCV (80.0-100.0) fL MCH (25.0-34.0) pg MCHC (32.0-36.0) g/dL RDW Std Deviation (36.4-46.3) fL RDW Coeff of Siomara (11.5-14.5) % Plt Count (130-400) K/uL MPV (9.4-12.4) fL Immature Gran % (Auto) % Neut % (Auto) % Lymph % (Auto) % [place] % (Auto) % Eos % (Auto) % Baso % (Auto) % Neut # (Auto) (1.40-6.50) K/uL Lymph # (Auto) (1.20-3.40) K/uL [place] # (Auto) (0.11-0.59) K/uL Eos # (Auto) (0.00-0.50) K/uL Baso # (Auto) (0.00-0.20) K/uL Immature Gran # (Auto) (0.01-0.20) K/uL ABG pH (7.35-7.45) ABG pCO2 (35-46) mmHg ABG pO2 (80-95) mmHg ABG HCO3 (19-24) mmol/L ABG O2 Saturation (90-95) % ABG Base Excess (-9-1.8) mEq/L Sunny Test (Pos) Oxygen Given Sodium (136-145) mmol/L Potassium (3.5-5.1) mmol/L Chloride (98-107) mmol/L Carbon Dioxide (21-32) mmol/L Anion Gap (3-11) BUN (6-23) mg/dl Creatinine (0.6-1.2) mg/dl Est Cr Clr Drug Dosing ml/min Est GFR ( Amer) ml/min Est GFR (Non-Af Amer) ml/min BUN/Creatinine Ratio (10-20) Glucose (70-99(Fasting)) mg/dl POC Glucose 147 H 255 H 220 H (70-99) mg/dl Calcium (8.6-10.3) mg/dl Phosphorus (2.5-4.9) mg/dl Magnesium (1.7-2.4) mg/dl Total Bilirubin (0.2-1.0) mg/dl AST (13-39) U/L ALT (7-52) U/L Alkaline Phosphatase (34-104) U/L Troponin I High Sens (0-14) pg/ml Total Protein (6.0-8.3) gm/dl Albumin (3.4-5.0) gm/dl Globulin (2.5-4.0) gm/dl Albumin/Globulin Ratio (0.9-2) 04/10/24 04/10/24 04/10/24 Range/Units 11:14 07:22 05:44 WBC (4.8-10.8) K/ul RBC (4.20-5.40) M/uL Hgb (12.0-16.0) g/dl Hct (37.0-47.0) % MCV (80.0-100.0) fL MCH (25.0-34.0) pg MCHC (32.0-36.0) g/dL RDW Std Deviation (36.4-46.3) fL RDW Coeff of Siomara (11.5-14.5) % Plt Count (130-400) K/uL MPV (9.4-12.4) fL Immature Gran % (Auto) % Neut % (Auto) % Lymph % (Auto) % [place] % (Auto) % Eos % (Auto) % Baso % (Auto) % Neut # (Auto) (1.40-6.50) K/uL Lymph # (Auto) (1.20-3.40) K/uL [place] # (Auto) (0.11-0.59) K/uL Eos # (Auto) (0.00-0.50) K/uL Baso # (Auto) (0.00-0.20) K/uL Immature Gran # (Auto) (0.01-0.20) K/uL ABG pH (7.35-7.45) ABG pCO2 (35-46) mmHg ABG pO2 (80-95) mmHg ABG HCO3 (19-24) mmol/L ABG O2 Saturation (90-95) % ABG Base Excess (-9-1.8) mEq/L Sunny Test (Pos) Oxygen Given Sodium 137 (136-145) mmol/L Potassium 4.1 (3.5-5.1) mmol/L Chloride 93 L (98-107) mmol/L Carbon Dioxide 34 H (21-32) mmol/L Anion Gap 10 (3-11) BUN 87 H (6-23) mg/dl Creatinine 3.34 H (0.6-1.2) mg/dl Est Cr Clr Drug Dosing 10.9 ml/min Est GFR ( Amer) 13.6 ml/min Est GFR (Non-Af Amer) 11.7 ml/min BUN/Creatinine Ratio 26.0 H (10-20) Glucose 187 H (70-99(Fasting)) mg/dl POC Glucose 285 H 235 H (70-99) mg/dl Calcium 8.6 (8.6-10.3) mg/dl Phosphorus (2.5-4.9) mg/dl Magnesium (1.7-2.4) mg/dl Total Bilirubin (0.2-1.0) mg/dl AST (13-39) U/L ALT (7-52) U/L Alkaline Phosphatase (34-104) U/L Troponin I High Sens (0-14) pg/ml Total Protein (6.0-8.3) gm/dl Albumin (3.4-5.0) gm/dl Globulin (2.5-4.0) gm/dl Albumin/Globulin Ratio (0.9-2) 04/09/24 04/09/24 04/09/24 Range/Units 19:52 16:04 11:04 WBC (4.8-10.8) K/ul RBC (4.20-5.40) M/uL Hgb (12.0-16.0) g/dl Hct (37.0-47.0) % MCV (80.0-100.0) fL MCH (25.0-34.0) pg MCHC (32.0-36.0) g/dL RDW Std Deviation (36.4-46.3) fL RDW Coeff of Siomara (11.5-14.5) % Plt Count (130-400) K/uL MPV (9.4-12.4) fL Immature Gran % (Auto) % Neut % (Auto) % Lymph % (Auto) % [place] % (Auto) % Eos % (Auto) % Baso % (Auto) % Neut # (Auto) (1.40-6.50) K/uL Lymph # (Auto) (1.20-3.40) K/uL [place] # (Auto) (0.11-0.59) K/uL Eos # (Auto) (0.00-0.50) K/uL Baso # (Auto) (0.00-0.20) K/uL Immature Gran # (Auto) (0.01-0.20) K/uL ABG pH (7.35-7.45) ABG pCO2 (35-46) mmHg ABG pO2 (80-95) mmHg ABG HCO3 (19-24) mmol/L ABG O2 Saturation (90-95) % ABG Base Excess (-9-1.8) mEq/L Sunny Test (Pos) Oxygen Given Sodium (136-145) mmol/L Potassium (3.5-5.1) mmol/L Chloride (98-107) mmol/L Carbon Dioxide (21-32) mmol/L Anion Gap (3-11) BUN (6-23) mg/dl Creatinine (0.6-1.2) mg/dl Est Cr Clr Drug Dosing ml/min Est GFR ( Amer) ml/min Est GFR (Non-Af Amer) ml/min BUN/Creatinine Ratio (10-20) Glucose (70-99(Fasting)) mg/dl POC Glucose 197 H 255 H 195 H (70-99) mg/dl Calcium (8.6-10.3) mg/dl Phosphorus (2.5-4.9) mg/dl Magnesium (1.7-2.4) mg/dl Total Bilirubin (0.2-1.0) mg/dl AST (13-39) U/L ALT (7-52) U/L Alkaline Phosphatase (34-104) U/L Troponin I High Sens (0-14) pg/ml Total Protein (6.0-8.3) gm/dl Albumin (3.4-5.0) gm/dl Globulin (2.5-4.0) gm/dl Albumin/Globulin Ratio (0.9-2) 04/09/24 04/09/24 04/08/24 Range/Units 07:18 05:43 19:44 WBC (4.8-10.8) K/ul RBC (4.20-5.40) M/uL Hgb (12.0-16.0) g/dl Hct (37.0-47.0) % MCV (80.0-100.0) fL MCH (25.0-34.0) pg MCHC (32.0-36.0) g/dL RDW Std Deviation (36.4-46.3) fL RDW Coeff of Siomara (11.5-14.5) % Plt Count (130-400) K/uL MPV (9.4-12.4) fL Immature Gran % (Auto) % Neut % (Auto) % Lymph % (Auto) % [place] % (Auto) % Eos % (Auto) % Baso % (Auto) % Neut # (Auto) (1.40-6.50) K/uL Lymph # (Auto) (1.20-3.40) K/uL [place] # (Auto) (0.11-0.59) K/uL Eos # (Auto) (0.00-0.50) K/uL Baso # (Auto) (0.00-0.20) K/uL Immature Gran # (Auto) (0.01-0.20) K/uL ABG pH (7.35-7.45) ABG pCO2 (35-46) mmHg ABG pO2 (80-95) mmHg ABG HCO3 (19-24) mmol/L ABG O2 Saturation (90-95) % ABG Base Excess (-9-1.8) mEq/L Sunny Test (Pos) Oxygen Given Sodium 136 (136-145) mmol/L Potassium 4.2 (3.5-5.1) mmol/L Chloride 92 L (98-107) mmol/L Carbon Dioxide 35 H (21-32) mmol/L Anion Gap 9 (3-11) BUN 73 H (6-23) mg/dl Creatinine 3.12 H D (0.6-1.2) mg/dl Est Cr Clr Drug Dosing 11.7 ml/min Est GFR ( Amer) 14.7 ml/min Est GFR (Non-Af Amer) 12.7 ml/min BUN/Creatinine Ratio 23.4 H (10-20) Glucose 126 H (70-99(Fasting)) mg/dl POC Glucose 224 H 154 H (70-99) mg/dl Calcium 8.5 L (8.6-10.3) mg/dl Phosphorus (2.5-4.9) mg/dl Magnesium (1.7-2.4) mg/dl Total Bilirubin (0.2-1.0) mg/dl AST (13-39) U/L ALT (7-52) U/L Alkaline Phosphatase (34-104) U/L Troponin I High Sens (0-14) pg/ml Total Protein (6.0-8.3) gm/dl Albumin (3.4-5.0) gm/dl Globulin (2.5-4.0) gm/dl Albumin/Globulin Ratio (0.9-2) 04/08/24 04/08/24 04/08/24 Range/Units 16:31 11:38 07:53 WBC (4.8-10.8) K/ul RBC (4.20-5.40) M/uL Hgb (12.0-16.0) g/dl Hct (37.0-47.0) % MCV (80.0-100.0) fL MCH (25.0-34.0) pg MCHC (32.0-36.0) g/dL RDW Std Deviation (36.4-46.3) fL RDW Coeff of Siomara (11.5-14.5) % Plt Count (130-400) K/uL MPV (9.4-12.4) fL Immature Gran % (Auto) % Neut % (Auto) % Lymph % (Auto) % [place] % (Auto) % Eos % (Auto) % Baso % (Auto) % Neut # (Auto) (1.40-6.50) K/uL Lymph # (Auto) (1.20-3.40) K/uL [place] # (Auto) (0.11-0.59) K/uL Eos # (Auto) (0.00-0.50) K/uL Baso # (Auto) (0.00-0.20) K/uL Immature Gran # (Auto) (0.01-0.20) K/uL ABG pH (7.35-7.45) ABG pCO2 (35-46) mmHg ABG pO2 (80-95) mmHg ABG HCO3 (19-24) mmol/L ABG O2 Saturation (90-95) % ABG Base Excess (-9-1.8) mEq/L Sunny Test (Pos) Oxygen Given Sodium (136-145) mmol/L Potassium (3.5-5.1) mmol/L Chloride (98-107) mmol/L Carbon Dioxide (21-32) mmol/L Anion Gap (3-11) BUN (6-23) mg/dl Creatinine (0.6-1.2) mg/dl Est Cr Clr Drug Dosing ml/min Est GFR ( Amer) ml/min Est GFR (Non-Af Amer) ml/min BUN/Creatinine Ratio (10-20) Glucose (70-99(Fasting)) mg/dl POC Glucose 79 181 H 133 H (70-99) mg/dl Calcium (8.6-10.3) mg/dl Phosphorus (2.5-4.9) mg/dl Magnesium (1.7-2.4) mg/dl Total Bilirubin (0.2-1.0) mg/dl AST (13-39) U/L ALT (7-52) U/L Alkaline Phosphatase (34-104) U/L Troponin I High Sens (0-14) pg/ml Total Protein (6.0-8.3) gm/dl Albumin (3.4-5.0) gm/dl Globulin (2.5-4.0) gm/dl Albumin/Globulin Ratio (0.9-2) 04/08/24 04/07/24 04/07/24 Range/Units 07:34 21:17 16:13 WBC (4.8-10.8) K/ul RBC (4.20-5.40) M/uL Hgb (12.0-16.0) g/dl Hct (37.0-47.0) % MCV (80.0-100.0) fL MCH (25.0-34.0) pg MCHC (32.0-36.0) g/dL RDW Std Deviation (36.4-46.3) fL RDW Coeff of Siomara (11.5-14.5) % Plt Count (130-400) K/uL MPV (9.4-12.4) fL Immature Gran % (Auto) % Neut % (Auto) % Lymph % (Auto) % [place] % (Auto) % Eos % (Auto) % Baso % (Auto) % Neut # (Auto) (1.40-6.50) K/uL Lymph # (Auto) (1.20-3.40) K/uL [place] # (Auto) (0.11-0.59) K/uL Eos # (Auto) (0.00-0.50) K/uL Baso # (Auto) (0.00-0.20) K/uL Immature Gran # (Auto) (0.01-0.20) K/uL ABG pH (7.35-7.45) ABG pCO2 (35-46) mmHg ABG pO2 (80-95) mmHg ABG HCO3 (19-24) mmol/L ABG O2 Saturation (90-95) % ABG Base Excess (-9-1.8) mEq/L Sunny Test (Pos) Oxygen Given Sodium 135 L (136-145) mmol/L Potassium 4.2 (3.5-5.1) mmol/L Chloride 91 L (98-107) mmol/L Carbon Dioxide 36 H (21-32) mmol/L Anion Gap 8 (3-11) BUN 66 H (6-23) mg/dl Creatinine 2.72 H (0.6-1.2) mg/dl Est Cr Clr Drug Dosing 13.4 ml/min Est GFR ( Amer) 17.4 ml/min Est GFR (Non-Af Amer) 15.0 ml/min BUN/Creatinine Ratio 24.3 H (10-20) Glucose 110 H (70-99(Fasting)) mg/dl POC Glucose 89 145 H (70-99) mg/dl Calcium 8.3 L (8.6-10.3) mg/dl Phosphorus (2.5-4.9) mg/dl Magnesium (1.7-2.4) mg/dl Total Bilirubin (0.2-1.0) mg/dl AST (13-39) U/L ALT (7-52) U/L Alkaline Phosphatase (34-104) U/L Troponin I High Sens (0-14) pg/ml Total Protein (6.0-8.3) gm/dl Albumin (3.4-5.0) gm/dl Globulin (2.5-4.0) gm/dl Albumin/Globulin Ratio (0.9-2) 04/07/24 04/07/24 04/07/24 Range/Units 11:42 07:27 04:32 WBC (4.8-10.8) K/ul RBC (4.20-5.40) M/uL Hgb (12.0-16.0) g/dl Hct (37.0-47.0) % MCV (80.0-100.0) fL MCH (25.0-34.0) pg MCHC (32.0-36.0) g/dL RDW Std Deviation (36.4-46.3) fL RDW Coeff of Siomara (11.5-14.5) % Plt Count (130-400) K/uL MPV (9.4-12.4) fL Immature Gran % (Auto) % Neut % (Auto) % Lymph % (Auto) % [place] % (Auto) % Eos % (Auto) % Baso % (Auto) % Neut # (Auto) (1.40-6.50) K/uL Lymph # (Auto) (1.20-3.40) K/uL [place] # (Auto) (0.11-0.59) K/uL Eos # (Auto) (0.00-0.50) K/uL Baso # (Auto) (0.00-0.20) K/uL Immature Gran # (Auto) (0.01-0.20) K/uL ABG pH (7.35-7.45) ABG pCO2 (35-46) mmHg ABG pO2 (80-95) mmHg ABG HCO3 (19-24) mmol/L ABG O2 Saturation (90-95) % ABG Base Excess (-9-1.8) mEq/L Sunny Test (Pos) Oxygen Given Sodium 134 L (136-145) mmol/L Potassium 4.5 (3.5-5.1) mmol/L Chloride 91 L (98-107) mmol/L Carbon Dioxide 35 H (21-32) mmol/L Anion Gap 8 (3-11) BUN 65 H (6-23) mg/dl Creatinine 2.63 H (0.6-1.2) mg/dl Est Cr Clr Drug Dosing 13.8 ml/min Est GFR ( Amer) 18.1 ml/min Est GFR (Non-Af Amer) 15.6 ml/min BUN/Creatinine Ratio 24.7 H (10-20) Glucose 162 H (70-99(Fasting)) mg/dl POC Glucose 260 H 228 H (70-99) mg/dl Calcium 8.3 L (8.6-10.3) mg/dl Phosphorus (2.5-4.9) mg/dl Magnesium (1.7-2.4) mg/dl Total Bilirubin (0.2-1.0) mg/dl AST (13-39) U/L ALT (7-52) U/L Alkaline Phosphatase (34-104) U/L Troponin I High Sens (0-14) pg/ml Total Protein (6.0-8.3) gm/dl Albumin (3.4-5.0) gm/dl Globulin (2.5-4.0) gm/dl Albumin/Globulin Ratio (0.9-2) 04/06/24 04/06/24 04/06/24 Range/Units 19:57 16:21 11:17 WBC (4.8-10.8) K/ul RBC (4.20-5.40) M/uL Hgb (12.0-16.0) g/dl Hct (37.0-47.0) % MCV (80.0-100.0) fL MCH (25.0-34.0) pg MCHC (32.0-36.0) g/dL RDW Std Deviation (36.4-46.3) fL RDW Coeff of Siomara (11.5-14.5) % Plt Count (130-400) K/uL MPV (9.4-12.4) fL Immature Gran % (Auto) % Neut % (Auto) % Lymph % (Auto) % [place] % (Auto) % Eos % (Auto) % Baso % (Auto) % Neut # (Auto) (1.40-6.50) K/uL Lymph # (Auto) (1.20-3.40) K/uL [place] # (Auto) (0.11-0.59) K/uL Eos # (Auto) (0.00-0.50) K/uL Baso # (Auto) (0.00-0.20) K/uL Immature Gran # (Auto) (0.01-0.20) K/uL ABG pH (7.35-7.45) ABG pCO2 (35-46) mmHg ABG pO2 (80-95) mmHg ABG HCO3 (19-24) mmol/L ABG O2 Saturation (90-95) % ABG Base Excess (-9-1.8) mEq/L Sunny Test (Pos) Oxygen Given Sodium (136-145) mmol/L Potassium (3.5-5.1) mmol/L Chloride (98-107) mmol/L Carbon Dioxide (21-32) mmol/L Anion Gap (3-11) BUN (6-23) mg/dl Creatinine (0.6-1.2) mg/dl Est Cr Clr Drug Dosing ml/min Est GFR ( Amer) ml/min Est GFR (Non-Af Amer) ml/min BUN/Creatinine Ratio (10-20) Glucose (70-99(Fasting)) mg/dl POC Glucose 224 H 231 H 218 H (70-99) mg/dl Calcium (8.6-10.3) mg/dl Phosphorus (2.5-4.9) mg/dl Magnesium (1.7-2.4) mg/dl Total Bilirubin (0.2-1.0) mg/dl AST (13-39) U/L ALT (7-52) U/L Alkaline Phosphatase (34-104) U/L Troponin I High Sens (0-14) pg/ml Total Protein (6.0-8.3) gm/dl Albumin (3.4-5.0) gm/dl Globulin (2.5-4.0) gm/dl Albumin/Globulin Ratio (0.9-2) 04/06/24 04/06/24 04/05/24 Range/Units 07:21 05:49 20:26 WBC (4.8-10.8) K/ul RBC (4.20-5.40) M/uL Hgb (12.0-16.0) g/dl Hct (37.0-47.0) % MCV (80.0-100.0) fL MCH (25.0-34.0) pg MCHC (32.0-36.0) g/dL RDW Std Deviation (36.4-46.3) fL RDW Coeff of Siomara (11.5-14.5) % Plt Count (130-400) K/uL MPV (9.4-12.4) fL Immature Gran % (Auto) % Neut % (Auto) % Lymph % (Auto) % [place] % (Auto) % Eos % (Auto) % Baso % (Auto) % Neut # (Auto) (1.40-6.50) K/uL Lymph # (Auto) (1.20-3.40) K/uL [place] # (Auto) (0.11-0.59) K/uL Eos # (Auto) (0.00-0.50) K/uL Baso # (Auto) (0.00-0.20) K/uL Immature Gran # (Auto) (0.01-0.20) K/uL ABG pH (7.35-7.45) ABG pCO2 (35-46) mmHg ABG pO2 (80-95) mmHg ABG HCO3 (19-24) mmol/L ABG O2 Saturation (90-95) % ABG Base Excess (-9-1.8) mEq/L Sunny Test (Pos) Oxygen Given Sodium 135 L (136-145) mmol/L Potassium 4.5 (3.5-5.1) mmol/L Chloride 92 L (98-107) mmol/L Carbon Dioxide 35 H (21-32) mmol/L Anion Gap 8 (3-11) BUN 60 H (6-23) mg/dl Creatinine 2.58 H (0.6-1.2) mg/dl Est Cr Clr Drug Dosing 14.1 ml/min Est GFR ( Amer) 18.5 ml/min Est GFR (Non-Af Amer) 16.0 ml/min BUN/Creatinine Ratio 23.3 H (10-20) Glucose 191 H (70-99(Fasting)) mg/dl POC Glucose 202 H 159 H (70-99) mg/dl Calcium 8.2 L (8.6-10.3) mg/dl Phosphorus (2.5-4.9) mg/dl Magnesium (1.7-2.4) mg/dl Total Bilirubin (0.2-1.0) mg/dl AST (13-39) U/L ALT (7-52) U/L Alkaline Phosphatase (34-104) U/L Troponin I High Sens (0-14) pg/ml Total Protein (6.0-8.3) gm/dl Albumin (3.4-5.0) gm/dl Globulin (2.5-4.0) gm/dl Albumin/Globulin Ratio (0.9-2) 04/05/24 04/05/24 Range/Units 16:24 11:33 WBC (4.8-10.8) K/ul RBC (4.20-5.40) M/uL Hgb (12.0-16.0) g/dl Hct (37.0-47.0) % MCV (80.0-100.0) fL MCH (25.0-34.0) pg MCHC (32.0-36.0) g/dL RDW Std Deviation (36.4-46.3) fL RDW Coeff of Siomara (11.5-14.5) % Plt Count (130-400) K/uL MPV (9.4-12.4) fL Immature Gran % (Auto) % Neut % (Auto) % Lymph % (Auto) % [place] % (Auto) % Eos % (Auto) % Baso % (Auto) % Neut # (Auto) (1.40-6.50) K/uL Lymph # (Auto) (1.20-3.40) K/uL [place] # (Auto) (0.11-0.59) K/uL Eos # (Auto) (0.00-0.50) K/uL Baso # (Auto) (0.00-0.20) K/uL Immature Gran # (Auto) (0.01-0.20) K/uL ABG pH (7.35-7.45) ABG pCO2 (35-46) mmHg ABG pO2 (80-95) mmHg ABG HCO3 (19-24) mmol/L ABG O2 Saturation (90-95) % ABG Base Excess (-9-1.8) mEq/L Sunny Test (Pos) Oxygen Given Sodium (136-145) mmol/L Potassium (3.5-5.1) mmol/L Chloride (98-107) mmol/L Carbon Dioxide (21-32) mmol/L Anion Gap (3-11) BUN (6-23) mg/dl Creatinine (0.6-1.2) mg/dl Est Cr Clr Drug Dosing ml/min Est GFR ( Amer) ml/min Est GFR (Non-Af Amer) ml/min BUN/Creatinine Ratio (10-20) Glucose (70-99(Fasting)) mg/dl POC Glucose 247 H 244 H (70-99) mg/dl Calcium (8.6-10.3) mg/dl Phosphorus (2.5-4.9) mg/dl Magnesium (1.7-2.4) mg/dl Total Bilirubin (0.2-1.0) mg/dl AST (13-39) U/L ALT (7-52) U/L Alkaline Phosphatase (34-104) U/L Troponin I High Sens (0-14) pg/ml Total Protein (6.0-8.3) gm/dl Albumin (3.4-5.0) gm/dl Globulin (2.5-4.0) gm/dl Albumin/Globulin Ratio (0.9-2) Diagnostic Findings Chest X-Ray 03/30/24 19:51 XR chest 1V portable HISTORY: 88 years-old Female Chest pain, nonspecific COMPARISON: 11/03/2023 TECHNIQUE: AP view of the chest FINDINGS: Cardiac silhouette is enlarged. Median sternotomy. Pulmonary vascular congestion with interstitial coarsening. Layering pleural effusions with bibasilar consolidation. No pneumothorax. Bones appear grossly intact. IMPRESSION: 1. Cardiomegaly with pulmonary edema. 2. Layering pleural effusions with bibasilar consolidation. ACT 112: Negative or not required by law. The above report was generated using voice recognition software. It may contain grammatical, syntax or spelling errors. Electronically signed by: Gerry Rg M.D. 03/31/2024 8:15 AM Renal Ultrasound 03/31/24 04:19 RENAL ULTRASOUND HISTORY: Acute on chronic kidney disease. COMPARISON: Abdomen and pelvis CT 11/03/2023. FINDINGS: Right kidney: 11.6 cm. Severe hydronephrosis, unchanged. Marked cortical thinning again noted. Left kidney: 10.6 cm. Moderate hydronephrosis, unchanged. Mild cortical thinn ing. Bladder: Bladder wall thickening again noted. The ureteral jets were not identified. IMPRESSION: 1. No significant change in the severe right and moderate left hydronephrosis. 2. Persistent bladder wall thickening. ACT 112: Negative or not required by law. Electronically signed by: Willis Patel M.D. 04/01/2024 7:01 AM Chest X-Ray 04/03/24 10:10 XR chest 2V PA/lateral HISTORY: 88 years-old Female f/u vasc congestion/ pl effusions acute shortness breath COMPARISON: 03/30/2024 TECHNIQUE: AP and lateral views of the chest FINDINGS: Cardiac silhouette is enlarged. Median sternotomy with cardiac valvular prosthesis. Atherosclerosis of the aorta. No pneumothorax. Pulmonary vascular congestion with interstitial coarsening redemonstrated. Layering pleural effusions with unchanged bibasilar densities. Bones appear grossly intact. IMPRESSION: 1. Cardiomegaly with unchanged pulmonary edema. 2. Stable layering pleural effusions with bibasilar densities. ACT 112: Negative or not required by law. The above report was generated using voice recognition software. It may contain grammatical, syntax or spelling errors. Electronically signed by: Gerry Rg M.D. 04/03/2024 11:54 AM Chest X-Ray 04/07/24 09:06 XR chest 2V PA/lateral HISTORY: Congestive heart failure. Shortness of breath. COMPARISON: Chest 04/03/2024. FINDINGS: No pneumothorax. Small bilateral pleural effusions most pronounced on the right are again noted. There is mild central pulmonary vascular congestion without overt edema. This has slightly improved. The heart remains mildly enlarged. There are poststernotomy changes and a cardiac valve prosthesis again noted. Bibasilar linear densities favor atelectasis. The upper lung zones are clear. IMPRESSION: 1. Cardiomegaly with mild pulmonary vascular congestion. This has slightly improved. 2. Small bilateral pleural effusions and bibasilar densities persist. ACT 112: Negative or not required by law. Electronically signed by: Willis Patel M.D. 04/07/2024 10:[address] 04/11/24 01:53 Exam(s): CT HEAD Without Contrast EXAM: CT Head Without Intravenous Contrast CLINICAL HISTORY: Reason for exam: AMS. TECHNIQUE: Axial computed tomography images of the head/brain without intravenous contrast. Automated exposure control was utilized for the study. A dose lowering technique was utilized adhering to the principles of ALARA. COMPARISON: No relevant prior studies available. FINDINGS: Brain: Unremarkable. No hemorrhage. No significant white matter disease. No edema. Ventricles: Unremarkable. No ventriculomegaly. Bones/joints: Unremarkable. No acute fracture. Soft tissues: Unremarkable. Sinuses: Unremarkable as visualized. No acute sinusitis. Mastoid air cells: Unremarkable as visualized. No mastoid effusion. IMPRESSION: Normal head/brain CT. Electronically signed by: Weston Collins MD 04/11/24 03:01 AM PG Care Time/CCT Total # of Minutes Spent Total Time Spent with Patient: Total time spent is greater than 50% in coordination of care (as documented) at patient's floor/unit and/or counseling patient: I spent 90 minutes overall addressing this case: 15 min in medical data review/discussion with referring provider(s) and/or preparation for the visit 15 min in direct interaction with the patient/exam 30 min in Advance Care Planning/Goals of Care discussions as detailed above in note (must be >16min) 15 min in subsequent review and synthesis of assessment and plan 15 min communicating with other providers regarding the patient's case: nursing and primary team Advanced Care Planning 29491 Advanced Care Planning 30 [place] [address] IN/OBS CONSULT LVL 4,60M (25 - SIGNIFICANT, SEPARATELY IDENTIFIABLE ) Patient Type New Diagnoses Dyspnea and respiratory abnormalities R06.00; R06.89 Agitation R45.1 Weakness generalized R53.1 Need for comfort care Discussion about advance care planning held with family member Z71.0 Palliative care by specialist Z51.5 Additional Codes Advanced Care Planning - 52719 Advanced Care Planning 30 Min: 61401 Advanced Care Planning 30 Min ([id number])
[2024-04-12] MEDS: LORazepam 0.5 MG in SYRINGE 0.25 ML IV PRN (09:45)
[2024-04-12] MEDS: MoRPHine SULFATE 2 MG/ML CARP IV SCH (09:50)
--- NOTE | 2024-04-12 11:41 | Hospitalist Progress Note ---
Date of Service April 12, 2024 Assessment & Plan (1) CHF (congestive heart failure): Plan: 88 yo F was being managed for the following: Acute on chronic diastolic heart failure iso History of diastolic dysfunction Acute renal failure On CKD, worsening Possible cardiorenal syndrome Hypokalemia - resolved Poor appetite Delirium Pt has been comfort care status since 04/11. Prn meds on board. pt appears comfortable. pt's dtrs at bedside. Main point of contact for them: Jessica, daughter, Nya, daughter, Please note the above document was generated using voice recognition software. It may contain grammatical, syntax or spelling errors. Any formal questions or concerns about the content, text or information contained within the body of this dictation should be directly addressed to the provider for clarification Admission and Anticipated Discharge Date Admission Date: March 31, 2024 Subjective Patient was seen and examined at bedside. Patient's family members were present at bedside, patient resting comfortably and sleeping, had gotten ativan just prior to my arrival which made her comfortable and calm per family member. ROS not able. Physical Exam Physical Exam: General- sleeping, dry oral mucosa, 2L NC O2. Eyes- anicteric Neck- no JVD Lungs-Bilateral crackles at bases Heart- normal rate, regular rhythm; no murmurs Abdomen- normal bowel sounds, nondistended, soft Extremities- no pretibial edema, no calf tenderness Neuro- not assessed. Skin- warm & dry Results & Data Results & Data Vital Signs (Past 12 Hours) Vital Signs O2 Del Method O2 Flow Rate 04/12/24 07:45 Nasal Cannula 2 (1) CHF (congestive heart failure) Heart failure chronicity: acute on chronic Heart failure type: unspecified Qualified Code(s): I50.9 - Heart failure, unspecified
[2024-04-12] MEDS: GLYCOPYRROLATE 0.2 MG/ML VIAL IV PRN (15:16)
--- NOTE | 2024-04-13 11:45 | Hospitalist Progress Note ---
Date of Service April 13, 2024 Assessment & Plan (1) CHF (congestive heart failure): Plan: 88 yo F was being managed for the following: Acute on chronic diastolic heart failure iso History of diastolic dysfunction Acute renal failure On CKD, worsening Possible cardiorenal syndrome Hypokalemia - resolved Poor appetite Delirium Pt has been comfort care status since 04/11. Prn and jax comfort meds on board. pt appears comfortable. pt's dtrs at bedside. Main point of contact for them: Jessica, daughter, Nya, daughter, Please note the above document was generated using voice recognition software. It may contain grammatical, syntax or spelling errors. Any formal questions or concerns about the content, text or information contained within the body of this dictation should be directly addressed to the provider for clarification Admission and Anticipated Discharge Date Admission Date: March 31, 2024 Subjective Patient was seen and examined at bedside. Patient's family members were present at bedside, patient resting comfortably and sleeping, ROS not able. Physical Exam Physical Exam: General- sleeping, dry oral mucosa, 1L NC O2. Eyes- anicteric Neck- no JVD Lungs-Bilateral crackles at bases Heart- normal rate, regular rhythm; no murmurs Abdomen- normal bowel sounds, nondistended, soft Extremities- no pretibial edema, no calf tenderness Neuro- not assessed. Skin- warm & dry (1) CHF (congestive heart failure) Heart failure chronicity: acute on chronic Heart failure type: unspecified Qualified Code(s): I50.9 - Heart failure, unspecified
[2024-04-13 12:53] VITALS: BP 100/44; PULSE 89; TEMP 98.8; O2SAT 94
--- NOTE | 2024-04-14 11:18 | Death Pronouncement Note ---
Date of Service April 14, 2024 Pronouncement Note Admission Date March 31, 2024 Date and Time of Date of : 04/14/24 Time of : 09:48 Contributing Factors Cause of : acute hypoxic respiratory failure secondary to cardiorenal syndrome secondary to worsening stage IV CKD. Summary see DC summary. Additional Data Confirmation of : no pulse, no respirations, no heart sounds and pupils fixed and dilated Pronouncement Performed By: Attending Physician Family: at bedside Attending physician: Tiffany Good MD Was code activated?: No Autopsy requested?: No workers' compensation claims examiner notified?: No Organ bank notified?: No
--- NOTE | 2024-04-14 11:25 | Discharge Summary ---
Date of Service April 14, 2024 Admission HPI Per Admitting Provider History obtained from patient, family, and records. Medical history significant for chronic diastolic heart failure (EF 55%, TTE 2023), CAD status post CABG, valvular heart disease (history of bioprosthetic AVR, mild MR), hypertension, hyperlipidemia, CRI (baseline creatinine 1.6), history of bilateral hydronephrosis as per records, chronic anemia (baseline hemoglobin 8-9), DM2 on oral medications. Last confinement November 2023 for CHF and bilateral hydronephrosis. Hyperkalemia and kidney dysfunction also noted during confinement. Patient discharged home with Kent catheter. Kent catheter shortly removed on outpatient urology visit. Patient noted to have increased leg swelling the last week as per family. Compliant with home medications. Denies OTC NSAID intake. Increasing shortness of breath noted yesterday without cough or chest pain symptoms. Patient brought to ER for evaluation. Patient noted to be in A-fib upon arrival at the ER. BSG 300s at the ER. IV Lasix administered at the ER. Medical History as above Surgical History : CABG, BTL, bioprosthetic AVR Family History : Heart disease, DM Personal/Social history : Non-smoker, no EtOH intake, retired [employer] Admission Exam Per Admitting Provider GENERAL: Comfortable, pleasant, slightly anxious, no respiratory distress SKIN: Pallor, warm HEENT: Bespectacled, pale palpebral conjunctivae, no ptosis, dry buccal mucosa NECK : Supple, no tenderness CHEST : Decreased breath sounds, no tenderness HEART : Irregular, systolic murmur ABDOMEN: Some distention, nontender EXTREMITIES : Bilateral LE swelling (right greater than left), without tenderness, no other conspicuous deformities noted NEUROLOGIC : Coherent, no facial asymmetry, no other gross focality Principal Diagnosis worsening renal failure Discharge Exam Pupils fixed and dilated no respiration sounds no heart sounds dry oral mucosa No pupillary reflex. Discharge Data Allergies Allergy/AdvReac Type Severity Reaction Status Date / Time No Known Allergies Allergy Unverified 10/12/13 18:28 Consultations 03/30/24 20:48 ED Decision to Admit Stat 03/31/24 02:28 HIM [Consult Health Information Management] Routine 03/31/24 03:49 Consult Cardiology Routine Consult Nephrology Routine 04/11/24 10:30 Consult Palliative Care Routine Ordered Studies 03/31/24 04:19 US Renal Bladder [US renal/blad retro comp] Urgent 04/11/24 01:53 CT head/brain wo con Urgent Hospital Course (1) CHF (congestive heart failure): 88 yo F was being managed for the following: Acute on chronic diastolic heart failure iso History of diastolic dysfunction Acute renal failure On CKD, worsening Possible cardiorenal syndrome Hypokalemia - resolved Poor appetite Delirium Pt has been comfort care status since 04/11. Pt today. Pt 04/14/2024 at 0948 AM. Cause of : Acute hypoxic respiratory failure secondary to cardiorenal syndrome secondary worsening stage IV CKD Pt's dtr was at bedside. Main point of contact for them: Jessica, daughter, Nya, daughter, Please note the above document was generated using voice recognition software. It may contain grammatical, syntax or spelling errors. Any formal questions or concerns about the content, text or information contained within the body of this dictation should be directly addressed to the provider for clarification Home Health Attestation I certify that this patient is under my care and that I, or a physicians legal assistant working with me, had a face to-face encounter that meets the home health [id number] encounter requirements with this patient. The encounter with the patient was in whole, or in part, for the following medical condition, which is the primary reason for home health care (list medical condition): [id number] I certify that, based on my findings, the following services are medically necessary home health services: My clinical findings support the need for the above services because: OT Assess ADL Status and Restore Function w ADLs PT Assessment for Endurance / Balance / Strength PT Eval for Safety and Mobility PT Eval for Safety, Gait Training, Assistive Devices PT Gait and Balance Training, Strengthening and Safety Skilled Nsg Assessment Further, I certify that my clinical findings support that this patient is homebound (i.e. absences from home require considerable and taxing effort and are for medical reasons or protestant services or infrequently or of short duration when for other reasons) because: Supportive Aid - Walker Transportation Assistance/Unable to Leave Home Unassisted Certification for Home Health Services: Based on the above findings, I certify that this patient is confined to the home and needs intermittent residential care, physical therapy and/or speech therapy or continues to need occupational therapy. The patient is under my care, and I have initiated the establishment of the plan of care. This patient will be followed by a physician who will periodically review the plan of care. Total Time Total Time Spent Total Time Spent (In Minutes): 40 Discharge Plan Discharge Items Patient Disposition: Discharge Diagnosis: Acute hypoxic respiratory failure secondary to cardiorenal syndrome secondary to worsening Stage IV CKD Other Date/Time: 04/14/24 09:48
== END 2024-04-14 12:21 | disposition expired | DRG 291 ==
LOC: ED 19:30 → SUATTDRO 03-31 02:33 → EDINP 03-31 02:33 → 1E 03-31 05:27 → 4W 03-31 23:11 → 3W 04-11 17:42